=== PATIENT | male | born 1945 | race African-American/Black ===

== ENCOUNTER 2016-07-11 16:37 | Inpatient (IN) | payer OTHER, MEDICARE ==
[~2016-07-11] VITALS: Ht 177.8 cm; Wt 63.7 kg
[~2016-07-11 16:37] MED LIST: 1-ME1LIQ PO; CLON.1 PO; GLIM2TAB PO; LANTUSP SQ; METO50TA PO; PRAV20 PO
[2016-07-11 17:09] VITALS: BP 144/65; PULSE 79; RESP 18; TEMP 98.5; O2SAT 98
[2016-07-11] MEDS ORDERED: INSULIN HUMAN REGULAR 1,000 UNITS/10 ML VIAL IV PUSH ONE (17:30)
[2016-07-11] MEDS ORDERED: ONDANSETRON HCL 4 MG/2 ML VIAL IV ONE (17:30)
[2016-07-11] MEDS ORDERED: SODIUM CHLOR 0.9% 1000 ML INJ 1,000 ML IV ONE ×2 (17:30→19:00)
[2016-07-11] MEDS ORDERED: GLIM2TAB PO (17:37)
[2016-07-11] MEDS ORDERED: LISI40TA PO (17:37)
[2016-07-11] MEDS ORDERED: AMLO10TA2 PO (17:37)
[2016-07-11] MEDS ORDERED: CLON0.1T PO (17:37)
[2016-07-11] MEDS ORDERED: PRAV20TA2 PO (17:37)
[2016-07-11] MEDS ORDERED: METO50TA PO (17:37)
[2016-07-11] MEDS ORDERED: METF500T PO (17:38)
--- NOTE | 2016-07-11 17:41 | PD ---
HPI Chief Complaint: Diabetic Time Seen by Provider: 17:13 Travel History International Travel<30 days: No Contact w/Intl Traveler<30days: No Traveled to known affect area: No History of Present Illness HPI Patient had concerns of difficult to control blood sugar and some generalized weakness. He says usually sugar during the day as around 120 but today was getting around 400. He has mild nausea. No active vomiting or fever or chest pain or abdominal pain. Symptoms severity is mild to moderate. No alleviating factors. Accu-Chek here is 383. He does not use insulin. He reports compliance with his diabetic pills. Duration one day PFSH Past Medical History Arthritis: Yes Cancer: Yes (RECTAL) Cardiovascular Problems: No Chemotherapy: Yes Diabetes: Yes Patient Takes Glucophage: Yes Endocrine: Yes Gastrointestinal Disorders: Yes (RECTAL CANCER) Genitourinary: No Hepatitis: No Hiatal Hernia: No Hypertension: Yes Immune Disorder: No Implanted Vascular Access Dvce: Yes (PORT RIGHT CHEST) Medical other: No Musculoskeletal: Yes (ARTHRITIS) Neurologic: No Psychiatric: No Reproductive: No Respiratory: No Radiation Therapy: Yes Thyroid Disease: No ?: Not Past Surgical History Abdominal Surgery: Yes (BOWEL RESECTION IN 2003 TO REMOVE CANCER) AICD: No Joint Replacement: No Pacemaker: No Other Surgery: Yes (RECTAL) Social History Alcohol Use: Yes (6 BEERS WKLY) Tobacco Use: No Substance Use: No Allergies-Medications (Allergen,Severity, Reaction): Coded Allergies: No Known Allergies (Verified , 09/03/12) Reported Meds & Prescriptions Reported Meds & Active Scripts Active Reported Metformin (Metformin HCl) 500 Mg Tab 500 Mg PO BIDPC With meals Clonidine (Clonidine HCl) 0.1 Mg Tab 0.1 Mg PO DAILY Lisinopril 40 Mg Tab 40 Mg PO DAILY Amlodipine (Amlodipine Besylate) 10 Mg Tab 10 Mg PO DAILY Glimepiride 2 Mg Tab 2 Mg PO BIDAC Metoprolol Tartrate 50 Mg Tab 50 Mg PO BID Pravastatin 20 Mg Tab 20 Mg PO DAILY Review of Systems General / Constitutional: No: Fever Eyes: No: Visual changes HENT: No: Headaches Cardiovascular: No: Chest Pain or Discomfort Respiratory: No: Shortness of Breath Gastrointestinal: Positive: Nausea, No: Abdominal Pain Genitourinary: No: Dysuria Musculoskeletal: Positive: Weakness, No: Pain Skin: No Rash Neurologic: Positive: Weakness Psychiatric: No: Depression Endocrine: No: Polydipsia Hematologic/Lymphatic: No: Easy Bruising Physical Exam Narrative GENERAL: Thin elderly well-developed patient in no apparent distress. SKIN: Focused skin assessment reveals no rash and nodules. Skin is Warm and dry. HEAD: Atraumatic. Normocephalic. EYES: Pupils equal and round. No scleral icterus. No injection or drainage. ENT: No nasal bleeding or discharge. Mucous membranes pink and moist. NECK: Trachea midline. No JVD. CARDIOVASCULAR: Regular rate and rhythm. No murmur appreciated. RESPIRATORY: No accessory muscle use. Clear to auscultation. Breath sounds equal bilaterally. GASTROINTESTINAL: Abdomen soft, non-tender, nondistended. Hepatic and splenic margins not palpable. MUSCULOSKELETAL: No obvious deformities. No clubbing. No cyanosis. No edema. NEUROLOGICAL: Awake and alert. No obvious cranial nerve deficits. Motor grossly within normal limits. Normal speech. PSYCHIATRIC: Appropriate mood and affect; insight and judgment normal. Data Data Last Documented VS Vital Signs Date Time Temp Pulse Resp B/P Pulse Ox O2 Delivery O2 Flow Rate FiO2 07/11/16 17:13 86 18 97 Room Air 07/11/16 17:09 98.5 144/65 Orders Iv Access Insert/Monitor (07/11/16 17:26) Complete Blood Count With Diff (07/11/16 17:26) Basic Metabolic Panel (Bmp) (07/11/16 17:26) Insulin Human Regular Inj (Novolin R Inj (07/11/16 17:30) Sodium Chlor 0.9% 1000 Ml Inj (Ns 1000 M (07/11/16 17:30) Ondansetron Inj (Zofran Inj) (07/11/16 17:30) Urinalysis - C+S If Indicated (07/11/16 18:19) Chest, Single Ap (07/11/16 ) Labs Laboratory Tests Test 07/11/16 17:40 White Blood Count 23.9 TH/MM3 Red Blood Count 3.63 MIL/MM3 Hemoglobin 10.0 GM/DL Hematocrit 31.2 % Mean Corpuscular Volume 85.8 FL Mean Corpuscular Hemoglobin 27.5 PG Mean Corpuscular Hemoglobin 32.0 % Concent Red Cell Distribution Width 13.6 % Platelet Count 285 TH/MM3 Mean Platelet Volume 9.2 FL Neutrophils (%) (Auto) 93.1 % Lymphocytes (%) (Auto) 2.3 % Monocytes (%) (Auto) 4.4 % Eosinophils (%) (Auto) 0.0 % Basophils (%) (Auto) 0.2 % Neutrophils # (Auto) 22.3 TH/MM3 Lymphocytes # (Auto) 0.5 TH/MM3 Monocytes # (Auto) 1.1 TH/MM3 Eosinophils # (Auto) 0.0 TH/MM3 Basophils # (Auto) 0.0 TH/MM3 CBC Comment DIFF FINAL Differential Comment Sodium Level 146 MEQ/L Potassium Level 4.6 MEQ/L Chloride Level 113 MEQ/L Carbon Dioxide Level 21.4 MEQ/L Anion Gap 12 MEQ/L Blood Urea Nitrogen 69 MG/DL Creatinine 2.45 MG/DL Estimat Glomerular Filtration 32 ML/MIN Rate Random Glucose 386 MG/DL Calcium Level 9.6 MG/DL [facility] Medical Decision Making Medical Screen Exam Complete: Yes Emergency Medical Condition: Yes Medical Record Reviewed: Yes Differential Diagnosis Hyperglycemia, DKA, noncompliance Narrative Course I have reviewed the patient's electronic medical record. IV placed I gave him 1 L normal saline IV and 8 units IV regular insulin CBC shows leukocytosis of 23,000 Metabolic profile reveals some hyperglycemia and worsening of baseline renal function No clinical suspicion of DKA I gave him IV Zofran Giving him a second liter of saline Case checked out to Dr. Ferreira to assist with disposition I've added urinalysis and chest x-ray given his leukocytosis although he does not look septic or toxic Ganesh Marie MD July 11, 2016 17:41
[2016-07-11 18:00] LABS: AUTOMATED NEUTROPHIL # 22.3 TH/MM3 (1.8-7.7); BASOPHIL % 0.2 % (0.0-2.0); HEMATOCRIT 31.2 % (39.0-51.0); HEMO FLAGS DIFF FINAL; LYMPH % 2.3 % (9.0-44.0); LYMPHOCYTE # 0.5 TH/MM3 (1.0-4.8); MEAN CELL VOLUME 85.8 FL (80.0-100.0); MEAN CORPUSCULAR HEMOGLOBIN 27.5 PG (27.0-34.0); MONO % 4.4 % (0.0-8.0); NEUT % 93.1 % (16.0-70.0); PLATELET COUNT 285 TH/MM3 (150-450); RED BLOOD COUNT 3.63 MIL/MM3 (4.50-5.90); RED CELL DISTRIBUTION WIDTH 13.6 % (11.6-17.2); WHITE BLOOD COUNT 23.9 TH/MM3 (4.0-11.0)
[2016-07-11 18:30] LABS: BICARBONATE 21.4 MEQ/L (21.0-32.0)
[2016-07-11 18:32] LABS: POTASSIUM 4.6 MEQ/L (3.5-5.1)
[2016-07-11 19:02] VITALS: BP 167/74; PULSE 89; RESP 18; O2SAT 96
--- NOTE | 2016-07-11 19:06 | PD ---
Data Data Last Documented VS Vital Signs Date Time Temp Pulse Resp B/P Pulse Ox O2 Delivery O2 Flow Rate FiO2 07/11/16 21:20 82 18 148/67 100 Room Air 07/11/16 17:09 98.5 Orders Iv Access Insert/Monitor (07/11/16 17:26) Complete Blood Count With Diff (07/11/16 17:26) Basic Metabolic Panel (Bmp) (07/11/16 17:26) Insulin Human Regular Inj (Novolin R Inj (07/11/16 17:30) Sodium Chlor 0.9% 1000 Ml Inj (Ns 1000 M (07/11/16 17:30) Ondansetron Inj (Zofran Inj) (07/11/16 17:30) Urinalysis - C+S If Indicated (07/11/16 18:19) Chest, Single Ap (07/11/16 ) Sodium Chlor 0.9% 1000 Ml Inj (Ns 1000 M (07/11/16 19:00) Vancomycin Inj (Vancomycin Inj) (07/11/16 19:45) Piperacil-Tazo 3.375 Gm Premix (Zosyn 3. (07/11/16 19:45) Wound Culture And Gram Stain (07/11/16 19:39) Blood Culture (07/11/16 19:39) Lactic Acid (07/11/16 19:39) Foot, Limited (2vws) (07/11/16 ) Tibia/Fibula (Ap/Lat) (07/11/16 ) Admit Order (Ed Use Only) (07/11/16 21:39) Labs Laboratory Tests Test 07/11/16 07/11/16 07/11/16 17:40 18:50 19:57 White Blood Count 23.9 TH/MM3 Red Blood Count 3.63 MIL/MM3 Hemoglobin 10.0 GM/DL Hematocrit 31.2 % Mean Corpuscular Volume 85.8 FL Mean Corpuscular Hemoglobin 27.5 PG Mean Corpuscular Hemoglobin 32.0 % Concent Red Cell Distribution Width 13.6 % Platelet Count 285 TH/MM3 Mean Platelet Volume 9.2 FL Neutrophils (%) (Auto) 93.1 % Lymphocytes (%) (Auto) 2.3 % Monocytes (%) (Auto) 4.4 % Eosinophils (%) (Auto) 0.0 % Basophils (%) (Auto) 0.2 % Neutrophils # (Auto) 22.3 TH/MM3 Lymphocytes # (Auto) 0.5 TH/MM3 Monocytes # (Auto) 1.1 TH/MM3 Eosinophils # (Auto) 0.0 TH/MM3 Basophils # (Auto) 0.0 TH/MM3 CBC Comment DIFF FINAL Differential Comment Sodium Level 146 MEQ/L Potassium Level 4.6 MEQ/L Chloride Level 113 MEQ/L Carbon Dioxide Level 21.4 MEQ/L Anion Gap 12 MEQ/L Blood Urea Nitrogen 69 MG/DL Creatinine 2.45 MG/DL Estimat Glomerular Filtration 32 ML/MIN Rate Random Glucose 386 MG/DL Calcium Level 9.6 MG/DL Total Creatine Kinase 105 U/L Urine Color YELLOW Urine Turbidity HAZY Urine pH 5.0 Urine Specific [place] 1.011 Urine Protein 30 mg/dL Urine Glucose (UA) 1000 mg/dL Urine Ketones 10 mg/dL Urine Occult Blood SMALL Urine Nitrite NEG Urine Bilirubin NEG Urine Urobilinogen LESS THAN 2.0 MG/DL Urine Leukocyte Esterase NEG Urine RBC 1 /hpf Urine WBC 1 /hpf Urine Amorphous Sediment OCC Urine Bacteria RARE /hpf Urine Mucus FEW /lpf Microscopic Urinalysis Comment CULT NOT INDICATED Lactic Acid Level 1.7 mmol/L MDM Medical Record Reviewed: Yes Supervised Visit with CHARLY: No Narrative Course Please refer to Dr Marie's note. CBC & BMP Diagram 07/11/16 17:40 Neutrophils 93% UA: No UTI CXR: No PNA 1939: R foot infected with foul odor. Zosyn Vanco started, cultures sent, stat plain films ordered for poss necrotizing fasciitis 2026: Plain films made available and reviewed; stat call to ortho, foot xray shows necrotizing fasciitis 2042: d/w Dr Frederick for ortho who will evaluate at the bedside; d/w Dr Frederick shortly after eval; pt refused operative intervention tonight 2258: d/w Dr Garnica for FMR, continue IV abx, ortho evaluation in AM again; NPO past midnight Sepsis Criteria SIRS Criteria (2 or more): WBC > 04185, < 4000 or > 10% bands Diagnosis Primary Impression: Necrotizing fasciitis Additional Impressions: Hyperglycemia REBECCA (acute kidney injury) Diabetes Qualified Code: 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
[2016-07-11 19:15] VITALS: BP 134/66; PULSE 96; RESP 18; O2SAT 98
[2016-07-11 19:23] LABS: BACTERIA, URINE RARE /hpf; BLOOD, URINE SMALL (NEG); GLUCOSE,URINE 1000 mg/dL (NEG); KETONE, URINE 10 mg/dL (NEG); MUCUS URINE FEW /lpf (OCC); NITRITE,URINE NEG (NEG); URINE COLOR YELLOW (YELLW/STRAW)
[2016-07-11 19:24] LABS: COMMENT (UR) CULT NOT INDICATED; CULTURE IF INDICATED CULT NOT INDICATED
--- NOTE | 2016-07-11 19:38 | RADRPT ---
EXAM DATE/TIME: 07/11/2016 19:11 [facility] COMPARISON: CHEST SINGLE AP, June 15, 2015, 18:37. INDICATIONS : Weakness. MEDICAL HISTORY : Rectal cancer. SURGICAL HISTORY : [id number]. ENCOUNTER: Initial ACUITY: 2 days PAIN SCORE: 2/10 LOCATION: Bilateral chest FINDINGS: [id number] is present on the right. There is a small line across the apex of the left lung that I do not think is a pneumothorax. Heart and pulmonary vascularity are normal. Portions of the bony s keleton visualized are unremarkable. CONCLUSION: Negative chest. Noe Salcedo MD FACR on July 11, 2016 at 19:29 Board Certified Radiologist. This report was verified electronically.
[2016-07-11] MEDS ORDERED: PIPERACIL-TAZO 3.375 GM PREMIX 50 ML IV ONE (19:45)
[2016-07-11] MEDS ORDERED: VANCOMYCIN INJ 1,500 MG in SODIUM CHLORID 0.9% 500 ML INJ 500 ML IV ONE (19:45)
--- NOTE | 2016-07-11 20:30 | RADRPT ---
EXAM DATE/TIME: 07/11/2016 20:04 [facility] COMPARISON: No previous studies available for comparison. INDICATIONS : Right tibia pain and leakage. MEDICAL HISTORY : None. SURGICAL HISTORY : None. ENCOUNTER: Initial ACUITY: 1 week PAIN SCORE: 10/10 LOCATION: Right distal tibia. FINDINGS: There is subcutaneous air in the foot that extends to the ankle. Extensive digital art barbra calcifications are noted. CONCLUSION: Subcutaneous air that extends to the ankle mortise. Noe Salcedo MD FACR on July 11, 2016 at 20:24 Board Certified Radiologist. This report was verified electronically.
--- NOTE | 2016-07-11 20:34 | RADRPT ---
EXAM DATE/TIME: 07/11/2016 20:06 [facility] COMPARISON: No previous studies available for comparison. INDICATIONS : Right distal foot leakage. MEDICAL HISTORY : None. SURGICAL HISTORY : None. ENCOUNTER: Initial ACUITY: 1 week PAIN SCORE: 10/10 LOCATION: Right distal foot. FINDINGS: Extensive air is seen in the subcutaneous tissues of the foot extending to the level of the ankle mor tise consistent with necrotizing fasciitis. CONCLUSION: Subcutaneous air as described above. Noe Salcedo MD FACR on July 11, 2016 at 20:30 Board Certified Radiologist. This report was verified electronically.
[2016-07-11 21:20] VITALS: BP 148/67; PULSE 82; RESP 18; O2SAT 100
--- NOTE | 2016-07-11 22:02 | HHI.HP ---
[facility] Service Family Medicine Primary Care Physician Randy Marroquin MD Admission Diagnosis R Foot Necrotizing Fasciitis; Hyperglycemia Diagnoses: Chief Complaint: right foot pain International Travel<30 Days: No Contact w/Intl Traveler<30days: No History of Present Illness 71 y/o -[place] male with history of HTN, DM, rectal cancer presents with right foot pain. Of note, pt is a poor historian, but states he "stubbed" his foot about two months ago, since then it has been sore. Pt says the pain has waxed and waned since then. He would apply some cream on it, which would help some. States he would wash his foot as needed. Has noticed some pus and drainage, but would just wash it off. Denies any numbness/tingling in his feet. Denies any trauma, cuts, ulcers on the foot previously. No history of wounds. Has not taken any pain medicaitons. Denies any fever/chills. No chest pain, SOB , abdominal pain. Has noticed a foul smell. Denies any history of MRSA infection. Doesn't see a glass sander belt. Was seen in Dr. Marroquin's office yesterday , who recommended supportive treatment. Does state it is painful to walk, but walks around ok. History of chronic diabetes, was on insulin in the past, but not currently. Takes several oral medications. Checks his BG every morning, states it usually runs around 160. (Damon Pearson MD R1) Review of Systems ROS Limitations: Poor Historian Constitutional: DENIES: Diaphoretic episodes, Fever, Weight loss, Chills, Night Sweats Endocrine: DENIES: Polydipsia, Polyuria Eyes: COMPLAINS OF: Vision loss, DENIES: Eye pain Ears, nose, mouth, throat: DENIES: Hearing loss, Throat pain Respiratory: DENIES: Cough, Sputum production, Shortness of breath Cardiovascular: DENIES: Chest pain, Palpitations, Syncope, Lower Extremity Edema Gastrointestinal: DENIES: Abdominal pain, Black stools, Bloody stools, Constipation, Diarrhea, Nausea, Vomiting Genitourinary: DENIES: Sexual dysfunction, Urinary frequency, Urgency Musculoskeletal: DENIES: Muscle aches, Stiffness, Back pain Integumentary: DENIES: Abnormal pigmentation, Rash Hematologic/lymphatic: DENIES: Bruising, Lymphadenopathy Immunologic/allergic: DENIES: Eczema, Urticaria Neurologic: DENIES: Abnormal gait, Headache Psychiatric: DENIES: Anxiety, Confusion (Damon Pearson MD R1) Past Family Social History Past Medical History DM HTN Kidney disease Rectal cancer Past Surgical History Rectal cancer-2003 s/p bowel resection Reported Medications Reported Meds & Active Scripts Active Reported Metformin (Metformin HCl) 500 Mg Tab 500 Mg PO BIDPC With meals Clonidine (Clonidine HCl) 0.1 Mg Tab 0.1 Mg PO DAILY Lisinopril 40 Mg Tab 40 Mg PO DAILY Amlodipine (Amlodipine Besylate) 10 Mg Tab 10 Mg PO DAILY Glimepiride 2 Mg Tab 2 Mg PO BIDAC Metoprolol Tartrate 50 Mg Tab 50 Mg PO BID Pravastatin 20 Mg Tab 20 Mg PO DAILY (Damon Pearson MD R1) Allergies: Coded Allergies: No Known Allergies (Verified , 09/03/12) Active Ordered Medications Active Medications Insulin Human Regular 8 units 8 units ONCE ONCE IV PUSH Last administered on 17:30; Admin Dose 8 UNITS; Start 07/11/16 at 17:30; Stop 07/11/16 at 17: 31; Status DC Ondansetron HCl 4 mg 4 mg ONCE ONCE IV Last administered on 07/11/16 17:30; Admin Dose 4 MG; Start 07/11/16 at 17:30; Stop 07/11/16 at 17:31; Status DC Piperacillin Sod/ Tazobactam Sod (Zosyn 3.375 Gm Premix) 50 ml @ 100 mls/hr ONCE ONCE IV Last administered on 07/11/16 20:22; Admin Dose 100 MLS/HR; Start 07/11/16 at 19:45; Stop 07/11/16 at 20:14; Status DC Sodium Chloride 1,000 ml @ 2,000 mls/hr Q30M ONCE IV Last administered on 19:20; Admin Dose 2,000 MLS/HR; Start 07/11/16 at 19:00; Stop 07/11/16 at 19:29; Status DC Sodium Chloride (NS 1000 ml Inj) 1,000 ml @ 2,000 mls/hr Q30M ONCE IV Last administered on 07/11/16 17:30; Admin Dose 2,000 MLS/HR; Start 07/11/16 at 17: 30; Stop 07/11/16 at 17:59; Status DC Vancomycin HCl 1500 mg/Sodium Chloride 515 ml @ 257.5 mls/ hr ONCE ONCE IV Last administered on 07/11/16t 21:16; Admin Dose 257.5 MLS/HR; Start 07/11/16 at 19:45; Stop 07/11/16 at 21:44; Status DC Family History Mother-unknown cancer Father-smoker Siblings-healthy Social History Former tank truck operator Smoked in past, not since 1981 Denies alcohol use Denies illicit drug use Lives with at home. (Damon Pearson MD R1) Physical Exam Vital Signs Vital Signs Date Time Temp Pulse Resp B/P Pulse Ox O2 Delivery O2 Flow Rate FiO2 07/11/16 21:20 82 18 148/67 100 Room Air 07/11/16 19:15 96 18 134/66 98 Room Air 07/11/16 19:02 89 18 167/74 96 Room Air 07/11/16 17:13 86 18 97 Room Air 07/11/16 17:09 98.5 79 18 144/65 98 Physical Exam GENERAL: This is a well-nourished, well-developed patient, in no apparent distress. SKIN: Cool and dry. Infusaport in place on right upper chest. HEAD: Atraumatic. Normocephalic. Missing several front teeth. EYES: Pupils equal round and reactive. Bilateral cataracts ENT: Throat without erythema, tonsillar hypertrophy or exudate. Uvula midline. Airway patent. NECK: Trachea midline. No JVD or lymphadenopathy. Supple, nontender CARDIOVASCULAR: Regular rate and rhythm without murmurs, gallops, or rubs. RESPIRATORY: Clear to auscultation. Breath sounds equal bilaterally. No wheezes , rales, or rhonchi. GASTROINTESTINAL: Abdomen soft, non-tender, nondistended. No hepato-splenomegaly , or palpable masses. No guarding. MUSCULOSKELETAL: Right foot bandaged. Right foot swollen and crepitus appreciated. Pulses intact bilaterally. NEUROLOGICAL: Awake and alert. Motor and sensory grossly within normal limits. Normal speech. Laboratory Laboratory Tests Test 07/11/16 07/11/16 07/11/16 17:40 18:50 19:57 White Blood Count 23.9 Red Blood Count 3.63 Hemoglobin 10.0 Hematocrit 31.2 Mean Corpuscular Volume 85.8 Mean Corpuscular Hemoglobin 27.5 Mean Corpuscular Hemoglobin 32.0 Concent Red Cell Distribution Width 13.6 Platelet Count 285 Mean Platelet Volume 9.2 Neutrophils (%) (Auto) 93.1 Lymphocytes (%) (Auto) 2.3 Monocytes (%) (Auto) 4.4 Eosinophils (%) (Auto) 0.0 Basophils (%) (Auto) 0.2 Neutrophils # (Auto) 22.3 Lymphocytes # (Auto) 0.5 Monocytes # (Auto) 1.1 Eosinophils # (Auto) 0.0 Basophils # (Auto) 0.0 CBC Comment DIFF FINAL Differential Comment Sodium Level 146 Potassium Level 4.6 Chloride Level 113 Carbon Dioxide Level 21.4 Anion Gap 12 Blood Urea Nitrogen 69 Creatinine 2.45 Estimat Glomerular Filtration 32 Rate Random Glucose 386 Calcium Level 9.6 Urine Color YELLOW Urine Turbidity HAZY Urine pH 5.0 Urine Specific [place] 1.011 Urine Protein 30 Urine Glucose (UA) 1000 Urine Ketones 10 Urine Occult Blood SMALL Urine Nitrite NEG Urine Bilirubin NEG Urine Urobilinogen LESS THAN 2.0 Urine Leukocyte Esterase NEG Urine RBC 1 Urine WBC 1 Urine Amorphous Sediment OCC Urine Bacteria RARE Urine Mucus FEW Microscopic Urinalysis Comment CULT NOT INDICATED Lactic Acid Level 1.7 Date/Time Procedure Status Source Growth 07/11/16 20:00 Aerobic Blood Culture Received Blood Peripheral Pending 07/11/16 20:00 Anaerobic Blood Culture Received Blood Peripheral Pending (Damon Pearson MD R1) Result Diagram: 07/11/16 1740 07/11/16 1740 Assessment and Plan Assessment and Plan 71 y/o -[place] male with history of HTN, DM presents with left foot pain, found to have necrotizing fasciitis. Will admit for antibiotics and orthopedic consultation for management. Code Status Full Discussed Condition With Dr. Garnica (Damon Pearson MD R1) Attending Attestation THIS CASE WAS DISCUSSED WITH THE RESIDENT PHYSICIANS. I HAVE REVIEWED THE RECORD AND AGREE WITH THE ABOVE NOTE AND PLAN OF CARE WAS DISCUSSED. I HAVE AUTHORIZED THE ORDER FOR ADMISSION TO AN IN-PATIENT STATUS. (Rodrigo Fishman MD) Problem List: (1) Necrotizing fasciitis Status: Acute Plan: Pt with 2 month history of right foot pain. Unsure of inciting mechanism. Pt's history positive for diabetes, poorly controlled on admission. Xrays performed in ED, consistent with necrotizing fasciitis. Crepitus on exam. ED physician discussed case with Ortho who evaluated pt. Pt refusing operative intervention tonight. Pt will likely need amputation. WBC 23.9, 93% neutrophils; Lactic acid 1.7 Afebrile, HR and RR wnl. No hypotension Foot xray: Extensive air seen in subcutaneous tissues of the foot extending to the level of the ankle mortise consistent with necrotizing fasciitis -Orthopedic surgery consulted, appreciate recs -Continue Vancomycin for MRSA coverage; pharmacy consulted -Continue Zosyn 3.375g q6H, renally dosed -Clindamycin 600mg IV q8H for its antitoxin effects -Blood cultures pending -Wound cultures pending -NPO after midnight -Morphine PRN pain control -IV fluids (2) Diabetes Status: Chronic Plan: History of chronic diabetes. Pt states his home BG runs around 160s. Elevated to 386 on admission. Pt on metformin and glimepiride at home. May benefit from insulin upon discharge at f/u with PCP -Hold home oral meds -Accuchecks at bedside -Low-dose sliding scale insulin (3) REBECCA (acute kidney injury) Status: Chronic Plan: BUN 69, Cr 2.45 on admission; BUN/Cr 28, consistent with prerenal etiology. Previous baseline of 1.4 at last admission, after trending down from 2.38. Likely component of diabetes and HTN. Does see kidney doctor. Received 1L bolus in ED -Continue IV fluids -Daily BMPs (4) HTN (hypertension) Status: Chronic Plan: BP 144/65 on admission. On several outpatient medications. Doesn't check his BPs at home Continue home meds -Amlodipine 10mg daily -Clonidine 0.1mg daily -Metoprolol 50mg BID -Lisinopril 40mg daily (5) FEN Status: Acute Plan: Fluids: NS @ 125mls/hr Electrolytes: mildly elevated Na, Cl; continue to monitor Nutrition: NPO at midnight DVT ppx: SCDs (Damon Pearson MD R1) Physician Certification 2 Midnight Certification Type: Admission for Inpatient Services Order for Inpatient Services The services are ordered in accordance with Medicare regulations or non- Medicare payer requirements, as applicable. In the case of services not specified as inpatient-only, they are appropriately provided as inpatient services in accordance with the 2-midnight benchmark. Estimated LOS (days): 3 days is the estimated time the patient will need to remain in the hospital, assuming treatment plan goals are met and no additional complications. 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
[2016-07-11] MEDS ORDERED: ACETAMINOPHEN 325 MG TAB PO PRN (22:30)
[2016-07-11] MEDS ORDERED: ONDANSETRON HCL 4 MG/2 ML VIAL IVP PRN (22:30)
[2016-07-11] MEDS ORDERED: SODIUM CHLORIDE 0.9% FLUSH 10 ML FLUSH IV FLUSH PRN (22:30)
[2016-07-11] MEDS ORDERED: NALOXONE HCL 0.4 MG/ML AMP IV PRN ×2 (22:30→22:45)
[2016-07-11] MEDS ORDERED: GLUCAGON 1 MG/ML VIAL OTHER PRN (22:45)
[2016-07-11] MEDS ORDERED: Vancomycin Consult Pharmacy 1 EA OTHER SCH (22:45)
[2016-07-11] MEDS ORDERED: DEXTROSE 50% IN WATER 50 ML VIAL(D50) IV PRN (22:45)
[2016-07-11] MEDS ORDERED: MORPHINE SULFATE 4 MG/ML INJ IV PRN ×2 (22:45)
[2016-07-11] MEDS ORDERED: DOCUSATE SODIUM 50 MG/SENNA 8.6 MG TAB PO PRN (23:00)
[2016-07-11] MEDS ORDERED: ENALAPRILAT 1.25 MG/ML VIAL IV PRN (23:15)
[2016-07-11] MEDS: SODIUM CHLOR 0.9% 1000 ML INJ 1,000 ML IV SCH (23:33)
[2016-07-12] VITALS (7 sets, daily range): BP systolic 122–173; BP diastolic 56–80; PULSE 58–90; RESP 16–20; TEMP 95.6–100.6; O2SAT 95–98
[2016-07-12] MEDS: MORPHINE SULFATE 4 MG/ML INJ IV PRN ×2 (00:41→08:44)
[2016-07-12 00:47] LABS: APTT (PATIENT) 29.2 SEC (24.3-30.1); INTERNATIONAL NORMALIZED RATIO 1.1 RATIO; PROTHROMBIN TIME - PATIENT 12.1 SEC (9.8-11.6)
[2016-07-12] MEDS: CLINDAMYCIN INJ 600 MG in SODIUM CHLORIDE 0.9% INJ 100 ML IV SCH ×4 (00:51→23:53)
[2016-07-12] MEDS: PIPERACIL-TAZO 2.25 GM PREMIX 50 ML IV SCH ×4 (00:54→20:44)
[2016-07-12] MEDS ORDERED: PIPERACIL-TAZO 3.375 GM PREMIX 50 ML IV SCH (02:00)
[2016-07-12] MEDS: SODIUM CHLOR 0.9% 1000 ML INJ 1,000 ML IV SCH ×3 (05:44→20:45)
--- NOTE | 2016-07-12 05:48 | MB ---
cc: ONEL JAIME M.D. DATE OF CONSULTATION 07/12/2016 REASON FOR CONSULTATION Requested to evaluate right foot necrotizing fasciitis. HISTORY OF PRESENT ILLNESS Onel Quarles is a 71-year-old [id number] diabetic male who states he has had difficulty with his right foot over at least a 2-month period time and over the last 2 weeks it has gotten particularly bad and he has had significant weakness and some nausea and he presented to the ER and was found to have a white blood cell count of 23.9 purulent drainage and necrosis and foul odor from his right foot with some gas present on the dorsum of the foot, midfoot and some fluctuance but no significant tension on the plantar surface arch region of the midfoot with marked purulent drainage and necrosis of several of his toes. The patient does have a faint pulse intact and he does have a faint pulse on the other side. He has got sensation on the other foot and he has sensation at the ankle on the right side. He has good motion of his hip and his knee pain and he does not appear to be any in any distress. PAST MEDICAL HISTORY 1. Rectal cancer. 2. Diabetes. 3. He has undergone chemotherapy and had a port in his right chest wall. 4. He has prior surgical intervention for the cancer. SOCIAL HISTORY The patient does state he drinks beer. He does not use alcohol. ALLERGIES He has no known drug allergies. REGULAR MEDICATIONS 1. Metformin. 2. Clonidine. 3. Lisinopril. 4. Amlodipine. 5. Glimepiride. 6. Metoprolol. 7. Pravastatin. PHYSICAL EXAMINATION As noted above. X-RAYS X-ray examination of the foot from 07/11/2016 does show some gas on the plantar surface of the foot and some gas on the dorsum arch of the foot. He has got calcified vessels, some lytic changes of several of the bones of his toes. ASSESSMENT Gas gangrene. MEDICAL DECISION MAKING The patient's condition was discussed. Options for treatment were discussed. As well discussed with the emergency room physician the patient is indicated for below-knee amputation. The fact that he has had this process going on for several months and his vital signs look very good make me believe that this is not an emergency that has to be done tonight and that it is appropriate for the patient to mentally prepare psychologically. He wishes to talk this over with his and I think that is appropriate and I have told him that I will talk to him again on Friday. The original conversation was about 8:30 on 07/11 and I explained, if he is significantly worsening, then we would need to proceed sooner but otherwise recommendation would be amputation at a later either by me or one of my partners. The patient has a good understanding. He is not ready make a decision at this time. We will continue to follow him. All of his questions were answered. MD YOBANY White/MELANIA /12:57 AM /5:38 AM
[2016-07-12] MEDS: INSULIN ASPART SUPPLEMENTAL SCALE SQ SCH ×4 (05:51→21:30)
[2016-07-12 06:17] LABS: AUTOMATED NEUTROPHIL # 23.6 TH/MM3 (1.8-7.7); BASOPHIL % 0.1 % (0.0-2.0); HEMATOCRIT 29.1 % (39.0-51.0); HEMO FLAGS DIFF FINAL; LYMPH % 2.6 % (9.0-44.0); LYMPHOCYTE # 0.7 TH/MM3 (1.0-4.8); MEAN CELL VOLUME 85.4 FL (80.0-100.0); MEAN CORPUSCULAR HEMOGLOBIN 27.4 PG (27.0-34.0); MONO % 5.4 % (0.0-8.0); NEUT % 91.9 % (16.0-70.0); PLATELET COUNT 274 TH/MM3 (150-450); RED CELL DISTRIBUTION WIDTH 13.6 % (11.6-17.2); WHITE BLOOD COUNT 25.6 TH/MM3 (4.0-11.0)
[2016-07-12 06:27] LABS: BICARBONATE 21.3 MEQ/L (21.0-32.0); POTASSIUM 4.4 MEQ/L (3.5-5.1)
[2016-07-12] MEDS ORDERED: VANCOMYCIN INJ 1,250 MG in SODIUM CHLOR 0.9% 250 ML INJ 250 ML IV SCH (08:00)
[2016-07-12] MEDS: cloNIDine HCL 0.1 MG TAB PO SCH (08:45)
[2016-07-12] MEDS: PRAVASTATIN SOD 20 MG TAB PO SCH (08:45)
[2016-07-12] MEDS: LISINOPRIL 20 MG TAB PO SCH (08:45)
[2016-07-12] MEDS: METOPROLOL TARTRATE 50 MG TAB PO SCH ×2 (08:45→20:50)
[2016-07-12] MEDS: SODIUM CHLORIDE 0.9% FLUSH 10 ML FLUSH IV FLUSH SCH ×2 (08:49→20:44)
[2016-07-12] MEDS ORDERED: GENTAMICIN SULFATE 80 MG/2 ML VIAL ONE (09:06)
[2016-07-12] MEDS ORDERED: ACETAMINOPHEN 1000 MG/100 ML VIAL IV ONE (09:10)
[2016-07-12] MEDS ORDERED: FAMOTIDINE 20 MG/2 ML VIAL ONE (09:10)
--- NOTE | 2016-07-12 09:29 | HHI.FPPN ---
Subjective Remarks FM Attending Note: Patient seen and examined. S: Chart and all resident physician notes reviewed. In summary this is a 71 year old male who was admitted with an admission diagnosis of Rt Foot Necrotizing Fasciitis; Hyperglycemia. Patient reported minor injury to foot about 2 months prior. Had noted some pain. No fever. Found to have infection with subcutaneous emphysema; elevated WBC; probable necrotizing fasciitis. Patient underwent a right BKA amputation. Objective Vitals Vital Signs Date Time Temp Pulse Resp B/P Pulse Ox O2 Delivery O2 Flow Rate FiO2 07/12/16 08:00 95.7 76 17 142/72 98 07/12/16 04:00 96.9 66 18 151/69 96 07/12/16 00:30 100.6 90 20 173/80 95 07/11/16 23:16 21 07/11/16 21:20 82 18 148/67 100 Room Air 07/11/16 19:15 96 18 134/66 98 Room Air 07/11/16 19:02 89 18 167/74 96 Room Air 07/11/16 17:13 86 18 97 Room Air 07/11/16 17:09 98.5 79 18 144/65 98 I/O 07/11/16 07/11/16 07/11/16 07/12/16 07/12/16 07/12/16 07:00 15:00 23:00 07:00 15:00 23:00 Intake Total 0 ml Output Total 550 ml Balance -550 ml Intake Oral 0 ml Output Urine Total 550 ml # Bowel Movements 0 Result Diagram: 07/12/16 0542 07/12/16 0542 Other Results Item Value Date Time Total Creatine Kinase 105 U/L 07/11/16 1740 Urine Specific [place] 1.011 07/11/16 1850 Urine Occult Blood SMALL H 07/11/16 1850 Urine Nitrite NEG 07/11/16 1850 Urine Leukocyte Esterase NEG 07/11/16 1850 Urine RBC 1 /hpf 07/11/16 1850 Urine WBC 1 /hpf 07/11/16 1850 Imaging Last 48 hours Impressions Tibia/Fibula X-Ray 07/11/16 0000 Signed Impressions: Service Date/Time: June 20:04 - CONCLUSION: Subcutaneous air that extends to the ankle mortise. Noe Salcedo MD FACR Foot X-Ray 07/11/16 0000 Signed Impressions: Service Date/Time: June 20:06 - CONCLUSION: Subcutaneous air as described above. Noe Salcedo MD FACR Chest X-Ray 07/11/16 0000 Signed Impressions: Service Date/Time: June 19:11 - CONCLUSION: Negative chest. Noe Salcedo MD FACR Objective Remarks O. CONSTITUTIONAL/GEN: normally nourished, in NAD. EYES: conjunctiva normal, PERRLA, EOMI. LUNGS: clear A-P, respiratory effort is normal. CARDIOVASCULAR: RR GI/ABD: soft without masses, without organomegaly. NEURO: No focal deficits. SKIN: color normal, no visible rashes noted. PSYCH/MENTAL STATUS: Alert and oriented x 3. A/P Assessment and Plan 71 y/o -[place] male with history of HTN, DM presents with left foot pain, found to have necrotizing fasciitis. Will admit for antibiotics and orthopedic consultation for management. Problem List: (1) Necrotizing fasciitis Status: Acute Plan: Pt with 2 month history of right foot pain. Unsure of inciting mechanism. Pt's history positive for diabetes, poorly controlled on admission. Xrays performed in ED, consistent with necrotizing fasciitis. Crepitus on exam. ED physician discussed case with Ortho who evaluated pt. Pt refusing operative intervention tonight. Pt will likely need amputation. WBC 23.9, 93% neutrophils; Lactic acid 1.7 Afebrile, HR and RR wnl. No hypotension Foot xray: Extensive air seen in subcutaneous tissues of the foot extending to the level of the ankle mortise consistent with necrotizing fasciitis -Orthopedic surgery consulted, appreciate recs -Continue Vancomycin for MRSA coverage; pharmacy consulted -Continue Zosyn 3.375g q6H, renally dosed -Clindamycin 600mg IV q8H for its antitoxin effects -Blood cultures pending -Wound cultures pending -NPO after midnight -Morphine PRN pain control -IV fluids 07/12/17 Patient now s/p right BKA. Continue antibiotic therapy. (2) Diabetes Status: Chronic Plan: History of chronic diabetes. Pt states his home BG runs around 160s. Elevated to 386 on admission. Pt on metformin and glimepiride at home. May benefit from insulin upon discharge at f/u with PCP -Hold home oral meds -Accuchecks at bedside -Low-dose sliding scale insulin (3) REBECCA (acute kidney injury) Status: Chronic Plan: BUN 69, Cr 2.45 on admission; BUN/Cr 28, consistent with prerenal etiology. Previous baseline of 1.4 at last admission, after trending down from 2.38. Likely component of diabetes and HTN. Does see kidney doctor. Received 1L bolus in ED -Continue IV fluids -Daily BMPs (4) HTN (hypertension) Status: Chronic Plan: BP 144/65 on admission. On several outpatient medications. 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
--- NOTE | 2016-07-12 10:59 | PD.OP ---
Operative Report Preoperative Diagnosis: (1) Gangrene of toe of right foot Postoperative Diagnosis: (1) Gangrene of toe of right foot Procedure: Right Below Knee Amputation Anesthesia: General Surgeon: Jean Marie Frederick Glue Jointer Feeder(s): staff Operation and Findings: see dictation Jean Marie Frederick MD July 12, 2016 10:59
[2016-07-12] MEDS ORDERED: diphenhydrAMINE HCL 25 MG CAP PO PRN (11:00)
[2016-07-12] MEDS ORDERED: MORPHINE SULFATE 30 MG/30 ML PCA IV SCH (11:00)
[2016-07-12] MEDS ORDERED: MISCELLANEOUS PHARMACY INFORMATION XX ONE (11:00)
[2016-07-12] MEDS ORDERED: DO NOT ADM ANY ANTICOAGULANT DRUGS PRN (11:00)
[2016-07-12] MEDS ORDERED: Post-op Orders (for Pharmacy) MISC XX ONE (11:00)
[2016-07-12] MEDS ORDERED: D5-1/2 NS + KCL 20 MEQ INJ 1,000 ML IV SCH (11:00)
[2016-07-12] MEDS ORDERED: fentaNYL CITRATE 250 MCG/5 ML AMP ONE (11:15)
[2016-07-12] MEDS ORDERED: ONDANSETRON HCL 4 MG/2 ML VIAL IV PUSH ONE (13:24)
[2016-07-12] MEDS ORDERED: NEOSTIGMINE 3 MG/3 ML SYR IV ONE (13:24)
[2016-07-12] MEDS ORDERED: PROPOFOL 200 MG/20 ML AMP IV ONE (13:24)
[2016-07-12] MEDS ORDERED: ePHEDrine/NS 25 MG/5 ML SYR IV ONE (13:24)
[2016-07-12] MEDS: PCA - TOTAL MG MORPHINE DELIVERED PER SHIFT SCH ×2 (14:00→20:45)
--- NOTE | 2016-07-12 20:55 | EKG ---
Date Performed: 07/12/2016 Time Performed: 09:16:19 PTAGE: 71 years EKG: Sinus rhythm NONSPECIFIC T-WAVE ABNORMALITY BORDERLINE ECG PREVIOUS TRACING : 06/16/2015 05.50 Compared to prior tracing no significant change DOCTOR: Jayme Mcclain Interpretating Date/Time 07/12/2016 20:53:59
[2016-07-12] MEDS ORDERED: VANCOMYCIN 1,000 MG/NS 250 ML IV SCH ×2 (21:00)
[2016-07-12] MEDS ORDERED: VANCOMYCIN 1,000 MG/NS 250 ML IV ONE ×2 (21:00)
[2016-07-13] VITALS (8 sets, daily range): BP systolic 118–148; BP diastolic 58–72; PULSE 51–62; RESP 16–20; TEMP 95.3–96.1; O2SAT 97–100
[2016-07-13] MEDS: PIPERACIL-TAZO 2.25 GM PREMIX 50 ML IV SCH ×4 (02:26→21:24)
[2016-07-13 04:40] LABS: AUTOMATED NEUTROPHIL # 24.1 TH/MM3 (1.8-7.7); BASOPHIL # 0.1 TH/MM3 (0-0.2); BASOPHIL % 0.4 % (0.0-2.0); EOSINOPHIL % 0.1 % (0.0-4.0); HEMATOCRIT 28.8 % (39.0-51.0); HEMO FLAGS DIFF FINAL; LYMPH % 4.3 % (9.0-44.0); LYMPHOCYTE # 1.1 TH/MM3 (1.0-4.8); MEAN CELL VOLUME 84.4 FL (80.0-100.0); MEAN CORPUSCULAR HEMOGLOBIN 27.4 PG (27.0-34.0); MEAN CORPUSCULAR HGB CONC 32.5 % (32.0-36.0); MONO % 4.4 % (0.0-8.0); NEUT % 90.8 % (16.0-70.0); PLATELET COUNT 258 TH/MM3 (150-450); RED BLOOD COUNT 3.42 MIL/MM3 (4.50-5.90); RED CELL DISTRIBUTION WIDTH 14.2 % (11.6-17.2); WHITE BLOOD COUNT 26.5 TH/MM3 (4.0-11.0)
[2016-07-13 04:59] LABS: BICARBONATE 18.2 MEQ/L (21.0-32.0); POTASSIUM 5.1 MEQ/L (3.5-5.1)
[2016-07-13] MEDS: PCA - TOTAL MG MORPHINE DELIVERED PER SHIFT SCH ×3 (06:00→22:00)
[2016-07-13] MEDS: INSULIN ASPART SUPPLEMENTAL SCALE SQ SCH ×4 (06:25→21:00)
[2016-07-13] MEDS: SODIUM CHLOR 0.9% 1000 ML INJ 1,000 ML IV SCH ×2 (06:26→14:46)
--- NOTE | 2016-07-13 07:21 | HHI.FPPN ---
Subjective Remarks Mr. Quarles is doing well this morning. He has no complaints. He denies fever/ chills, nausea/vomiting. He states that his pain is well controlled. He has been able to ambulate to the bathroom with assistance. He did have an episode of hypothermia where his temperature went down to 95.6F at 8 PM yesterday. He said that he doesn't feel cold right now and felt better after he was given an extra blanket. (Mabel Baron MD R1) Objective Vitals Vital Signs Date Time Temp Pulse Resp B/P Pulse Ox O2 Delivery O2 Flow Rate FiO2 07/13/16 06:00 18 07/13/16 04:00 95.5 52 18 118/58 98 07/13/16 00:00 95.7 61 20 126/60 97 07/12/16 20:45 18 07/12/16 20:00 95.6 58 20 122/56 98 07/12/16 16:07 98 21 07/12/16 16:00 96.6 62 16 124/60 98 07/12/16 14:00 16 07/12/16 12:00 96.1 59 16 124/63 98 07/12/16 11:45 97.5 59 17 117/57 99 Room Air 07/12/16 11:45 15 07/12/16 11:30 62 17 123/58 98 Room Air 07/12/16 11:15 65 15 103/57 100 Room Air 07/12/16 11:08 97.4 71 15 108/59 100 Room Air 07/12/16 08:00 95.7 76 17 142/72 98 I/O 07/12/16 07/12/16 07/12/16 07/13/16 07/13/16 07/13/16 07:00 15:00 23:00 07:00 15:00 23:00 Intake Total 0 ml 1850 ml 758 ml 1220 ml Output Total 550 ml 600 ml 350 ml 600 ml Balance -550 ml 1250 ml 408 ml 620 ml Intake Oral 0 ml 0 ml 120 ml 240 ml IV Total 50 ml 638 ml 980 ml Other 1800 ml Output Urine Total 550 ml 500 ml 350 ml 600 ml Estimated Blood Loss 100 ml # Bowel Movements 0 1 0 0 (Mabel Baron MD R1) Result Diagram: 07/13/16 0252 07/13/16 0252 Objective Remarks O. CONSTITUTIONAL/GEN: normally nourished, somewhat cachectic shoulders, in NAD. EYES: conjunctiva normal, PERRLA, EOMI. LUNGS: CTAB A-P, respiratory effort is normal. CARDIOVASCULAR: RRR, NO MRG GI/ABD: soft without masses, without organomegaly. NEURO: No focal deficits. SKIN: color normal, no visible rashes noted. EXT: R BKA wrapped and elevated in bed PSYCH/MENTAL STATUS: Alert and oriented x 3. (Mabel Baron MD R1) A/P Assessment and Plan 71 y/o -[place]i male with history of HTN, DM presents with left foot pain, found to have necrotizing fasciitis. Patient was admitted for antibiotics and orthopedic consultation for management. 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 Currently on vancomycin, Zosyn, and clindamycin IV. Wound culture growing gram- negative rods. Sensitivity pending. We'll adjust antibiotic regimen accordingly. Discussed with Dr. Fishman Discharge Planning Pending orthopedic surgery recommendations. Possibly in the next 2-3 days. (Mabel Baron MD R1) Attending Attestation Case reviewed and discussed with the resident team. Agree with plan of care as discussed with me and documented in the resident note. (Rodrigo Fishman MD) Problem List: (1) Necrotizing fasciitis Status: Resolved Plan: Pt with 2 month history of right foot pain. Unsure of inciting mechanism. Pt's history positive for diabetes, poorly controlled on admission. Xrays performed in ED, consistent with necrotizing fasciitis. Crepitus on exam. Foot xray: Extensive air seen in subcutaneous tissues of the foot extending to the level of the ankle mortise consistent with necrotizing fasciitis. ED physician discussed case with Ortho who evaluated pt. right BKA was performed on 519 WBC 23.9, 93% neutrophils; Lactic acid 1.7 on admission WBC 26.5, 90.8 % neutrophils today 07/13 Hypothermic, HR and RR wnl. No hypotension -Orthopedic surgery on board -Continue Vancomycin for MRSA coverage; pharmacy consulted -Continue Zosyn 3.375g q6H, renally dosed -Continue Clindamycin 600mg IV q8H for its antitoxin effects -Blood cultures show no growth in one day -Wound cultures growing gram-negative rods, sensitivity pending -Morphine IV PRN pain control (2) S/P below knee amputation Status: Acute Plan: Right BKA performed on 07/12 PT consulted to assist with activity and post-discharge equipment needs -Case management consulted to assist with disposition needs (3) Diabetes Status: Chronic Plan: History of chronic diabetes. Pt states his home BG runs around 160s. Elevated to 386 on admission. Pt on metformin and glimepiride at home. May benefit from insulin upon discharge at f/u with PCP -Hold home oral meds -Accuchecks at bedside -Levemir 5 units twice a day -Insulin aspart 3 units 3 times a day before meals -Low-dose sliding scale insulin (4) REBECCA (acute kidney injury) Status: Resolved Plan: BUN 69, Cr 2.45 on admission; BUN/Cr 28, consistent with prerenal etiology. Previous baseline of 1.4 at last admission, after trending down from 2.38. Likely component of diabetes and HTN. Does see kidney doctor. Received 1L bolus in ED -Continue normal saline at 100 mls/hr -Daily BMPs (5) HTN (hypertension) Status: Chronic Plan: BP 144/65 on admission. On several outpatient medications. Doesn't check his BPs at home Continue home meds -Amlodipine 10mg daily -Clonidine 0.1mg daily -Metoprolol 50mg BID -Lisinopril 40mg daily -Will hold blood pressure medications based on patient's current blood pressure and heart rates monitored with every 4 vital signs (6) FEN Status: Acute Plan: Fluids: NS @ 100mls/hr due to renal insufficiency, creatinine is currently trending down but is still elevated Electrolytes: mildly elevated Na at 150, Cl elevated to 120. 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
[2016-07-13] MEDS: INSULIN ASPART 1,000 UNITS/10 ML VIAL SQ SCH ×3 (08:00→17:35)
[2016-07-13] MEDS: SODIUM CHLORIDE 0.9% FLUSH 10 ML FLUSH IV FLUSH SCH ×2 (08:12→21:00)
[2016-07-13] MEDS: cloNIDine HCL 0.1 MG TAB PO SCH (08:17)
[2016-07-13] MEDS: LISINOPRIL 20 MG TAB PO SCH (08:17)
[2016-07-13] MEDS: PRAVASTATIN SOD 20 MG TAB PO SCH (08:18)
[2016-07-13] MEDS: INSULIN DETEMIR 100 UNITS/ML VIAL SQ SCH ×2 (08:24→21:00)
[2016-07-13] MEDS: CLINDAMYCIN INJ 600 MG in SODIUM CHLORIDE 0.9% INJ 100 ML IV SCH ×2 (08:59→17:31)
--- NOTE | 2016-07-13 10:14 | PD.ORT.PN ---
Subjective Post Op Day #: 1 Subjective Remarks pain tolerable Objective Vitals Vital Signs Date Time Temp Pulse Resp B/P Pulse Ox O2 Delivery O2 Flow Rate FiO2 07/13/16 09:30 95.5 62 16 135/72 98 07/13/16 08:00 95.3 60 16 148/68 99 07/13/16 06:00 18 07/13/16 04:00 95.5 52 18 118/58 98 07/13/16 00:00 95.7 61 20 126/60 97 07/12/16 20:45 18 07/12/16 20:00 95.6 58 20 122/56 98 07/12/16 16:07 98 21 07/12/16 16:00 96.6 62 16 124/60 98 07/12/16 14:00 16 07/12/16 12:00 96.1 59 16 124/63 98 07/12/16 11:45 97.5 59 17 117/57 99 Room Air 07/12/16 11:45 15 07/12/16 11:30 62 17 123/58 98 Room Air 07/12/16 11:15 65 15 103/57 100 Room Air 07/12/16 11:08 97.4 71 15 108/59 100 Room Air I/O 07/12/16 07/12/16 07/12/16 07/13/16 07/13/16 07/13/16 07:00 15:00 23:00 07:00 15:00 23:00 Intake Total 0 ml 1850 ml 758 ml 1220 ml Output Total 550 ml 600 ml 350 ml 600 ml Balance -550 ml 1250 ml 408 ml 620 ml Intake Oral 0 ml 0 ml 120 ml 240 ml IV Total 50 ml 638 ml 980 ml Other 1800 ml Output Urine Total 550 ml 500 ml 350 ml 600 ml Estimated Blood Loss 100 ml # Bowel Movements 0 1 0 0 Result Diagram: 07/13/16 0252 07/13/16251 Objective Remarks in chair, nad, in room dressing c/c/i thigh soft Assessment & Plan Ortho Post Op Day #: 1 Problem List: Assessment and Plan s/p R BKA POD#[address] Frederick pain control drew GOMEZ med management ortho stable Herb Dixon July 13, 2016 10:14
[2016-07-13] MEDS: METOPROLOL TARTRATE 50 MG TAB PO SCH ×2 (11:00→21:26)
[2016-07-13] MEDS: HEPARIN SODIUM - SQ 10,000 UNITS/ML VIAL SQ SCH ×2 (14:44→21:28)
--- NOTE | 2016-07-13 18:26 | MP ---
cc: ONEL FREDERICK DATE OF SURGERY 07/11/16 PREOPERATIVE DIAGNOSIS Right foot gas gangrene POSTOPERATIVE DIAGNOSIS Right foot gas gangrene PROCEDURE Right below-knee amputation ANESTHESIA General SURGEON Isa Frederick MD [employer] SURGEON Staff ESTIMATED BLOOD LOSS 50 mL DRAINS None. SPECIMEN Routine. COMPLICATIONS None known. INDICATION Onel Quarles is a 71 year old diabetic male with a progressive condition of his right foot base who states over the last two weeks he has had worsening difficulty ambulating and he began having systemic symptoms and he presented to the emergency room last night with a white blood cell count approximately 24,000. He had x-rays of the foot that showed gas within the soft tissue to the level of the ankle. The patient was evaluated in the emergency room last night and I discussed with him about proceeding with amputation surgery and, at that time, he was not psychologically prepared. We discussed his condition again this morning and I believe he was feeling more symptoms in the foot. He had talked it over with his and he felt psychologically prepared and he said he wanted to proceed as soon as possible. Based on the fact that there were gas in the soft tissue it did make the most sense to proceed sooner rather than later and he was placed into the operative schedule this morning. We talked about the risk of continued infection, nerve damage, blood vessel damage. We talked about the rehabilitative process for below-knee amputation with the goal to have a prosthesis. We talked about the risk of spreading infection and possible knee breakdown and need for revision surgery, possibility of anesthetic complications, medical complications and unforeseen possible complications. All of his questions were answered. He wished to press on with surgery. Informed consent was obtained. PROCEDURE IN DETAIL The patient is brought to the operating room and was placed under general anesthetic. The right lower extremity was prepped and draped in usual sterile fashion. IV antibiotics had been ongoing since he was admitted. We did give additional Ancef the evening before the surgery. Time-out was completed. The limb was elevated and then squeezed at the level of the calf and then the tourniquet was inflated. We rolando out the planned surgical excision in large [place] type incision. I then proceeded with electrocautery at the fascial level and traversing the muscle and then coming into vascular areas and clamping this off and then exposing the bone and performing subperiosteal dissection and then using an oscillating saw to do a transverse tibial cut we made a beveled cut anteriorly. We then used rongeur to transverse the fibula and then completed the amputation posteriorly and this specimen was placed at the back table to be sent to pathology. We then let the tourniquet down and clamped any other additional bleeders and then proceeded to tie off all of our bleeders and then irrigated out with copious amounts of irrigation. Making a pursestring closure of the ostium at the distal end of the tibial amputation site and then proceeded to connect the fascial layers anterior to posterior and completed this throughout and then the subcuticular with absorbable suture and then nylon on the skin and then Xeroform was applied. Sterile dressing applied. The patient was awaken and returned to the recovery room in stable condition. MD YOBANY White/ /11:11 AM /6:05 PM
[2016-07-13 19:29] LABS: BICARBONATE 22.1 MEQ/L (21.0-32.0); POTASSIUM 3.6 MEQ/L (3.5-5.1)
[2016-07-13] MEDS ORDERED: VANCOMYCIN INJ 1,250 MG in SODIUM CHLOR 0.9% 250 ML INJ 250 ML IV ONE (21:00)
[2016-07-14] VITALS: BP 129/60; PULSE 63; RESP 17; TEMP 96; O2SAT 100
[2016-07-14] MEDS: SODIUM CHLOR 0.9% 1000 ML INJ 1,000 ML IV SCH ×3 (02:14→21:59)
[2016-07-14] MEDS: CLINDAMYCIN INJ 600 MG in SODIUM CHLORIDE 0.9% INJ 100 ML IV SCH ×3 (02:16→16:06)
[2016-07-14] MEDS: PIPERACIL-TAZO 2.25 GM PREMIX 50 ML IV SCH ×4 (04:16→20:33)
[2016-07-14 05:05] LABS: AUTOMATED NEUTROPHIL # 13.7 TH/MM3 (1.8-7.7); EOSINOPHIL # 0.1 TH/MM3 (0-0.4); EOSINOPHIL % 0.3 % (0.0-4.0); HEMATOCRIT 26.9 % (39.0-51.0); HEMO FLAGS DIFF FINAL; LYMPH % 8.9 % (9.0-44.0); LYMPHOCYTE # 1.4 TH/MM3 (1.0-4.8); MEAN CELL VOLUME 83.8 FL (80.0-100.0); MEAN CORPUSCULAR HEMOGLOBIN 27.3 PG (27.0-34.0); MEAN CORPUSCULAR HGB CONC 32.6 % (32.0-36.0); MONO % 2.6 % (0.0-8.0); NEUT % 88.2 % (16.0-70.0); PLATELET COUNT 289 TH/MM3 (150-450); RED BLOOD COUNT 3.22 MIL/MM3 (4.50-5.90); RED CELL DISTRIBUTION WIDTH 14.1 % (11.6-17.2); WHITE BLOOD COUNT 15.5 TH/MM3 (4.0-11.0)
[2016-07-14] MEDS: HEPARIN SODIUM - SQ 10,000 UNITS/ML VIAL SQ SCH ×3 (05:16→21:03)
[2016-07-14] MEDS: PCA - TOTAL MG MORPHINE DELIVERED PER SHIFT SCH ×3 (05:18→22:00)
[2016-07-14] MEDS: INSULIN ASPART SUPPLEMENTAL SCALE SQ SCH ×4 (05:19→21:00)
[2016-07-14 05:23] LABS: BICARBONATE 24.4 MEQ/L (21.0-32.0); MAGNESIUM 2.1 MG/DL (1.5-2.5); POTASSIUM 3.7 MEQ/L (3.5-5.1)
[2016-07-14 08:00] VITALS: BP 148/71; PULSE 53; RESP 17; TEMP 96.9; O2SAT 98
--- NOTE | 2016-07-14 08:25 | HHI.FPPN ---
Subjective Remarks Patient seen and examined this morning. Afebrile vital signs stable. He reports that his pain is well-controlled. He says that he is eating okay but not quite a lot. He would like to try the ensure shakes with his meals. He is wanting to get out of the hospital since he can and get his rehabilitation going. He is in good spirits at this time. Is looking forward to getting out of the hospital as soon as he can. Endorses: Mild pain in his right leg Denies: Fever, chills, nausea, vomiting, shortness of breath, chest pain, headache, abdominal pain, calf pain (Avila Torres MD R2) Objective Vitals Vital Signs Date Time Temp Pulse Resp B/P Pulse Ox O2 Delivery O2 Flow Rate FiO2 07/14/16 05:18 16 07/14/16 00:00 96.0 63 17 129/60 100 07/13/16 22:00 17 07/13/16 20:00 96.1 59 17 137/63 100 07/13/16 16:00 95.4 51 16 133/62 99 07/13/16 14:00 12 07/13/16 12:00 95.7 57 16 124/59 99 07/13/16 10:14 99 07/13/16 09:30 95.5 62 16 135/72 98 I/O 07/13/16 07/13/16 07/13/16 07/14/16 07/14/16 07/14/16 07:00 15:00 23:00 07:00 15:00 23:00 Intake Total 1220 ml 360 ml 865 ml 1229 ml Output Total 600 ml 850 ml 750 ml 1000 ml Balance 620 ml -490 ml 115 ml 229 ml Intake Oral 240 ml 360 ml 240 ml 240 ml IV Total 980 ml 625 ml 989 ml Output Urine Total 600 ml 850 ml 750 ml 1000 ml # Bowel Movements 0 0 (Avila Torres MD R2) Result Diagram: 07/14/16 0447 07/14/16446 Imaging Last Impressions Tibia/Fibula X-Ray 07/11/16 0000 Signed Impressions: Service Date/Time: June 20:04 - CONCLUSION: Subcutaneous air that extends to the ankle mortise. Noe Salcedo MD FACR Foot X-Ray 07/11/16 0000 Signed Impressions: Service Date/Time: June 20:06 - CONCLUSION: Subcutaneous air as described above. Noe Salcedo MD FACR Chest X-Ray 07/11/16 0000 Signed Impressions: Service Date/Time: June 19:11 - CONCLUSION: Negative chest. Noe Salcedo MD FACR Objective Remarks O. CONSTITUTIONAL/GEN: normally nourished, somewhat cachectic shoulders, in NAD. EYES: conjunctiva normal, PERRLA, EOMI. LUNGS: CTAB A-P, respiratory effort is normal. CARDIOVASCULAR: RRR, NO MRG GI/ABD: soft without masses, without organomegaly. NEURO: No focal deficits. SKIN: color normal, no visible rashes noted. EXT: R BKA wrapped and elevated in bed PSYCH/MENTAL STATUS: Alert and oriented x 3. Procedures Status post BKA on 07/12/16 Medications and IVs Current Medications Medications (Trade) Dose Ordered Sig/Iesha Route Start Time Stop Time Status Last Admin (NS 1000 ml Inj) 1,000 ml @ 100 mls/hr Q10H IV 07/11/16 22:24 07/14/16 02:14 (NS Flush) 2 ml UNSCH PRN IV FLUSH 07/11/16 22:30 (NS Flush) 2 ml BID IV FLUSH 07/12/16 09:00 (Tylenol) 650 mg Q4H PRN PO 07/11/16 22:30 07/12/16 00:44 (Zofran Inj) 4 mg Q6H PRN IVP 07/11/16 22:30 (D50w (Vial) Inj) 50 ml UNSCH PRN IV 07/11/16 22:45 (Glucagon Inj) 1 mg UNSCH PRN OTHER 07/11/16 22:45 (Norvasc) 10 mg DAILY PO 07/12/16 09:00 07/13/16 08:17 (Catapres) 0.1 mg DAILY PO 07/12/16 09:00 07/12/16 08:45 (Lopressor) 50 mg BID PO 07/12/16 09:00 07/13/16 21:26 (Pravachol) 20 mg DAILY PO 07/12/16 09:00 07/13/16 08:18 (Prinivil) 40 mg DAILY PO 07/12/16 09:00 07/13/16 08:17 (Morphine Inj) 2 mg Q3H PRN IV 07/11/16 22:45 (Morphine Inj) 4 mg Q3H PRN IV 07/11/16 22:45 07/12/16 08:44 (Morphine Inj) 4 mg Q3H PRN IV 07/11/16 22:45 Naloxone HCl 0.4 mg 0.4 mg UNSCH PRN IV 07/11/16 22:45 Pharmacy Profile Note 0 ml @ 0 mls/hr UNSCH OTHER 07/11/16 22:45 (Cleocin Inj/NS Inj) 104 ml @ 208 mls/hr Q8H IV 07/12/16 00:00 07/14/16 02:16 Senna/Docusate Sodium 1 tab 1 tab BID PRN PO 07/11/16 23:00 (Zosyn 2.25 Gm Premix) 50 ml @ 100 mls/hr Q6H IV 07/12/16 02:00 07/14/16 04:16 (Vasotec Inj) 1.25 mg Q6H PRN IV 07/11/16 23:15 (Benadryl) 25 mg Q6H PRN PO 07/12/16 11:00 (Morphine 1 Mg/ ml FIRST AID OFFICER) 30 mg UNSCH IV 07/12/16 11:00 07/15/16 10:59 07/12/16 11:45 FIRST AID OFFICER Dosage Infused (Pha) 1 Q8HR .XX 07/12/16 14:00 07/14/16 05:18 (Levemir Inj) 5 units BID SQ 07/13/16 09:00 07/13/16 21:00 (Heparin Inj) 5,000 units Q8HR SQ 07/13/16 14:00 07/14/16 05:16 Miscellaneous Information SPECIFIC LAB TO BE DRAWN: DATE TO... ONCE ONCE .XX 07/14/16 20:45 07/14/16 20:46 (Avila Torres MD R2) A/P Assessment and Plan 71 y/o -[place] male with history of HTN, DM presents with left foot pain, found to have necrotizing fasciitis. Patient was admitted for antibiotics and orthopedic consultation for management. 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 Currently on vancomycin, Zosyn, and clindamycin IV. Wound culture growing gram- negative rods. Sensitivity pending. We'll adjust antibiotic regimen accordingly. Discussed with Dr. Fishman Discharge Planning Plan for discharge to rehabilitation for physical therapy. Possibly in the next 1-2 days. (Avila Torres MD R2) Attending Attestation Case reviewed and discussed with the resident team. Agree with plan of care as discussed with me and documented in the resident note. (Rodrigo Fishman MD) Problem List: (1) Necrotizing fasciitis Status: Resolved Plan: Pt with 2 month history of right foot pain. Unsure of inciting mechanism. Pt's history positive for diabetes, poorly controlled on admission. Xrays performed in ED, consistent with necrotizing fasciitis. Crepitus on exam. Foot xray: Extensive air seen in subcutaneous tissues of the foot extending to the level of the ankle mortise consistent with necrotizing fasciitis. ED physician discussed case with Ortho who evaluated pt. right BKA was performed on 07/12 -Orthopedic surgery on board -Continue Vancomycin for MRSA coverage; pharmacy consulted -Continue Zosyn 3.375g q6H, renally dosed -Continue Clindamycin 600mg IV q8H for its antitoxin effects -Blood cultures show no growth in one day -Wound cultures growing gram-negative rods, sensitivity pending -Morphine pump IV PRN pain control (2) S/P below knee amputation Status: Acute Plan: Right BKA performed on 07/12 PT consulted to assist with activity and post-discharge equipment needs -Case management consulted to assist with disposition needs to rehabilitation per physical therapy (3) Diabetes Status: Chronic Plan: History of chronic diabetes. Pt states his home BG runs around 160s. Elevated to 386 on admission. Pt on metformin and glimepiride at home. May benefit from insulin upon discharge at f/u with PCP -Hold home oral meds -Accuchecks at bedside -Levemir 10 units twice a day -Low-dose sliding scale insulin (4) REBECCA (acute kidney injury) Status: Resolved Plan: BUN 69, Cr 2.45 on admission; BUN/Cr 28, consistent with prerenal etiology. Previous baseline of 1.4 at last admission, after trending down from 2.38. Likely component of diabetes and HTN. Does see kidney doctor. Received 1L bolus in ED -Continue normal saline at 100 mls/hr -Daily BMPs (5) HTN (hypertension) Status: Chronic Plan: History of hypertension Continue home meds -Amlodipine 10mg daily -Clonidine 0.1mg daily -Metoprolol 50mg BID -Lisinopril 40mg daily -Will hold blood pressure medications based on patient's current blood pressure and heart rates monitored with every 4 vital signs (6) FEN Status: Acute Plan: Fluids: NS @ 100mls/hr due to renal insufficiency, creatinine is currently trending down but is still elevated Electrolytes: mildly elevated Na at 149, Cl elevated to 119. 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
[2016-07-14] MEDS: METOPROLOL TARTRATE 50 MG TAB PO SCH ×2 (08:48→21:03)
[2016-07-14] MEDS: cloNIDine HCL 0.1 MG TAB PO SCH (08:48)
[2016-07-14] MEDS: PRAVASTATIN SOD 20 MG TAB PO SCH (08:49)
[2016-07-14] MEDS: LISINOPRIL 20 MG TAB PO SCH (08:49)
[2016-07-14] MEDS: SODIUM CHLORIDE 0.9% FLUSH 10 ML FLUSH IV FLUSH SCH ×2 (08:49→21:00)
[2016-07-14] MEDS: INSULIN DETEMIR 100 UNITS/ML VIAL SQ SCH ×2 (10:14→21:07)
--- NOTE | 2016-07-14 11:08 | PD.ORT.PN ---
Subjective Post Op Day #: 2 Subjective Remarks pain tolerable Objective Vitals Vital Signs Date Time Temp Pulse Resp B/P Pulse Ox O2 Delivery O2 Flow Rate FiO2 07/14/16 08:00 96.9 53 17 148/71 98 07/14/16 05:18 16 07/14/16 00:00 96.0 63 17 129/60 100 07/13/16 22:00 17 07/13/16 20:00 96.1 59 17 137/63 100 07/13/16 16:00 95.4 51 16 133/62 99 07/13/16 14:00 12 07/13/16 12:00 95.7 57 16 124/59 99 I/O 07/13/16 07/13/16 07/13/16 07/14/16 07/14/16 07/14/16 07:00 15:00 23:00 07:00 15:00 23:00 Intake Total 1220 ml 360 ml 865 ml 1229 ml 120 ml Output Total 600 ml 850 ml 750 ml 1000 ml Balance 620 ml -490 ml 115 ml 229 ml 120 ml Intake Oral 240 ml 360 ml 240 ml 240 ml 120 ml IV Total 980 ml 625 ml 989 ml Output Urine Total 600 ml 850 ml 750 ml 1000 ml # Bowel Movements 0 0 Result Diagram: 07/14/1644607/14/16446 Objective Remarks in bed, nad dressing c/c/i thigh soft Assessment & Plan Ortho Post Op Day #: 2 Problem List: Assessment and Plan s/p R BKA POD#[address] Frederick pain control drew GOMEZ med management ortho stable Herb Dixon July 14, 2016 11:07
[2016-07-14 12:00] VITALS: BP 151/70; PULSE 61; RESP 19; TEMP 96.9; O2SAT 98
[2016-07-14 16:00] VITALS: BP 148/74; PULSE 62; RESP 12; TEMP 96; O2SAT 100
[2016-07-14 20:00] VITALS: BP 146/67; PULSE 64; RESP 17; TEMP 95.7; O2SAT 98
[2016-07-14] MEDS ORDERED: PHARMACY ORDERED LAB ONE (20:45)
[2016-07-14] MEDS ORDERED: VANCOMYCIN 1,000 MG/NS 250 ML IV SCH ×2 (21:00)
[2016-07-15] VITALS (7 sets, daily range): BP systolic 118–153; BP diastolic 60–71; PULSE 58–64; RESP 16–17; TEMP 95.8–98.1; O2SAT 96–100
[2016-07-15] MEDS: CLINDAMYCIN INJ 600 MG in SODIUM CHLORIDE 0.9% INJ 100 ML IV SCH ×4 (00:12→23:59)
[2016-07-15] MEDS: PIPERACIL-TAZO 2.25 GM PREMIX 50 ML IV SCH ×4 (02:16→19:56)
[2016-07-15] MEDS: SODIUM CHLOR 0.9% 1000 ML INJ 1,000 ML IV SCH (05:54)
[2016-07-15] MEDS: HEPARIN SODIUM - SQ 10,000 UNITS/ML VIAL SQ SCH ×3 (05:54→22:10)
[2016-07-15 05:57] LABS: HEMATOCRIT 29.8 % (39.0-51.0); MEAN CELL VOLUME 83.4 FL (80.0-100.0); MEAN CORPUSCULAR HEMOGLOBIN 27.2 PG (27.0-34.0); MEAN CORPUSCULAR HGB CONC 32.7 % (32.0-36.0); PLATELET COUNT 290 TH/MM3 (150-450); RED BLOOD COUNT 3.57 MIL/MM3 (4.50-5.90); REVIEW FLAG FINAL; WHITE BLOOD COUNT 7.7 TH/MM3 (4.0-11.0)
[2016-07-15] MEDS: PCA - TOTAL MG MORPHINE DELIVERED PER SHIFT SCH (06:00)
[2016-07-15] MEDS: INSULIN ASPART SUPPLEMENTAL SCALE SQ SCH ×4 (06:01→20:04)
[2016-07-15 06:28] LABS: BICARBONATE 25.7 MEQ/L (21.0-32.0); POTASSIUM 3.8 MEQ/L (3.5-5.1)
--- NOTE | 2016-07-15 08:52 | HHI.FPPN ---
Subjective Remarks Patient seen and examined this morning. Temperature 97.5, pulse 60, respiratory 16, blood pressure 153/71, pulse ox 98 on room air. He reports that he is feeling well and that his pain is tolerable. He says that he is drinking his ensure shake and likes it. He wants to eat a sandwich today. He says he is willing to start transitioning off of the pain pump to by mouth medications so that he can be able to go to rehabilitation as soon as possible Endorses: Mild generalized weakness, mild pain in right BKA Denies: Fever, chills, nausea, vomiting, shortness of breath, chest pain, headache, abdominal pain, calf pain (Avila Torres MD R2) Objective Vitals Vital Signs Date Time Temp Pulse Resp B/P Pulse Ox O2 Delivery O2 Flow Rate FiO2 07/15/16 08:20 99 21 07/15/16 08:00 97.5 60 16 153/71 98 07/15/16 06:00 18 07/15/16 04:00 96.7 64 17 131/62 100 07/15/16 00:00 95.8 58 17 151/68 100 07/14/16 22:00 18 07/14/16 20:00 95.7 64 17 146/67 98 07/14/16 16:00 96.0 62 12 148/74 100 07/14/16 13:53 14 07/14/16 12:00 96.9 61 19 151/70 98 07/14/16 11:09 21 I/O 07/14/16 07/14/16 07/14/16 07/15/16 07/15/16 07/15/16 07:00 15:00 23:00 07:00 15:00 23:00 Intake Total 1229 ml 2120 ml 240 ml 240 ml Output Total 1000 ml 1100 ml 1400 ml 600 ml Balance 229 ml 1020 ml -1160 ml -360 ml Intake Oral 240 ml 2120 ml 240 ml 240 ml IV Total 989 ml Output Urine Total 1000 ml 1100 ml 1400 ml 600 ml # Bowel Movements 0 (Avila Torres MD R2) Result Diagram: 07/15/16 0536 07/15/16 0536 Imaging Last Impressions Tibia/Fibula X-Ray 07/11/16 0000 Signed Impressions: Service Date/Time: June 20:04 - CONCLUSION: Subcutaneous air that extends to the ankle mortise. Noe Salcedo MD FACR Foot X-Ray 07/11/16 0000 Signed Impressions: Service Date/Time: June 20:06 - CONCLUSION: Subcutaneous air as described above. Noe Salcedo MD FACR Chest X-Ray 07/11/16 0000 Signed Impressions: Service Date/Time: June 19:11 - CONCLUSION: Negative chest. Noe Salcedo MD FACR Objective Remarks O. CONSTITUTIONAL/GEN: normally nourished, somewhat cachectic shoulders, in NAD. EYES: conjunctiva normal, PERRLA, EOMI. LUNGS: CTAB A-P, respiratory effort is normal. CARDIOVASCULAR: RRR, NO MRG GI/ABD: soft without masses, without organomegaly. NEURO: No focal deficits. SKIN: color normal, no visible rashes noted. EXT: R BKA wrapped and elevated in bed PSYCH/MENTAL STATUS: Alert and oriented x 3. Procedures Status post BKA on 07/12/16 Medications and IVs Current Medications Medications (Trade) Dose Ordered Sig/Iesha Route Start Time Stop Time Status Last Admin (NS 1000 ml Inj) 1,000 ml @ 100 mls/hr Q10H IV 07/11/16 22:24 07/15/16 05:54 (NS Flush) 2 ml UNSCH PRN IV FLUSH 07/11/16 22:30 (NS Flush) 2 ml BID IV FLUSH 07/12/16 09:00 (Tylenol) 650 mg Q4H PRN PO 07/11/16 22:30 07/12/16 00:44 (Zofran Inj) 4 mg Q6H PRN IVP 07/11/16 22:30 (D50w (Vial) Inj) 50 ml UNSCH PRN IV 07/11/16 22:45 (Glucagon Inj) 1 mg UNSCH PRN OTHER 07/11/16 22:45 (Norvasc) 10 mg DAILY PO 07/12/16 09:00 07/14/16 08:49 (Catapres) 0.1 mg DAILY PO 07/12/16 09:00 07/12/16 08:45 (Lopressor) 50 mg BID PO 07/12/16 09:00 07/14/16 21:03 (Pravachol) 20 mg DAILY PO 07/12/16 09:00 07/14/16 08:49 (Prinivil) 40 mg DAILY PO 07/12/16 09:00 07/14/16 08:49 (Morphine Inj) 2 mg Q3H PRN IV 07/11/16 22:45 (Morphine Inj) 4 mg Q3H PRN IV 07/11/16 22:45 07/12/16 08:44 (Morphine Inj) 4 mg Q3H PRN IV 07/11/16 22:45 Naloxone HCl 0.4 mg 0.4 mg UNSCH PRN IV 07/11/16 22:45 Pharmacy Profile Note 0 ml @ 0 mls/hr UNSCH OTHER 07/11/16 22:45 (Cleocin Inj/NS Inj) 104 ml @ 208 mls/hr Q8H IV 07/12/16 00:00 07/15/16 00:12 Senna/Docusate Sodium 1 tab 1 tab BID PRN PO 07/11/16 23:00 (Zosyn 2.25 Gm Premix) 50 ml @ 100 mls/hr Q6H IV 07/12/16 02:00 07/15/16 02:16 (Vasotec Inj) 1.25 mg Q6H PRN IV 07/11/16 23:15 (Benadryl) 25 mg Q6H PRN PO 07/12/16 11:00 (Morphine 1 Mg/ ml FOURCHETTE SEWER) 30 mg UNSCH IV 07/12/16 11:00 07/15/16 10:59 07/12/16 11:45 FOURCHETTE SEWER Dosage Infused (Pha) 1 Q8HR .XX 07/12/16 14:00 07/15/16 06:00 (Heparin Inj) 5,000 units Q8HR SQ 07/13/16 14:00 07/15/16 05:54 Insulin Detemir 10 units 10 units BID SQ 07/14/16 09:00 07/14/16 21:07 (Vancomycin Inj/ NS 250 ml Inj) 250 ml @ 250 mls/hr Q24H IV 07/14/16 21:00 07/14/16 21:07 (Avila Torres MD R2) A/P Assessment and Plan 71 y/o -[place] male with history of HTN, DM presents with left foot pain, found to have necrotizing fasciitis. Patient was admitted for antibiotics and orthopedic consultation for management. 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 Currently on vancomycin, Zosyn, and clindamycin IV. Wound culture growing gram- negative rods. Sensitivity pending. We'll adjust antibiotic regimen accordingly. Discussed with Dr. Fishman Discharge Planning Plan for discharge to rehabilitation for physical therapy. Possibly in the next 2-3 days. (Avila Torres MD R2) Attending Attestation Patient seen and examined. Case reviewed and discussed with the resident team. Agree with plan of care as discussed with me and documented in the resident note. (Rodrigo Fishman MD) Problem List: (1) Necrotizing fasciitis Status: Resolved Plan: Pt with 2 month history of right foot pain. Unsure of inciting mechanism. Pt's history positive for diabetes, poorly controlled on admission. Xrays performed in ED, consistent with necrotizing fasciitis. Crepitus on exam. Foot xray: Extensive air seen in subcutaneous tissues of the foot extending to the level of the ankle mortise consistent with necrotizing fasciitis. ED physician discussed case with Ortho who evaluated pt. right BKA was performed on 07/12 -Orthopedic surgery on board -Continue Vancomycin for MRSA coverage; pharmacy consulted -Continue Zosyn 3.375g q6H, renally dosed -Continue Clindamycin 600mg IV q8H for its antitoxin effects -Blood cultures show no growth in 3 days -Wound cultures growing gram-negative rods, Staphylococcus aureus, Proteus penneri -Morphine pump IV PRN pain control, anticipate transition to PO pain control (2) S/P below knee amputation Status: Acute Plan: Right BKA performed on 07/12 PT consulted to assist with activity and post-discharge equipment needs -Case management consulted to assist with disposition needs to rehabilitation per physical therapy (3) Diabetes Status: Chronic Plan: History of chronic diabetes. Pt states his home BG runs around 160s. Elevated to 386 on admission. Pt on metformin and glimepiride at home. May benefit from insulin upon discharge at f/u with PCP. Blood glucose has been 101 , 105, 94 for most recent results. -Hold home oral meds -Accuchecks at bedside -Levemir 5 units twice a day -Low-dose sliding scale insulin (4) REBECCA (acute kidney injury) Status: Resolved Plan: Resolving current creatinine is 1.3, and GFR is 66 -Due to poor oral and food intake, starting D5-1/2 NS -Daily BMPs (5) HTN (hypertension) Status: Chronic Plan: History of hypertension Continue home meds -Amlodipine 10mg daily -Clonidine 0.1mg daily -Metoprolol 50mg BID -Lisinopril 40mg daily -Will hold blood pressure medications based on patient's current blood pressure and heart rates monitored with every 4 vital signs (6) FEN Status: Acute Plan: Fluids:Poor PO and oral hydration, starting D5-1/2 normal saline Electrolytes: mildly elevated Na at 147, Cl elevated to 115. 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
[2016-07-15] MEDS: SODIUM CHLORIDE 0.9% FLUSH 10 ML FLUSH IV FLUSH SCH ×2 (09:00→19:56)
[2016-07-15] MEDS ORDERED: ACETAMINOPHEN/HYDROcodone 325 MG/10 MG TAB PO PRN (09:30)
[2016-07-15] MEDS ORDERED: MORPHINE SULFATE 4 MG/ML INJ IV PUSH PRN (09:30)
[2016-07-15] MEDS ORDERED: ACETAMINOPHEN/HYDROcodone 325 MG/5 MG TAB PO PRN (09:30)
[2016-07-15] MEDS: LISINOPRIL 20 MG TAB PO SCH (09:54)
[2016-07-15] MEDS: cloNIDine HCL 0.1 MG TAB PO SCH (09:54)
[2016-07-15] MEDS: PRAVASTATIN SOD 20 MG TAB PO SCH (09:55)
[2016-07-15] MEDS: METOPROLOL TARTRATE 50 MG TAB PO SCH ×2 (09:55→19:56)
[2016-07-15] MEDS: DEXT 5%-NACL 0.45% 1000 ML INJ 1,000 ML IV SCH ×2 (10:21→22:10)
[2016-07-15] MEDS: INSULIN DETEMIR 100 UNITS/ML VIAL SQ SCH (20:02)
[2016-07-16 00:02] VITALS: BP 147/68; PULSE 60; RESP 18; TEMP 96.7; O2SAT 96
[2016-07-16] MEDS: PIPERACIL-TAZO 2.25 GM PREMIX 50 ML IV SCH ×2 (01:54→09:00)
[2016-07-16 04:00] VITALS: BP 151/82; PULSE 76; RESP 17; TEMP 96.2; O2SAT 97
[2016-07-16] MEDS: HEPARIN SODIUM - SQ 10,000 UNITS/ML VIAL SQ SCH ×3 (05:13→21:39)
[2016-07-16] MEDS: INSULIN ASPART SUPPLEMENTAL SCALE SQ SCH ×4 (05:18→19:43)
--- NOTE | 2016-07-16 07:50 | PD.ORT.PN ---
Subjective Post Op Day #: 4 Subjective Remarks Patient comfortable. Pain controlled. Denies fever, chills or sweat. Objective Vitals Vital Signs Date Time Temp Pulse Resp B/P Pulse Ox O2 Delivery O2 Flow Rate FiO2 07/16/16 04:00 96.2 76 17 151/82 97 07/16/16 00:02 96.7 60 18 147/68 96 07/15/16 20:00 96.3 58 17 148/66 96 07/15/16 16:00 98.0 62 16 127/70 98 07/15/16 12:00 98.1 60 16 118/60 99 07/15/16 08:20 99 21 07/15/16 08:00 97.5 60 16 153/71 98 I/O 07/15/16 07/15/16 07/15/16 07/16/16 07/16/16 07/16/16 07:00 15:00 23:00 07:00 15:00 23:00 Intake Total 240 ml 400 ml 941 ml 1335 ml Output Total 600 ml 500 ml 1200 ml Balance -360 ml 400 ml 441 ml 135 ml Intake Oral 240 ml 400 ml 480 ml 480 ml IV Total 461 ml 855 ml Output Urine Total 600 ml 500 ml 1200 ml # Bowel Movements 0 Result Diagram: 07/15/16 0536 07/15/16 0536 Objective Remarks RLE: incision well approximated sutures in place no signs of infection or drainage noted new dressing applied Assessment & Plan Ortho Post Op Day #: 4 Problem List: Assessment and Plan s/p R BKA POD#4 initiate daily dressing changes pain control aarom RLE med management orthopedically stable for discharge. will need medical clearance. F/U in [address] Frederick or BRIANA in office Chito Nichols July 16, 2016 07:50
[2016-07-16 08:00] VITALS: BP 144/68; PULSE 56; RESP 16; TEMP 96.8; O2SAT 99
[2016-07-16] MEDS: SODIUM CHLORIDE 0.9% FLUSH 10 ML FLUSH IV FLUSH SCH ×2 (09:00→19:31)
[2016-07-16] MEDS: METOPROLOL TARTRATE 50 MG TAB PO SCH ×2 (09:00→19:31)
[2016-07-16] MEDS: CLINDAMYCIN INJ 600 MG in SODIUM CHLORIDE 0.9% INJ 100 ML IV SCH ×3 (09:00→23:38)
[2016-07-16] MEDS: cloNIDine HCL 0.1 MG TAB PO SCH (09:00)
[2016-07-16] MEDS: PRAVASTATIN SOD 20 MG TAB PO SCH (09:02)
[2016-07-16] MEDS: DEXT 5%-NACL 0.45% 1000 ML INJ 1,000 ML IV SCH (09:02)
[2016-07-16] MEDS: LISINOPRIL 20 MG TAB PO SCH (09:02)
[2016-07-16] MEDS: INSULIN DETEMIR 100 UNITS/ML VIAL SQ SCH ×2 (09:04→19:42)
--- NOTE | 2016-07-16 11:14 | HHI.FPPN ---
Subjective Remarks Patient is doing well this morning. He denied any complaints including fever, chills, SOB, CP, N/V/D. Pain is well controlled. He is looking forward to starting Rehab but was wondering if he could go to [facility] instead of [facility] since it may be closer for his to get to. I spoke with the pt's on the phone and she was okay with him going to [facility]. (Mabel Baron MD R1) Objective Vitals Vital Signs Date Time Temp Pulse Resp B/P Pulse Ox O2 Delivery O2 Flow Rate FiO2 07/16/16 08:00 96.8 56 16 144/68 99 07/16/16 04:00 96.2 76 17 151/82 97 07/16/16 00:02 96.7 60 18 147/68 96 07/15/16 20:00 96.3 58 17 148/66 96 07/15/16 16:00 98.0 62 16 127/70 98 07/15/16 12:00 98.1 60 16 118/60 99 I/O 07/15/16 07/15/16 07/15/16 07/16/16 07/16/16 07/16/16 07:00 15:00 23:00 07:00 15:00 23:00 Intake Total 240 ml 400 ml 941 ml 1335 ml Output Total 600 ml 500 ml 1200 ml Balance -360 ml 400 ml 441 ml 135 ml Intake Oral 240 ml 400 ml 480 ml 480 ml IV Total 461 ml 855 ml Output Urine Total 600 ml 500 ml 1200 ml # Bowel Movements 0 (Mabel Baron MD R1) Result Diagram: 07/15/16 0536 07/15/16 0536 Objective Remarks O. CONSTITUTIONAL/GEN: normally nourished, somewhat cachectic shoulders, in NAD. EYES: conjunctiva normal, PERRLA, EOMI. LUNGS: CTAB A-P, respiratory effort is normal. CARDIOVASCULAR: RRR, NO MRG GI/ABD: soft without masses, without organomegaly. NEURO: No focal deficits. SKIN: color normal, no visible rashes noted. EXT: R BKA wrapped and elevated in bed PSYCH/MENTAL STATUS: Alert and oriented x 3. Procedures Status post BKA on 07/12/16 (Mabel Baron MD R1) A/P Assessment and Plan 71 y/o -[place] male with history of HTN, DM presented with left foot pain and was found to have necrotizing fasciitis. Patient was admitted for antibiotics and orthopedic consultation for management. 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 He was started on vancomycin, Zosyn, and clindamycin IV. Wound culture grew Proteus penneri, Staph aureus, and a non-wrapper opener species all sensitive to Bactrim. Patient did very well during his hospital stay and clinically improved. He was discharged to [place] [facility] for acute rehabilitation with a 3-day course of Bactrim DS to complete 7 days of antibiotic treatment. In addition, all oral glucose medications were discontinued and the patient was started on 10 units of long-acting Levemir insulin BID. Discussed with Dr. Fishman Discharge Planning Plan for discharge to rehabilitation for physical therapy. Possibly in the next 2-3 days. (Mabel Baron MD R1) Attending Attestation Patient seen and examined. Case reviewed and discussed with the resident team. Agree with plan of care as discussed with me and documented in the resident note. (Rodrigo Fishman MD) Problem List: (1) Necrotizing fasciitis Status: Resolved Plan: Pt with a 2 month history of right foot pain. Unsure of inciting mechanism. Pt's history positive for diabetes, poorly controlled on admission. Xrays performed in ED, consistent with necrotizing fasciitis. Crepitus on exam. Foot xray: Extensive air seen in subcutaneous tissues of the foot extending to the level of the ankle mortise consistent with necrotizing fasciitis. ED physician discussed case with Ortho who evaluated pt. right BKA was performed on 07/12 -Orthopedic surgery on board -Stop Clindamycin and zosyn today. Start oral Bactrim -Blood cultures show no growth in 3 days -Wound cultures grew Proteus penneri, Staphylococcus aureus, and non-wrapper opener species -On oral pain medication - per pt, pain is well-controlled (2) S/P below knee amputation Status: Acute Plan: Right BKA performed on 07/12 PT consulted to assist with activity and post-discharge equipment needs -Case management consulted to assist with disposition needs to rehabilitation per physical therapy (3) Diabetes Status: Chronic Plan: History of chronic diabetes. Pt states his home BG runs around 160s. Elevated to 386 on admission. Pt on metformin and glimepiride at home. May benefit from insulin upon discharge at f/u with PCP. Blood glucose has been 101 , 105, 94 for most recent results. 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
[2016-07-16] MEDS ORDERED: LEVEMIR SQ ×2 (12:05→14:08)
--- NOTE | 2016-07-16 12:06 | HHI.DCPOC ---
Discharge Care Plan Diagnosis: (1) Necrotizing fasciitis (2) Diabetes (3) HTN (hypertension) (4) REBECCA (acute kidney injury) (5) Hx of right BKA Goals to Promote Your Health * To prevent worsening of your condition and complications * To maintain your health at the optimal level Directions to Meet Your Goals Take your medications as prescribed Follow your dietary instruction Follow activity as directed Keep your appointments as scheduled Take your immunizations and boosters as scheduled If your symptoms worsen call your PCP, if no PCP go to Urgent Care Center or Emergency Room Smoking is Dangerous to Your Health. Avoid second hand smoke Call the 24-hour hour crisis hotline for domestic abuse at Mabel Baron MD R1 July 16, 2016 12:06
[2016-07-16] MEDS: PIPERACIL-TAZO 3.375 GM PREMIX 50 ML IV SCH ×2 (13:46→19:31)
[2016-07-16] MEDS ORDERED: BACT800T5 PO (14:11)
--- NOTE | 2016-07-16 15:24 | HHI.DS ---
Discharge Summary Admission Date July 11, 2016 at 21:40 Discharge Date: July 16, 2016 Admitting Diagnosis R Foot Necrotizing Fasciitis; Hyperglycemia (1) Necrotizing fasciitis Diagnosis: Principal (2) S/P below knee amputation Diagnosis: Principal (3) Diabetes Diagnosis: Principal (4) HTN (hypertension) Procedures Status post BKA on 07/12/16 Brief History 71 y/o -French male with history of HTN, DM, rectal cancer presents with right foot pain. Of note, pt is a poor historian, but states he "stubbed" his foot about two months ago, since then it has been sore. Pt says the pain has waxed and waned since then. He would apply some cream on it, which would help some. States he would wash his foot as needed. Has noticed some pus and drainage, but would just wash it off. Denies any numbness/tingling in his feet. Denies any trauma, cuts, ulcers on the foot previously. No history of wounds. Has not taken any pain medicaitons. Denies any fever/chills. No chest pain, SOB , abdominal pain. Has noticed a foul smell. Denies any history of MRSA infection. Doesn't see a wet primer powder blender. Was seen in Dr. Marroquin's office yesterday , who recommended supportive treatment. Does state it is painful to walk, but walks around ok. History of chronic diabetes, was on insulin in the past, but not currently. Takes several oral medications. Checks his BG every morning, states it usually runs around 160. CBC/BMP: 07/15/16 0536 07/15/16 0536 Significant Findings Laboratory Tests Test 07/13/16 07/14/16 07/14/16 07/15/16 18:34 04:47 20:50 05:36 Sodium Level 148 MEQ/L 149 MEQ/L 147 MEQ/L (136-145) (136-145) (136-145) Chloride Level 117 MEQ/L 119 MEQ/L 115 MEQ/L (98-107) (98-107) (98-107) Blood Urea Nitrogen 29 MG/DL (7-18) 23 MG/DL (7-18) Creatinine 1.58 MG/DL 1.42 MG/DL (0.60-1.30) (0.60-1.30) Estimat Glomerular Filtration 53 ML/MIN (>89) 59 ML/MIN (>89) 66 ML/MIN (>89) Rate Random Glucose 134 MG/DL (74-106) White Blood Count 15.5 TH/MM3 (4.0-11.0) Red Blood Count 3.22 MIL/MM3 3.57 MIL/MM3 (4.50-5.90) (4.50-5.90) Hemoglobin 8.8 GM/DL 9.7 GM/DL (13.0-17.0) (13.0-17.0) Hematocrit 26.9 % 29.8 % (39.0-51.0) (39.0-51.0) Neutrophils (%) (Auto) 88.2 % (16.0-70.0) Lymphocytes (%) (Auto) 8.9 % (9.0-44.0) Neutrophils # (Auto) 13.7 TH/MM3 (1.8-7.7) Phosphorus Level 2.1 MG/DL (2.5-4.9) Vancomycin Level Trough 13.3 MCG/ML (5.0-10.0) PE at Discharge O. CONSTITUTIONAL/GEN: normally nourished, somewhat cachectic shoulders, in NAD. EYES: conjunctiva normal, PERRLA, EOMI. LUNGS: CTAB A-P, respiratory effort is normal. CARDIOVASCULAR: RRR, NO MRG GI/ABD: soft without masses, without organomegaly. NEURO: No focal deficits. SKIN: color normal, no visible rashes noted. EXT: R BKA wrapped and elevated in bed PSYCH/MENTAL STATUS: Alert and oriented x 3. Hospital Course 71 y/o -French male with history of HTN, DM presented with left foot pain and was found to have necrotizing fasciitis. Patient was admitted for antibiotics and orthopedic consultation for management. 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 He was started on vancomycin, Zosyn, and clindamycin IV. Wound culture grew Proteus penneri, Staph aureus, and a non-deputy sheriff generalist/bailiff species all sensitive to Bactrim. Patient did very well during his hospital stay and clinically improved. He was discharged to [facility] for acute rehabilitation with a 3-day course of Bactrim DS to complete 7 days of antibiotic treatment. In addition, all oral glucose medications were discontinued and the patient was started on 10 units of long-acting Levemir insulin BID. Pt Condition on Discharge: Stable Discharge Disposition: Rehab Inpatient Discharge Instructions DIET: Follow Instructions for: Diabetic Diet Activities you can perform: Weight Bearing as Rosalina, Non Weight Bearing Follow up Referrals: Orthopedics - 4 Weeks @ [facility] with Jean Marie Frederick MD PCP Follow-up - 1 Week New Medications: Sulfamethoxazole-Trimethoprim (Bactrim DS) 800-160 Mg Tab 1 TAB PO BID Infection #6 Ref 0 TAB Insulin Detemir Inj (Levemir Inj) 1,000 unit/ 10 ML Vial 10 UNITS SQ Q12HR #10 ML Continued Medications: Amlodipine (Amlodipine) 10 Mg Tab 10 MG PO DAILY Blood Pressure Management #30 Ref 0 TAB Clonidine (Clonidine) 0.1 Mg Tab 0.1 MG PO DAILY Blood Pressure Management #60 Ref 0 TAB Lisinopril (Lisinopril) 40 Mg Tab 40 MG PO DAILY Blood Pressure Management #30 Ref 0 TAB Metoprolol Tartrate (Metoprolol Tartrate) 50 Mg Tab 50 MG PO BID #60 Ref 0 TAB Pravastatin (Pravastatin) 20 Mg Tab 20 MG PO DAILY Cholesterol Management #30 Ref 0 TAB Discontinued Medications: Glimepiride (Glimepiride) 2 Mg Tab 2 MG PO BIDAC Blood Sugar Management #60 Ref 0 TAB Metformin (Metformin) 500 Mg Tab 500 MG PO BIDPC With meals Blood Sugar Management #60 Ref 0 TAB Mabel Baron MD R1 July 16, 2016 15:24
[2016-07-16 16:00] VITALS: BP 125/74; PULSE 60; RESP 16; TEMP 97.8; O2SAT 99
[2016-07-16 20:00] VITALS: BP 155/68; PULSE 89; RESP 18; TEMP 97.8; O2SAT 98
[2016-07-17] VITALS: BP 129/62; PULSE 87; RESP 18; TEMP 97.7; O2SAT 98
[2016-07-17] MEDS: PIPERACIL-TAZO 3.375 GM PREMIX 50 ML IV SCH ×2 (02:26→09:10)
[2016-07-17] MEDS: HEPARIN SODIUM - SQ 10,000 UNITS/ML VIAL SQ SCH (05:05)
[2016-07-17] MEDS: INSULIN ASPART SUPPLEMENTAL SCALE SQ SCH ×2 (05:06→11:00)
[2016-07-17 08:00] VITALS: BP 144/68; PULSE 73; RESP 14; TEMP 98.1; O2SAT 97
[2016-07-17] MEDS: INSULIN DETEMIR 100 UNITS/ML VIAL SQ SCH (08:00)
--- NOTE | 2016-07-17 08:24 | HHI.FPPN ---
Subjective Remarks Patient seen and examined this morning. Afebrile vital signs stable. As of yet not documented but nurse reports blood pressure was low this morning. Currently holding blood pressure medications, will recheck later and provide patient with lisinopril. Plan is to discharge to [facility] today, and patient is looking forward to this. He feels that if he can get some rehabilitation strength back as well as increase his appetite. He denies any pain today. Endorses: None Denies: Fever, chills, nausea, vomiting, shortness of breath, chest pain, headache, abdominal pain, calf pain (Avila Torres MD R2) Objective Vitals Vital Signs Date Time Temp Pulse Resp B/P Pulse Ox O2 Delivery O2 Flow Rate FiO2 07/17/16 00:00 97.7 87 18 129/62 98 07/16/16 20:00 97.8 89 18 155/68 98 07/16/16 16:00 97.8 60 16 125/74 99 I/O 07/16/16 07/16/16 07/16/16 07/17/16 07/17/16 07/17/16 07:00 15:00 23:00 07:00 15:00 23:00 Intake Total 1335 ml 1178 ml 480 ml 430 ml 0 ml Output Total 1200 ml 975 ml 800 ml 800 ml Balance 135 ml 203 ml -320 ml -370 ml 0 ml Intake Oral 480 ml 720 ml 480 ml 430 ml IV Total 855 ml 458 ml 0 ml Output Urine Total 1200 ml 975 ml 800 ml 800 ml # Bowel Movements 0 0 1 (Avila Torres MD R2) Result Diagram: 07/15/1636 07/15/16 0536 Objective Remarks O. CONSTITUTIONAL/GEN: normally nourished, somewhat cachectic shoulders, in NAD. EYES: conjunctiva normal, PERRLA, EOMI. LUNGS: CTAB A-P, respiratory effort is normal. CARDIOVASCULAR: RRR, NO MRG GI/ABD: soft without masses, without organomegaly. NEURO: No focal deficits. SKIN: color normal, no visible rashes noted. EXT: R BKA wrapped and elevated in bed PSYCH/MENTAL STATUS: Alert and oriented x 3. Procedures Status post BKA on 07/12/16 (Avila Torres MD R2) A/P Assessment and Plan 71 y/o -Ugandan male with history of HTN, DM presented with left foot pain and was found to have necrotizing fasciitis. Patient was admitted for antibiotics and orthopedic consultation for management. 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 He was started on vancomycin, Zosyn, and clindamycin IV. Wound culture grew Proteus penneri, Staph aureus, and a non-global chief creative officer species all sensitive to Bactrim. Patient did very well during his hospital stay and clinically improved. He was discharged to [facility] for acute rehabilitation with a 3-day course of Bactrim DS to complete 7 days of antibiotic treatment. Discussed with Dr. Fishman Discharge Planning Plan for discharge to [facility] for physical therapy. Discharge yesterday but that was not available, anticipate discharge today. (Avila Torres MD R2) Attending Attestation Case reviewed and discussed with the resident team. Agree with plan of care as discussed with me and documented in the resident note. (Rodrigo Fishman MD) Problem List: (1) Necrotizing fasciitis Status: Resolved Plan: Pt with a 2 month history of right foot pain. Unsure of inciting mechanism. Pt's history positive for diabetes, poorly controlled on admission. Xrays performed in ED, consistent with necrotizing fasciitis. Crepitus on exam. Foot xray: Extensive air seen in subcutaneous tissues of the foot extending to the level of the ankle mortise consistent with necrotizing fasciitis. ED physician discussed case with Ortho who evaluated pt. right BKA was performed on 07/12 -Orthopedic surgery on board -Stop Clindamycin and zosyn today. Start oral Bactrim -Blood cultures show no growth in 3 days -Wound cultures grew Proteus penneri, Staphylococcus aureus, and non-global chief creative officer species -On oral pain medication - per pt, pain is well-controlled (2) S/P below knee amputation Status: Acute Plan: Right BKA performed on 07/12 PT consulted to assist with activity and post-discharge equipment needs -Case management consulted to assist with disposition needs to rehabilitation per physical therapy (3) Diabetes Status: Chronic Plan: History of chronic diabetes. Pt states his home BG runs around 160s. Elevated to 386 on admission. Pt on metformin and glimepiride at home. May benefit from insulin upon discharge at f/u with PCP. Blood glucose has been 101 , 105, 94 for most recent results. 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
[2016-07-17] MEDS: SODIUM CHLORIDE 0.9% FLUSH 10 ML FLUSH IV FLUSH SCH (09:00)
[2016-07-17] MEDS: METOPROLOL TARTRATE 50 MG TAB PO SCH (09:09)
[2016-07-17] MEDS: LISINOPRIL 20 MG TAB PO SCH (09:10)
[2016-07-17] MEDS: cloNIDine HCL 0.1 MG TAB PO SCH (09:10)
[2016-07-17] MEDS: PRAVASTATIN SOD 20 MG TAB PO SCH (09:10)
[2016-07-17] MEDS: CLINDAMYCIN INJ 600 MG in SODIUM CHLORIDE 0.9% INJ 100 ML IV SCH (09:10)
[2016-07-17 12:00] VITALS: BP 103/55; PULSE 57; RESP 14; TEMP 96.5; O2SAT 99
[2016-07-25] MEDS ORDERED: WHEEMIS3 (15:37)
[2016-07-25] MEDS ORDERED: [UNRECOGNIZED DRUG - SUPPLY] (15:37)
[2016-07-25] MEDS ORDERED: COMMODE 3-IN-11 MIS (15:37)
[2016-07-25] MEDS ORDERED: GETGO ROLLING W1 MI1 (15:37)
[2016-07-30] MEDS ORDERED: AMLO10TA2 PO (08:24)
[2016-07-30] MEDS ORDERED: PRAV20TA2 PO (08:24)
[2016-07-30] MEDS ORDERED: SENN1TAB PO (08:24)
[2016-07-30] MEDS ORDERED: CLON0.1T PO (08:24)
[2016-07-30] MEDS ORDERED: ACET1TAB86 PO (08:24)
[2016-07-30] MEDS ORDERED: LEVEMIR SQ (08:24)
[2016-07-30] MEDS ORDERED: FERR325T20 PO (08:24)
[2016-07-30] MEDS ORDERED: METO25TA3 PO (08:24)
== END 2016-07-17 12:44 | DRG 474 ==
LOC: NEPC 16:37 → NEDA 21:40 → N07B 07-12 00:22
PROVIDERS: ADMIT Family Medicine; ATTEND Family Medicine
PROC: 0Y6H0Z1 Detachment at Right Lower Leg, High, Open Approach (ICD-10-PCS; principal; 2016-07-12 09:41)
DX: M72.6 Necrotizing fasciitis (principal); A48.0 Gas gangrene; N17.9 Acute kidney failure, unspecified; E11.65 Type 2 diabetes mellitus with hyperglycemia; I10 Essential (primary) hypertension; R68.0 Hypothermia, not associated with low environmental temperature; B95.61 Methicillin susceptible Staphylococcus aureus infection as the cause of diseases classified elsewhere; B96.4 Proteus (mirabilis) (morganii) as the cause of diseases classified elsewhere; M19.90 Unspecified osteoarthritis, unspecified site; Z79.84 Long term (current) use of oral hypoglycemic drugs; Z85.048 Personal history of other malignant neoplasm of rectum, rectosigmoid junction, and anus; Z87.891 Personal history of nicotine dependence; Z90.49 Acquired absence of other specified parts of digestive tract; Z92.21 Personal history of antineoplastic chemotherapy
CPT/HCPCS: 71010; 73590; 73620; 80048; 80202; 81001; 82550; 82948; 83605; 83735; 84100; 85025; 85027; 85610; 85730; 86403; 87040; 87070; 87077; 87186; 87205; 88307; 88311; 93005; 94150; 96374; 96375; J0131; J1580; J1644; J1815; J2270; J2405; J2543; J2710; J3010; J3370; J7030; J7040; J7050

== ENCOUNTER 2016-08-28 17:23 | Inpatient (IN) | payer OTHER, MEDICARE ==
[~2016-08-28] VITALS: Ht 177.8 cm; Wt 57.1 kg
[~2016-08-28 17:23] MED LIST changes: -1-ME1LIQ PO; +ACET1TAB86 PO; +AMLO10TA2 PO; -CLON.1 PO; +CLON0.1T PO; +COMMODE 3-IN-11 MIS; +FERR325T20 PO; +GETGO ROLLING W1 MI1; -GLIM2TAB PO; -LANTUSP SQ; +LEVEMIR SQ; +METO25TA3 PO; -METO50TA PO; -PRAV20 PO; +PRAV20TA2 PO; +SENN1TAB PO; +WHEEMIS3; +[UNRECOGNIZED DRUG - SUPPLY]
[2016-08-28 17:26] VITALS: BP 183/84; PULSE 95; RESP 20; TEMP 98.6; O2SAT 97
[2016-08-28] MEDS ORDERED: METF500T PO (17:49)
[2016-08-28] MEDS ORDERED: HYDR-3516 PO (17:49)
[2016-08-28] MEDS ORDERED: LISI40TA PO (17:49)
--- NOTE | 2016-08-28 19:02 | PD ---
HPI Chief Complaint: Musculoskeletal Complaint Time Seen by Provider: 18:48 Travel History International Travel<30 days: No Contact w/Intl Traveler<30days: No Traveled to known affect area: No History of Present Illness HPI 71-year-old male with history of hypertension, diabetes, rectal cancer. This patient was admitted on July 11 for necrotizing fasciitis of the right foot. He underwent a right leg BKA. This was performed by orthopedist Dr. Frederick. He has been having wound care nurse come by his house every other day. He reports that over the past few days he's had worsening pain at the site of the amputation. He reports that the home health care nurse told him that it looked worse today and recommended coming here for further evaluation. He has had a foul smell emanating from the wound. He does report that 2 weeks ago he bumped his leg and this caused his wound dehisce. He has had no fevers or chills. Primary care physician Dr. Frederick. No other complaints. PFSH Past Medical History Arthritis: Yes Asthma: No Anxiety: No Depression: No Heart Rhythm Problems: No Cancer: Yes Cardiovascular Problems: No High Cholesterol: No Chemotherapy: Yes Chest Pain: No Congestive Heart Failure: No COPD: No Cerebrovascular Accident: No Diabetes: Yes Patient Takes Glucophage: Yes Diminished Hearing: No Endocrine: Yes Gastrointestinal Disorders: Yes (RECTAL CANCER) GERD: No Genitourinary: No Hepatitis: No Hiatal Hernia: No Hypertension: Yes Immune Disorder: No Implanted Vascular Access Dvce: Yes (PORT RIGHT CHEST) Kidney Stones: No Musculoskeletal: Yes (ARTHRITIS) Neurologic: Yes Psychiatric: No Reproductive: No Respiratory: No Migraines: No Radiation Therapy: Yes Renal Failure: No Seizures: No Sickle Cell Disease: No Sleep Apnea: No Thyroid Disease: No Ulcer: No Tetanus Vaccination: < 5 Years Influenza Vaccination: Yes Past Surgical History Abdominal Surgery: Yes (BOWEL RESECTION IN TO REMOVE CANCER) AICD: No Arteriovenous Shunt: No Cardiac Surgery: No Ear Surgery: No Endocrine Surgery: No Eye Surgery: No Genitourinary Surgery: No Gynecologic Surgery: No Insulin Pump: No Joint Replacement: No Oral Surgery: No Pacemaker: No Thoracic Surgery: No Other Surgery: Yes (RECTAL) Social History Alcohol Use: Yes (RARE) Tobacco Use: No Substance Use: No (PT DENIES) Allergies-Medications (Allergen,Severity, Reaction): Coded Allergies: No Known Allergies (Verified , 08/28/16) Reported Meds & Prescriptions Reported Meds & Active Scripts Active Levemir Inj (Insulin Detemir) 1,000 unit/ 10 ML Vial 10 Units SQ DAILY 30 Days Metoprolol Tartrate 25 Mg Tab 12.5 Mg PO BID 30 Days Ferosul (Ferrous Sulfate) 325 Mg Tablet 325 Mg PO DAILY 30 Days Clonidine (Clonidine HCl) 0.1 Mg Tab 0.1 Mg PO DAILY Pravastatin 20 Mg Tab 20 Mg PO DAILY Reported Hydrocodone-Acetaminophen 5-325 mg Tab 1 Tab PO Q6H PRN Lisinopril 40 Mg Tab 40 Mg PO DAILY Metformin (Metformin HCl) 500 Mg Tab 500 Mg PO BIDPC With meals Review of Systems Except as stated in HPI: all other systems reviewed are Neg Physical Exam Narrative GENERAL: Well-developed well-nourished male in no acute distress SKIN: Warm and dry. Examination of the right lower extremity reveals a right leg BKA. There is significant wound dehiscence. There is a foul smell emanating from the wound. The wound is somewhat erythematous and tender to palpation. Bone is visible. HEAD: Atraumatic. Normocephalic. EYES: Pupils equal and round. No scleral icterus. No injection or drainage. ENT: No nasal bleeding or discharge. Mucous membranes pink and moist. NECK: Trachea midline. No JVD. CARDIOVASCULAR: Regular rate and rhythm. No murmur appreciated. RESPIRATORY: No accessory muscle use. Clear to auscultation. Breath sounds equal bilaterally. GASTROINTESTINAL: Abdomen soft, non-tender, nondistended. Hepatic and splenic margins not palpable. MUSCULOSKELETAL: No obvious deformities. Skin as noted above. No obvious inguinal lymphadenopathy. NEUROLOGICAL: Awake and alert. No obvious cranial nerve deficits. Motor grossly within normal limits. Normal speech. PSYCHIATRIC: Appropriate mood and affect; insight and judgment normal. Data Data Last Documented VS Vital Signs Date Time Temp Pulse Resp B/P Pulse Ox O2 Delivery O2 Flow Rate FiO2 08/28/16 20:17 16 08/28/16 19:41 80 195/87 99 Room Air 08/28/16 17:26 98.6 Orders Femur (Ap & Lat/2vws) (08/28/16 ) Complete Blood Count With Diff (08/28/16 18:56) Comprehensive Metabolic Panel (08/28/16 18:56) Lactic Acid Sepsis Protocol (08/28/16 18:56) Blood Culture (08/28/16 18:56) Wound Culture And Gram Stain (08/28/16 18:56) Ecg Monitoring (08/28/16 18:56) Iv Access Insert/Monitor (08/28/16 18:56) Oximetry (08/28/16 18:56) Oxygen Administration (08/28/16 18:56) Westergren Sedimentation Rate (08/28/16 18:58) C-Reactive Protein (Crp) (08/28/16 18:58) Morphine Inj (Morphine Inj) (08/28/16 19:45) Levofloxacin 750 Mg Premix Inj (Levaquin (08/28/16 20:00) Consult Orthopedic (08/28/16 ) Vancomycin Inj (Vancomycin Inj) (08/28/16 20:30) Labs Laboratory Tests Test 08/28/16 19:13 White Blood Count 13.2 TH/MM3 Red Blood Count 4.31 MIL/MM3 Hemoglobin 12.0 GM/DL Hematocrit 36.3 % Mean Corpuscular Volume 84.3 FL Mean Corpuscular Hemoglobin 27.9 PG Mean Corpuscular Hemoglobin 33.1 % Concent Red Cell Distribution Width 15.2 % Platelet Count 209 TH/MM3 Mean Platelet Volume 9.1 FL Neutrophils (%) (Auto) 78.3 % Lymphocytes (%) (Auto) 15.6 % Monocytes (%) (Auto) 5.5 % Eosinophils (%) (Auto) 0.3 % Basophils (%) (Auto) 0.3 % Neutrophils # (Auto) 10.3 TH/MM3 Lymphocytes # (Auto) 2.1 TH/MM3 Monocytes # (Auto) 0.7 TH/MM3 Eosinophils # (Auto) 0.0 TH/MM3 Basophils # (Auto) 0.0 TH/MM3 CBC Comment DIFF FINAL Differential Comment Sodium Level 140 MEQ/L Potassium Level 4.4 MEQ/L Chloride Level 104 MEQ/L Carbon Dioxide Level 28.0 MEQ/L Anion Gap 8 MEQ/L Blood Urea Nitrogen 17 MG/DL Creatinine 1.38 MG/DL Estimat Glomerular Filtration 61 ML/MIN Rate Random Glucose 130 MG/DL Lactic Acid Level 0.8 mmol/L Calcium Level 10.0 MG/DL Total Bilirubin 0.5 MG/DL Aspartate Amino Transf 8 U/L (AST/SGOT) Alanine Aminotransferase 14 U/L (ALT/SGPT) Alkaline Phosphatase 92 U/L Total Protein 7.9 GM/DL Albumin 3.6 GM/DL [facility] Medical Decision Making Medical Screen Exam Complete: Yes Emergency Medical Condition: Yes Medical Record Reviewed: Yes Differential Diagnosis Wound dehiscence, osteomyelitis, infected wound, cellulitis, sepsis Narrative Course 71-year-old male with recent right leg BKA secondary to necrotizing fasciitis. He presents after having wound dehiscence to the surgical wound. Over the past few days he's had increased pain and a foul smell emanating from the wound. Wound care nurse sent him here for further evaluation. Examination reveals wound dehiscence, foul-smelling wound, some erythema and tenderness to palpation , bony exposure. Plan is for basic lab work, IV fluids, femur x-ray. The patient was given IV Levaquin and vancomycin. The patient's lab work and imaging studies have been reviewed. He has mild leukocytosis. I discussed with orthopedic physician male impersonator Dr. Fernandez who recommends npo after midnight with consultation to Dr. Frederick. The patient is agreeable with admission. Discussed with Dr. Ca who is agreeable with admission. Diagnosis Primary Impression: Wound dehiscence Additional Impression: Infected wound Admitting Information Admitting Physician Requests: Admit Shyam Brown Aug 28, 2016 19:01
[2016-08-28 19:41] VITALS: BP 195/87; PULSE 80; RESP 16; O2SAT 99
[2016-08-28] MEDS ORDERED: MORPHINE SULFATE 4 MG/ML INJ IV PUSH ONE (19:45)
--- NOTE | 2016-08-28 19:46 | RADRPT ---
EXAM DATE/TIME: 08/28/2016 19:23 [facility] COMPARISON: No previous studies available for comparison. INDICATIONS : Right femur amputation on 07/10/16. Patient states pain and wound not healing. MEDICAL HISTORY : Diabetes mellitus type II. Hypertension SURGICAL HISTORY : Right below knee amputation. ENCOUNTER: Initial ACUITY: 1 day PAIN SCORE: 5/10 LOCATION: Right femur. FINDINGS: There is a right-sided below the knee amputation. Extensive vascular calcifications present. No acute bony abnormality. No fracture or dislocation. CONCLUSION: 1. Right-sided below knee amputation. No acute bony abnormality. Edwin Moreno MD on August 28, 2016 at 19:42 Board Certified Radiologist. This report was verified electronically.
[2016-08-28 19:52] LABS: AUTOMATED NEUTROPHIL # 10.3 TH/MM3 (1.8-7.7); BASOPHIL % 0.3 % (0.0-2.0); EOSINOPHIL % 0.3 % (0.0-4.0); HEMATOCRIT 36.3 % (39.0-51.0); HEMO FLAGS DIFF FINAL; LYMPH % 15.6 % (9.0-44.0); LYMPHOCYTE # 2.1 TH/MM3 (1.0-4.8); MEAN CELL VOLUME 84.3 FL (80.0-100.0); MEAN CORPUSCULAR HEMOGLOBIN 27.9 PG (27.0-34.0); MEAN CORPUSCULAR HGB CONC 33.1 % (32.0-36.0); MONO % 5.5 % (0.0-8.0); NEUT % 78.3 % (16.0-70.0); PLATELET COUNT 209 TH/MM3 (150-450); RED BLOOD COUNT 4.31 MIL/MM3 (4.50-5.90); RED CELL DISTRIBUTION WIDTH 15.2 % (11.6-17.2); WHITE BLOOD COUNT 13.2 TH/MM3 (4.0-11.0)
[2016-08-28 19:55] LABS: ALT (GPT) 14 U/L (12-78); ANION GAP 8 MEQ/L (5-15); AST (GOT) 8 U/L (15-37); BLOOD UREA NITROGEN 17 MG/DL (7-18); CHLORIDE 104 MEQ/L (98-107); GLOMERULAR FILTRATION RATE 61 ML/MIN (>89); POTASSIUM 4.4 MEQ/L (3.5-5.1); SODIUM (NA) 140 MEQ/L (136-145)
[2016-08-28 19:58] LABS: ALKALINE PHOSPHATASE 92 U/L (45-117); TOTAL BILIRUBIN ADULT 0.5 MG/DL (0.2-1.0)
[2016-08-28] MEDS ORDERED: LEVOFLOXACIN 750 MG PREMIX INJ 150 ML IV ONE (20:00)
--- NOTE | 2016-08-28 20:18 | PD ---
Data Data Last Documented VS Vital Signs Date Time Temp Pulse Resp B/P Pulse Ox O2 Delivery O2 Flow Rate FiO2 08/28/16 19:41 80 16 195/87 99 Room Air 08/28/16 17:26 98.6 Orders Femur (Ap & Lat/2vws) (08/28/16 ) Complete Blood Count With Diff (08/28/16 18:56) Comprehensive Metabolic Panel (08/28/16 18:56) Lactic Acid Sepsis Protocol (08/28/16 18:56) Blood Culture (08/28/16 18:56) Wound Culture And Gram Stain (08/28/16 18:56) Ecg Monitoring (08/28/16 18:56) Iv Access Insert/Monitor (08/28/16 18:56) Oximetry (08/28/16 18:56) Oxygen Administration (08/28/16 18:56) Westergren Sedimentation Rate (08/28/16 18:58) C-Reactive Protein (Crp) (08/28/16 18:58) Morphine Inj (Morphine Inj) (08/28/16 19:45) Levofloxacin 750 Mg Premix Inj (Levaquin (08/28/16 20:00) Labs Laboratory Tests Test 08/28/16 19:13 White Blood Count 13.2 TH/MM3 Red Blood Count 4.31 MIL/MM3 Hemoglobin 12.0 GM/DL Hematocrit 36.3 % Mean Corpuscular Volume 84.3 FL Mean Corpuscular Hemoglobin 27.9 PG Mean Corpuscular Hemoglobin 33.1 % Concent Red Cell Distribution Width 15.2 % Platelet Count 209 TH/MM3 Mean Platelet Volume 9.1 FL Neutrophils (%) (Auto) 78.3 % Lymphocytes (%) (Auto) 15.6 % Monocytes (%) (Auto) 5.5 % Eosinophils (%) (Auto) 0.3 % Basophils (%) (Auto) 0.3 % Neutrophils # (Auto) 10.3 TH/MM3 Lymphocytes # (Auto) 2.1 TH/MM3 Monocytes # (Auto) 0.7 TH/MM3 Eosinophils # (Auto) 0.0 TH/MM3 Basophils # (Auto) 0.0 TH/MM3 CBC Comment DIFF FINAL Differential Comment Sodium Level 140 MEQ/L Potassium Level 4.4 MEQ/L Chloride Level 104 MEQ/L Carbon Dioxide Level 28.0 MEQ/L Anion Gap 8 MEQ/L Blood Urea Nitrogen 17 MG/DL Creatinine 1.38 MG/DL Estimat Glomerular Filtration 61 ML/MIN Rate Random Glucose 130 MG/DL Lactic Acid Level 0.8 mmol/L Calcium Level 10.0 MG/DL Total Bilirubin 0.5 MG/DL Aspartate Amino Transf 8 U/L (AST/SGOT) Alanine Aminotransferase 14 U/L (ALT/SGPT) Alkaline Phosphatase 92 U/L Total Protein 7.9 GM/DL Albumin 3.6 GM/DL [facility] Medical Record Reviewed: Yes Supervised Visit with CHARLY: Yes Differential Diagnosis Differential diagnosis right BKA status post trauma right lower extremity wound dehiscence wound infection medical noncompliance Narrative Course This is a 71-year-old type II diabetic male who is status post below the knee amputation in the past who subsequently did develop necrotizing fasciitis in the amputated limb. Later patient sustained trauma to the area of the amputation. Patient went at least 2 weeks without any medical intervention to the area. They present with a foul smelling open wound in the right leg stump. Patient is afebrile with an alert and oriented 3. White cell count 12,000, N urine cultures to be obtained and antibiotics to be given. She was admitted to the medical service for IV antibiotics and further management. Peak surgery to be consult Diagnosis Primary Impression: Wound dehiscence Additional Impression: Infected wound Admitting Information Admitting Physician Requests: Admit Condition: Stable Conrado Cohen MD Aug 28, 2016 20:18
[2016-08-28] MEDS ORDERED: VANCOMYCIN INJ 1,000 MG in SODIUM CHLOR 0.9% 250 ML INJ 250 ML IV ONE (20:30)
[2016-08-28] MEDS ORDERED: Vancomycin Consult Pharmacy 1 EA OTHER SCH (21:00)
[2016-08-28] MEDS ORDERED: NALOXONE HCL 0.4 MG/ML AMP IV PRN (21:00)
[2016-08-28 21:30] VITALS: BP 161/72; PULSE 82; RESP 16; O2SAT 97
[2016-08-28] MEDS: SODIUM CHLORIDE 0.9% FLUSH 10 ML FLUSH IV FLUSH SCH (21:50)
--- NOTE | 2016-08-28 22:10 | HHI.HP ---
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 no other symptoms Review of Systems Except as stated in HPI: all other systems reviewed are Neg Past Family Social History Past Medical History dm htn rectal cancer in 2003- s/p surgery, chemo, radiation' Past Surgical History rectal cancer sx right below knee amputation Allergies: Coded Allergies: No Known Allergies (Verified , 08/28/16) Family History mother, father, sisters, - all mother- stroke sister- obesity with knee problems father- natural cause Social History quit smoking in denies etoh abuse or drug abuse Physical Exam Vital Signs Vital Signs Date Time Temp Pulse Resp B/P Pulse Ox O2 Delivery O2 Flow Rate FiO2 08/28/16 21:30 82 16 161/72 97 Room Air 08/28/16 20:17 16 08/28/16 19:41 80 16 195/87 99 Room Air 08/28/16 17:50 18 08/28/16 17:26 98.6 95 20 183/84 97 Room Air Physical Exam GENERAL: This is a well-nourished, well-developed patient, in no apparent distress. SKIN: No rashes, ecchymoses or lesions. Cool and dry. HEAD: Atraumatic. Normocephalic. EYES: No scleral icterus. No injection or drainage. ENT: Nose without bleeding, purulent drainage or septal hematoma.. Airway patent. NECK: Trachea midline. No JVD CARDIOVASCULAR: Regular rate and rhythm without murmurs, gallops, or rubs. RESPIRATORY: Clear to auscultation. Breath sounds equal bilaterally. No wheezes , rales, or rhonchi. GASTROINTESTINAL: Abdomen soft, non-tender, nondistended. No guarding. MUSCULOSKELETAL: Extremities without clubbing, cyanosis, or edema. right bka wound dehiescence, with foul smelling drainage, exposed tibia NEUROLOGICAL: Awake and alert. . Normal speech. Laboratory Laboratory Tests Test 08/28/16 19:13 White Blood Count 13.2 Red Blood Count 4.31 Hemoglobin 12.0 Hematocrit 36.3 Mean Corpuscular Volume 84.3 Mean Corpuscular Hemoglobin 27.9 Mean Corpuscular Hemoglobin 33.1 Concent Red Cell Distribution Width 15.2 Platelet Count 209 Mean Platelet Volume 9.1 Neutrophils (%) (Auto) 78.3 Lymphocytes (%) (Auto) 15.6 Monocytes (%) (Auto) 5.5 Eosinophils (%) (Auto) 0.3 Basophils (%) (Auto) 0.3 Neutrophils # (Auto) 10.3 Lymphocytes # (Auto) 2.1 Monocytes # (Auto) 0.7 Eosinophils # (Auto) 0.0 Basophils # (Auto) 0.0 CBC Comment DIFF FINAL Differential Comment Sodium Level 140 Potassium Level 4.4 Chloride Level 104 Carbon Dioxide Level 28.0 Anion Gap 8 Blood Urea Nitrogen 17 Creatinine 1.38 Estimat Glomerular Filtration 61 Rate Random Glucose 130 Lactic Acid Level 0.8 Calcium Level 10.0 Total Bilirubin 0.5 Aspartate Amino Transf 8 (AST/SGOT) Alanine Aminotransferase 14 (ALT/SGPT) Alkaline Phosphatase 92 Total Protein 7.9 Albumin 3.6 Date/Time Procedure Status Source Growth 08/28/16 19:40 Gram Stain Received Wound Leg Pending 08/28/16 19:40 Wound Culture Received Wound Leg Pending 08/28/16 19:13 Aerobic Blood Culture Received Blood Peripheral Pending 08/28/16 19:13 Anaerobic Blood Culture Received Blood Peripheral Pending Result Diagram: 08/28/16191208/28/161912 Imaging Last 48 hours Impressions Femur X-Ray 08/28/16 0000 Signed Impressions: Service Date/Time: Sunday, August 28, 2016 19:23 - CONCLUSION: 1. Right- sided below knee amputation. No acute bony abnormality. Edwin Moreno MD Assessment and Plan Assessment and Plan Impression: right BKA wound dehiesence infected BKA stump in diabetic dm htn rectal cancer in 2003- s/p surgery, chemo, radiation' Plan: prior culture results reviewed start on vanco per crcl and levels levofloxacin per crcl pain control pt's orthopedics sx consulted npo likely will go to OR in am for debridement, cultures d5 1/2 ns at 42cc/hr resume rest of home meds except long acting insulin and oral hypoglycemics DVT prophylaxis - to start chemical prophylaxis post op Physician Certification Order for Inpatient Services The services are ordered in accordance with Medicare regulations or non- Medicare payer requirements, as applicable. In the case of services not specified as inpatient-only, they are appropriately provided as inpatient services in accordance with the 2-midnight benchmark. days is the estimated time the patient will need to remain in the hospital, assuming treatment plan goals are met and no additional complications. Ari Ca MD Aug 28, 2016 22:10
[2016-08-28] MEDS ORDERED: DEXT 5%-NACL 0.45% 1000 ML INJ 1,000 ML IV SCH (22:15)
[2016-08-28] MEDS ORDERED: GLUCAGON 1 MG/ML VIAL OTHER PRN (22:15)
[2016-08-28] MEDS ORDERED: DEXTROSE 50% IN WATER 50 ML VIAL(D50) IV PRN (22:15)
[2016-08-28 22:34] VITALS: BP 176/88; PULSE 80; RESP 20; TEMP 99.4; O2SAT 98
[2016-08-28 23:00] VITALS: PULSE 79
[2016-08-28] MEDS ORDERED: METOPROLOL TARTRATE 25 MG TAB PO ONE (23:45)
[2016-08-28] MEDS ORDERED: ENALAPRILAT 2.5 MG/2 ML VIAL IV PUSH PRN (23:45)
[2016-08-29] VITALS (9 sets, daily range): BP systolic 129–208; BP diastolic 62–90; PULSE 64–84; RESP 16–20; TEMP 98.7–100.6; O2SAT 96–100
[2016-08-29] MEDS: SODIUM CHLORIDE 0.9% FLUSH 10 ML FLUSH IV FLUSH PRN (00:20)
[2016-08-29] MEDS: MORPHINE SULFATE 4 MG/ML INJ IV PUSH PRN ×2 (00:20→15:41)
[2016-08-29 07:11] LABS: BICARBONATE 27.8 MEQ/L (21.0-32.0); POTASSIUM 4.1 MEQ/L (3.5-5.1)
[2016-08-29 07:14] LABS: AUTOMATED NEUTROPHIL # 10.4 TH/MM3 (1.8-7.7); BASOPHIL % 0.3 % (0.0-2.0); EOSINOPHIL # 0.1 TH/MM3 (0-0.4); EOSINOPHIL % 0.5 % (0.0-4.0); HEMATOCRIT 34.9 % (39.0-51.0); HEMO FLAGS DIFF FINAL; LYMPH % 10.5 % (9.0-44.0); LYMPHOCYTE # 1.3 TH/MM3 (1.0-4.8); MEAN CELL VOLUME 84.4 FL (80.0-100.0); MEAN CORPUSCULAR HGB CONC 33.1 % (32.0-36.0); MONO % 7.2 % (0.0-8.0); NEUT % 81.5 % (16.0-70.0); PLATELET COUNT 190 TH/MM3 (150-450); RED BLOOD COUNT 4.14 MIL/MM3 (4.50-5.90); RED CELL DISTRIBUTION WIDTH 15.3 % (11.6-17.2); WHITE BLOOD COUNT 12.8 TH/MM3 (4.0-11.0)
[2016-08-29] MEDS: PRAVASTATIN SOD 20 MG TAB PO SCH (08:23)
[2016-08-29] MEDS: METOPROLOL TARTRATE 25 MG TAB PO SCH ×2 (08:23→21:52)
[2016-08-29] MEDS: SODIUM CHLORIDE 0.9% FLUSH 10 ML FLUSH IV FLUSH SCH ×2 (08:24→21:53)
[2016-08-29] MEDS: LISINOPRIL 20 MG TAB PO SCH (08:24)
[2016-08-29] MEDS: cloNIDine HCL 0.1 MG TAB PO SCH (08:24)
--- NOTE | 2016-08-29 11:28 | HHI.PR ---
Subjective Remarks Follow-up infected BKA stump/wound dehiscence 08/29/16-patient seen and examined, currently afebrile and denies any significant pain at right BKA stump. Objective Vitals Vital Signs Date Time Temp Pulse Resp B/P Pulse Ox O2 Delivery O2 Flow Rate FiO2 08/29/16 09:52 74 129/62 08/29/16 08:00 98.7 79 19 208/90 98 08/29/16 04:00 99.1 68 20 161/71 97 08/29/16 03:56 Room Air 08/29/16 00:00 99.1 84 20 178/84 100 08/28/16 23:00 79 08/28/16 22:34 99.4 80 20 176/88 98 08/28/16 21:30 82 16 161/72 97 Room Air 08/28/16 20:17 16 08/28/16 19:41 80 16 195/87 99 Room Air 08/28/16 17:50 18 08/28/16 17:26 98.6 95 20 183/84 97 Room Air I/O 08/28/16 08/28/16 08/28/16 08/29/16 08/29/16 08/29/16 07:00 15:00 23:00 07:00 15:00 23:00 Intake Total 500 ml Output Total 350 ml Balance 150 ml Intake Oral 0 ml IV Total 500 ml Output Urine Total 350 ml Result Diagram: 08/29/16 0549 08/29/16 0549 Imaging Last Impressions Femur X-Ray 08/28/16 0000 Signed Impressions: Service Date/Time: Sunday, August 28, 2016 19:23 - CONCLUSION: 1. Right- sided below knee amputation. No acute bony abnormality. Edwin Moreno MD Objective Remarks GENERAL: NAD SKIN: Warm and dry. HEAD: Normocephalic. EYES: No scleral icterus. No injection or drainage. NECK: Supple, trachea midline. No JVD or lymphadenopathy. CARDIOVASCULAR: Regular rate and rhythm without murmurs, gallops, or rubs. RESPIRATORY: Breath sounds equal bilaterally. No accessory muscle use. GASTROINTESTINAL: Abdomen soft, non-tender, nondistended. MUSCULOSKELETAL: No cyanosis, or edema. Right BKA stump covered by dressing BACK: Nontender without obvious deformity. No CVA tenderness. A/P Problem List: (1) Wound dehiscence ICD Code: T81.30XA Status: Acute (2) Infection of below knee amputation stump ICD Code: T87.40 Status: Acute Assessment and Plan 71-year-old man with Infection of below knee amputation stump Wound dehiscence right BKA stump Appreciate input from orthopedic surgery Podiatry consultation pending for evaluation for possible wound VAC placement Case discussed with wound care nurse Continue with current antibiotics including Levaquin and vancomycin Pain management accordingly Hypertension Normotensive on Lopressor 12.5 mg twice a day, Prinivil 40 mg daily, clonidine 0.1 mg daily Diabetes type 2 Continue with insulin sliding scale with fingerstick blood glucose monitoring Resume basal insulin and continue to hold oral hypoglycemic agent Hyperlipidemia Resume statin Rahul Malik MD Aug 29, 2016 11:28
[2016-08-29] MEDS ORDERED: GLUCAGON 1 MG/ML VIAL OTHER PRN (11:30)
[2016-08-29] MEDS ORDERED: DEXTROSE 50% IN WATER 50 ML VIAL(D50) IV PRN (11:30)
--- NOTE | 2016-08-29 13:29 | PD.WCN.NOT ---
Wound Consult Communicated with: JOSE ALFREDO schulte, and Doctor Malik Recommendation: Normal saline Wet to dry dressing until seen by podiatry. Additional Information: Received consult for wound VAC placement on R stump. Also noted a consult for podiatry for same area. Podiatry has not seen yet. Spoke with Doctor Malik regarding holding of wound VAC placement until seen, and OK with podiatry. Doctor Malik is in agreement with this. [facility] Aug 29, 2016 13:29
[2016-08-29] MEDS: INSULIN ASPART SUPPLEMENTAL SCALE SQ SCH ×2 (15:40→21:57)
--- NOTE | 2016-08-29 20:29 | PD.CONS ---
HPI Service Orthopedic Surgeons Consult Requested By Primary Care Physician Randy Marroquin MD Admission Diagnosis wound dehiscence, infected wound Diagnoses: (1) Wound dehiscence (2) Infection of below knee amputation stump Chief Complaint: Right Below Knee Amputation wound dehiscence and infection. 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 He sustained an injury approximately 6 weeks later when his stump hit against the corner of the coffee table and dehisced his wound. He came to the office for evaluation and initiate wound vac therapy. Today he sent by his home health nurse to [facility] for further evaluation due to possible wound infection. He was admitted to the hospital. Orthopedic consultation was obtained. Past Family Social History Past Medical History dm htn rectal cancer in 2003- s/p surgery, chemo, radiation' Past Surgical History rectal cancer sx right below knee amputation Allergies: Coded Allergies: No Known Allergies (Verified , 08/28/16) Active Ordered Medications Current Medications Medications (Trade) Dose Ordered Sig/Iesha Route Start Time Stop Time Status Last Admin (NS Flush) 2 ml UNSCH PRN IV FLUSH 08/28/16 21:00 08/29/16 00:20 (NS Flush) 2 ml BID IV FLUSH 08/28/16 21:00 08/29/16 08:24 Naloxone HCl 0.4 mg 0.4 mg UNSCH PRN IV 08/28/16 21:00 Pharmacy Profile Note 0 ml @ 0 mls/hr UNSCH OTHER 08/28/16 21:00 (Levaquin 750 Mg Premix Inj) 150 ml @ 100 mls/hr Q24H IV 08/29/16 20:00 (Morphine Inj) 2 mg Q3H PRN IV PUSH 08/28/16 21:00 08/29/16 15:41 (D50w (Vial) Inj) 50 ml UNSCH PRN IV 08/28/16 22:15 (Glucagon Inj) 1 mg UNSCH PRN OTHER 08/28/16 22:15 (Catapres) 0.1 mg DAILY PO 08/29/16 09:00 08/29/16 08:24 (Lopressor) 12.5 mg BID PO 08/29/16 09:00 08/29/16 08:23 (Pravachol) 20 mg DAILY PO 08/29/16 09:00 08/29/16 08:23 (Prinivil) 40 mg DAILY PO 08/29/16 09:00 08/29/16 08:24 Enalaprilat 2.5 mg 2.5 mg Q6H PRN IV PUSH 08/28/16 23:45 08/29/16 15:37 (Vancomycin Inj/ NS 250 ml Inj) 250 ml @ 250 mls/hr Q24H IV 08/29/16 22:00 Miscellaneous Information SPECIFIC LAB TO BE ... ONCE ONCE .XX 08/30/16 21:45 08/30/16 21:46 (Levemir Inj) 10 units DAILY SQ 08/30/16 09:00 Reported Meds & Active Scripts Active Levemir Inj (Insulin Detemir) 1,000 unit/ 10 ML Vial 10 Units SQ DAILY 30 Days Metoprolol Tartrate 25 Mg Tab 12.5 Mg PO BID 30 Days Ferosul (Ferrous Sulfate) 325 Mg Tablet 325 Mg PO DAILY 30 Days Clonidine (Clonidine HCl) 0.1 Mg Tab 0.1 Mg PO DAILY Pravastatin 20 Mg Tab 20 Mg PO DAILY Reported Hydrocodone-Acetaminophen 5-325 mg Tab 1 Tab PO Q6H PRN Lisinopril 40 Mg Tab 40 Mg PO DAILY Metformin (Metformin HCl) 500 Mg Tab 500 Mg PO BIDPC With meals Family History mother, father, sisters, - all mother- stroke sister- obesity with knee problems father- natural cause Social History quit smoking in 1980s denies etoh abuse or drug abuse Physical Exam Vital Signs Vital Signs Date Time Temp Pulse Resp B/P Pulse Ox O2 Delivery O2 Flow Rate FiO2 08/29/16 16:00 100.6 69 19 181/79 98 08/29/16 12:00 99.0 64 19 176/80 96 08/29/16 09:52 74 129/62 08/29/16 08:15 79 08/29/16 08:00 Room Air 08/29/16 08:00 98.7 79 19 208/90 98 08/29/16 04:00 99.1 68 20 161/71 97 08/29/16 03:56 Room Air 08/29/16 00:00 99.1 84 20 178/84 100 08/28/16 23:00 79 08/28/16 22:34 99.4 80 20 176/88 98 08/28/16 21:30 82 16 161/72 97 Room Air 08/28/16 20:17 16 Physical Exam Right stump dehisced wound yellow-green slough through incision no purulent drainage or tunneling noted granulated tissue noted around the edges debridement was done at bedside. patient tolerated well. bone exposure was noted applied wet-to-dry dressing Laboratory Laboratory Tests Test 08/29/16 05:49 White Blood Count 12.8 Red Blood Count 4.14 Hemoglobin 11.6 Hematocrit 34.9 Mean Corpuscular Volume 84.4 Mean Corpuscular Hemoglobin 28.0 Mean Corpuscular Hemoglobin 33.1 Concent Red Cell Distribution Width 15.3 Platelet Count 190 Mean Platelet Volume 9.1 Neutrophils (%) (Auto) 81.5 Lymphocytes (%) (Auto) 10.5 Monocytes (%) (Auto) 7.2 Eosinophils (%) (Auto) 0.5 Basophils (%) (Auto) 0.3 Neutrophils # (Auto) 10.4 Lymphocytes # (Auto) 1.3 Monocytes # (Auto) 0.9 Eosinophils # (Auto) 0.1 Basophils # (Auto) 0.0 CBC Comment DIFF FINAL Differential Comment Sodium Level 140 Potassium Level 4.1 Chloride Level 106 Carbon Dioxide Level 27.8 Anion Gap 6 Blood Urea Nitrogen 14 Creatinine 1.29 Estimat Glomerular Filtration 66 Rate Random Glucose 168 Calcium Level 9.3 Date/Time Procedure Status Source Growth 08/28/16 19:40 Gram Stain - Final Resulted Wound Leg 08/28/16 19:40 Wound Culture - Preliminary Resulted S. Aureus Mrsa Gram Negative [place] 08/28/16 19:13 Aerobic Blood Culture - Preliminary Resulted Blood Peripheral NO GROWTH IN 1 DAY 08/28/16 19:13 Anaerobic Blood Culture - Preliminary Resulted Blood Peripheral NO GROWTH IN 1 DAY Result Diagram: 08/29/16 0549 08/29/16 0549 Assessment & Plan Problem List: (1) Wound dehiscence (2) Infection of below knee amputation stump Assessment and Plan Patient's condition was discussed, his options of treatment was discussed. Debridement was performed at bedside. Patient tolerate well. Recommend surgical intervention at this time. Procedure for surgery was explained in detail. Patient is in agreement. Anticipating surgery tomorrow (Friday) evening. NPO after midnight Continue daily wet-to-dry dressing Continue with IV abx therapy. Patient's case was discussed with Dr. Frederick. Patient asked appropriate questions. All questions answered. Chito Nichols Aug 29, 2016 20:29
[2016-08-29] MEDS: LEVOFLOXACIN 750 MG PREMIX INJ 150 ML IV SCH (21:52)
[2016-08-29] MEDS: VANCOMYCIN 1,000 MG/NS 250 ML IV SCH ×2 (21:52)
[2016-08-30] VITALS (9 sets, daily range): BP systolic 107–166; BP diastolic 54–76; PULSE 57–80; RESP 18; TEMP 97.9–99.9; O2SAT 94–100
[2016-08-30] MEDS: INSULIN ASPART SUPPLEMENTAL SCALE SQ SCH ×4 (05:59→21:00)
[2016-08-30 07:16] LABS: AUTOMATED NEUTROPHIL # 11.3 TH/MM3 (1.8-7.7); BASOPHIL % 0.2 % (0.0-2.0); EOSINOPHIL # 0.1 TH/MM3 (0-0.4); EOSINOPHIL % 0.4 % (0.0-4.0); HEMATOCRIT 34.3 % (39.0-51.0); HEMO FLAGS DIFF FINAL; LYMPH % 12.1 % (9.0-44.0); LYMPHOCYTE # 1.7 TH/MM3 (1.0-4.8); MEAN CELL VOLUME 84.6 FL (80.0-100.0); MEAN CORPUSCULAR HEMOGLOBIN 27.3 PG (27.0-34.0); MEAN CORPUSCULAR HGB CONC 32.3 % (32.0-36.0); MONO % 8.9 % (0.0-8.0); NEUT % 78.4 % (16.0-70.0); PLATELET COUNT 172 TH/MM3 (150-450); RED BLOOD COUNT 4.05 MIL/MM3 (4.50-5.90); RED CELL DISTRIBUTION WIDTH 15.1 % (11.6-17.2); WHITE BLOOD COUNT 14.4 TH/MM3 (4.0-11.0)
[2016-08-30 07:20] LABS: BICARBONATE 27.5 MEQ/L (21.0-32.0); POTASSIUM 3.7 MEQ/L (3.5-5.1)
[2016-08-30] MEDS: MORPHINE SULFATE 4 MG/ML INJ IV PUSH PRN ×2 (08:34→16:43)
[2016-08-30] MEDS: SODIUM CHLORIDE 0.9% FLUSH 10 ML FLUSH IV FLUSH SCH ×2 (08:35→22:00)
[2016-08-30] MEDS: PRAVASTATIN SOD 20 MG TAB PO SCH (08:35)
[2016-08-30] MEDS: METOPROLOL TARTRATE 25 MG TAB PO SCH ×2 (08:37→22:00)
[2016-08-30] MEDS: cloNIDine HCL 0.1 MG TAB PO SCH (08:38)
[2016-08-30] MEDS: LISINOPRIL 20 MG TAB PO SCH (08:38)
[2016-08-30] MEDS: INSULIN DETEMIR 100 UNITS/ML VIAL SQ SCH (08:43)
--- NOTE | 2016-08-30 09:40 | HHI.PR ---
Subjective Remarks Follow-up infected BKA stump/wound dehiscence 08/29/16-patient seen and examined, currently afebrile and denies any significant pain at right BKA stump. 08/30/16-patient seen and examined, Tmax 99.9 however currently afebrile. Patient is nothing by mouth pending trip to allow for debridement and possible wound VAC placement. wound culture positive for MRSA Objective Vitals Vital Signs Date Time Temp Pulse Resp B/P Pulse Ox O2 Delivery O2 Flow Rate FiO2 08/30/16 08:00 99.4 80 18 131/61 98 08/30/16 04:00 Room Air 08/30/16 04:00 99.5 72 18 135/61 98 08/30/16 00:00 Room Air 08/30/16 00:00 99.9 71 18 138/67 97 08/29/16 20:00 99.8 70 16 172/78 98 08/29/16 20:00 Room Air 08/29/16 19:37 77 08/29/16 16:00 100.6 69 19 181/79 98 08/29/16 12:00 99.0 64 19 176/80 96 08/29/16 09:52 74 129/62 I/O 08/29/16 08/29/16 08/29/16 08/30/16 08/30/16 08/30/16 07:00 15:00 23:00 07:00 15:00 23:00 Intake Total 500 ml 520 ml 100 ml Output Total 350 ml 850 ml 350 ml Balance 150 ml -330 ml -250 ml Intake Oral 0 ml 120 ml IV Total 500 ml 400 ml 100 ml Output Urine Total 350 ml 850 ml 350 ml # Voids 3 # Bowel Movements 2 2 1 Result Diagram: 08/30/16 0627 08/30/16 0624 Imaging Last Impressions Femur X-Ray 08/28/16 0000 Signed Impressions: Service Date/Time: Sunday, August 28, 2016 19:23 - CONCLUSION: 1. Right- sided below knee amputation. No acute bony abnormality. Edwin Moreno MD Objective Remarks GENERAL: NAD SKIN: Warm and dry. HEAD: Normocephalic. EYES: No scleral icterus. No injection or drainage. NECK: Supple, trachea midline. No JVD or lymphadenopathy. CARDIOVASCULAR: Regular rate and rhythm without murmurs, gallops, or rubs. RESPIRATORY: Breath sounds equal bilaterally. No accessory muscle use. GASTROINTESTINAL: Abdomen soft, non-tender, nondistended. MUSCULOSKELETAL: No cyanosis, or edema. Right BKA stump covered by dressing BACK: Nontender without obvious deformity. No CVA tenderness. A/P Problem List: (1) Wound dehiscence ICD Code: T81.30XA Status: Acute (2) Infection of below knee amputation stump ICD Code: T87.40 Status: Acute Assessment and Plan 71-year-old man with Infection of below knee amputation stump Wound dehiscence right BKA stump Appreciate input from orthopedic surgery and plan for possible I&D and wound VAC placement in the OR today 08/30/16 Continue with current antibiotics including Levaquin and vancomycin as warm culture positive for MRSA Pain management accordingly Hypertension Normotensive on Lopressor 12.5 mg twice a day, Prinivil 40 mg daily, clonidine 0.1 mg daily Diabetes type 2 Continue with insulin sliding scale with fingerstick blood glucose monitoring Continue basal insulin and continue to hold oral hypoglycemic agent Hyperlipidemia Continue statin Rahul Malik MD Aug 30, 2016 09:40
[2016-08-30] MEDS ORDERED: PROPOFOL 200 MG/20 ML AMP IV ONE (12:00)
[2016-08-30] MEDS ORDERED: ePHEDrine/NS 25 MG/5 ML SYR IV ONE (12:00)
[2016-08-30] MEDS ORDERED: ONDANSETRON HCL 4 MG/2 ML VIAL IV PUSH ONE (12:00)
[2016-08-30] MEDS ORDERED: GENTAMICIN SULFATE 80 MG/2 ML VIAL ONE (16:54)
[2016-08-30] MEDS ORDERED: SENNOSIDES 8.6 MG TAB PO PRN (17:45)
[2016-08-30] MEDS ORDERED: Post-op Orders (for Pharmacy) MISC XX ONE (17:45)
[2016-08-30] MEDS ORDERED: BISACODYL 10 MG SUPP RECTAL PRN (17:45)
[2016-08-30] MEDS ORDERED: MAGNESIUM HYDROXIDE SUSP 30 ML CUP PO PRN (17:45)
[2016-08-30] MEDS ORDERED: LACTULOSE SYRUP 20 GM/30 ML CUP PO PRN (17:45)
[2016-08-30] MEDS ORDERED: ceFAZolin INJ 1,000 MG VIAL IV ONE (17:56)
[2016-08-30] MEDS ORDERED: NEOMYCIN/POLYMYXIN 1 ML G.U. IRRIGANT TOPICAL ONE (18:00)
--- NOTE | 2016-08-30 18:54 | PD.OP ---
Operative Report Preoperative Diagnosis: (1) Infection of below knee amputation stump Postoperative Diagnosis: (1) S/P below knee amputation Procedure: Revision Right Below Knee Amputation Anesthesia: General Surgeon: Jean Marie Frederick MD Fashion Coordinator(s): staff Operation and Findings: see dictation Jean Marie Frederick MD Aug 30, 2016 18:54
[2016-08-30] MEDS ORDERED: DO NOT ADM ANY ANTICOAGULANT DRUGS PRN (18:55)
[2016-08-30] MEDS ORDERED: fentaNYL CITRATE 250 MCG/5 ML AMP ONE (19:09)
[2016-08-30] MEDS ORDERED: PHARMACY ORDERED LAB ONE (21:45)
[2016-08-30] MEDS: PCA - TOTAL MG DILAUDID DELIVERED PER SHIFT OTHER SCH (22:00)
[2016-08-30] MEDS ORDERED: PCA - TOTAL MG DILAUDID DELIVERED PER SHIFT OTHER SCH (22:00)
[2016-08-30] MEDS: LACTATED RINGER'S 1000 ML INJ 1,000 ML IV SCH (22:00)
[2016-08-30] MEDS: LEVOFLOXACIN 750 MG PREMIX INJ 150 ML IV SCH (22:00)
[2016-08-30] MEDS: DOCUSATE SODIUM 50 MG/SENNA 8.6 MG TAB PO SCH (22:00)
[2016-08-30] MEDS: VANCOMYCIN 1,000 MG/NS 250 ML IV SCH ×2 (23:38)
[2016-08-31] VITALS (7 sets, daily range): BP systolic 124–149; BP diastolic 58–67; PULSE 63–68; RESP 16–18; TEMP 98–99.1; O2SAT 95–100
[2016-08-31] MEDS: INSULIN ASPART SUPPLEMENTAL SCALE SQ SCH ×4 (05:50→20:57)
[2016-08-31] MEDS: PCA - TOTAL MG DILAUDID DELIVERED PER SHIFT OTHER SCH ×3 (05:50→21:02)
[2016-08-31 07:47] LABS: AUTOMATED NEUTROPHIL # 7.9 TH/MM3 (1.8-7.7); BASOPHIL % 0.3 % (0.0-2.0); EOSINOPHIL # 0.2 TH/MM3 (0-0.4); EOSINOPHIL % 1.7 % (0.0-4.0); HEMO FLAGS DIFF FINAL; LYMPH % 13.4 % (9.0-44.0); LYMPHOCYTE # 1.4 TH/MM3 (1.0-4.8); MEAN CELL VOLUME 84.4 FL (80.0-100.0); MEAN CORPUSCULAR HEMOGLOBIN 28.2 PG (27.0-34.0); MEAN CORPUSCULAR HGB CONC 33.5 % (32.0-36.0); MONO % 7.2 % (0.0-8.0); NEUT % 77.4 % (16.0-70.0); PLATELET COUNT 154 TH/MM3 (150-450); RED BLOOD COUNT 3.44 MIL/MM3 (4.50-5.90); RED CELL DISTRIBUTION WIDTH 15.2 % (11.6-17.2); WHITE BLOOD COUNT 10.2 TH/MM3 (4.0-11.0)
[2016-08-31] MEDS: SODIUM CHLORIDE 0.9% FLUSH 10 ML FLUSH IV FLUSH SCH ×2 (09:00→20:54)
[2016-08-31] MEDS: METOPROLOL TARTRATE 25 MG TAB PO SCH ×2 (09:20→20:57)
[2016-08-31] MEDS: LISINOPRIL 20 MG TAB PO SCH (09:21)
[2016-08-31] MEDS: cloNIDine HCL 0.1 MG TAB PO SCH (09:21)
[2016-08-31] MEDS: PRAVASTATIN SOD 20 MG TAB PO SCH (09:21)
[2016-08-31] MEDS: DOCUSATE SODIUM 50 MG/SENNA 8.6 MG TAB PO SCH ×2 (09:21→20:57)
[2016-08-31] MEDS: LACTATED RINGER'S 1000 ML INJ 1,000 ML IV SCH ×2 (09:22→22:04)
--- NOTE | 2016-08-31 09:23 | PD.ORT.PN ---
Subjective Subjective Remarks No complaints. Sitting in bed comfortably Objective Vitals Vital Signs Date Time Temp Pulse Resp B/P Pulse Ox O2 Delivery O2 Flow Rate FiO2 08/31/16 08:00 98.7 65 18 148/65 100 08/31/16 05:50 16 08/31/16 04:00 98.8 66 18 131/62 100 08/31/16 00:00 98.0 63 16 124/58 100 08/30/16 22:00 16 08/30/16 20:08 57 08/30/16 20:00 Nasal Cannula 2.00 08/30/16 20:00 97.9 71 18 166/76 100 08/30/16 19:45 74 12 164/68 100 Nasal Cannula 3 08/30/16 19:43 100 Nasal Cannula 3.00 08/30/16 19:30 77 11 166/72 100 Nasal Cannula 3 08/30/16 19:15 74 12 167/75 100 Nasal Cannula 3 08/30/16 19:00 97.6 88 12 159/70 100 Nasal Cannula 3 08/30/16 16:00 98.6 62 18 141/64 100 08/30/16 12:00 98.9 63 18 107/54 94 08/30/16 10:30 70 I/O 08/30/16 08/30/16 08/30/16 08/31/16 08/31/16 08/31/16 07:00 15:00 23:00 07:00 15:00 23:00 Intake Total 100 ml 480 ml 1237 ml 1109 ml Output Total 350 ml 250 ml 150 ml 800 ml Balance -250 ml 230 ml 1087 ml 309 ml Intake Oral 480 ml 480 ml 360 ml IV Total 100 ml 0 ml 157 ml 749 ml Other 600 ml Output Urine Total 350 ml 250 ml 100 ml 800 ml Drainage Total 0 ml 0 ml Estimated Blood Loss 50 ml # Voids 1 # Bowel Movements 1 1 0 0 Result Diagram: 08/31/16 0609 08/30/16 0624 Objective Remarks Dressing dry. No drainage Assessment & Plan Ortho Post Op Day #: 1 Problem List: (1) Wound dehiscence (2) Infection of below knee amputation stump Assessment and Plan Status post BKA. Revision BKA: POD #1 PLAN: Dressing changes per Dr. Frederick IV antibiotics Stable orthopedically Isaiah Tapia MD Aug 31, 2016 09:23
[2016-08-31] MEDS: INSULIN DETEMIR 100 UNITS/ML VIAL SQ SCH (09:28)
--- NOTE | 2016-08-31 10:28 | HHI.PR ---
Subjective Remarks Follow-up infected BKA stump/wound dehiscence 08/29/16-patient seen and examined, currently afebrile and denies any significant pain at right BKA stump. 08/30/16-patient seen and examined, Tmax 99.9 however currently afebrile. Patient is nothing by mouth pending trip to allow for debridement and possible wound VAC placement. wound culture positive for MRSA 08/31/16-patient seen and examined, he status post revision right BKA ,denies any right stump pain. Currently afebrile Objective Vitals Vital Signs Date Time Temp Pulse Resp B/P Pulse Ox O2 Delivery O2 Flow Rate FiO2 08/31/16 09:30 100 Nasal Cannula 2.00 08/31/16 09:00 64 08/31/16 08:00 98.7 65 18 148/65 100 08/31/16 05:50 16 08/31/16 04:00 98.8 66 18 131/62 100 08/31/16 00:00 98.0 63 16 124/58 100 08/30/16 22:00 16 08/30/16 20:08 57 08/30/16 20:00 Nasal Cannula 2.00 08/30/16 20:00 97.9 71 18 166/76 100 08/30/16 19:45 74 12 164/68 100 Nasal Cannula 3 08/30/16 19:43 100 Nasal Cannula 3.00 08/30/16 19:30 77 11 166/72 100 Nasal Cannula 3 08/30/16 19:15 74 12 167/75 100 Nasal Cannula 3 08/30/16 19:00 97.6 88 12 159/70 100 Nasal Cannula 3 08/30/16 16:00 98.6 62 18 141/64 100 08/30/16 12:00 98.9 63 18 107/54 94 08/30/16 10:30 70 I/O 08/30/16 08/30/16 08/30/16 08/31/16 08/31/16 08/31/16 07:00 15:00 23:00 07:00 15:00 23:00 Intake Total 100 ml 480 ml 1237 ml 1109 ml Output Total 350 ml 250 ml 150 ml 800 ml Balance -250 ml 230 ml 1087 ml 309 ml Intake Oral 480 ml 480 ml 360 ml IV Total 100 ml 0 ml 157 ml 749 ml Other 600 ml Output Urine Total 350 ml 250 ml 100 ml 800 ml Drainage Total 0 ml 0 ml Estimated Blood Loss 50 ml # Voids 1 # Bowel Movements 1 1 0 0 Result Diagram: 08/31/16 0609 08/30/16623 Objective Remarks GENERAL: NAD SKIN: Warm and dry. HEAD: Normocephalic. EYES: No scleral icterus. No injection or drainage. NECK: Supple, trachea midline. No JVD or lymphadenopathy. CARDIOVASCULAR: Regular rate and rhythm without murmurs, gallops, or rubs. RESPIRATORY: Breath sounds equal bilaterally. No accessory muscle use. GASTROINTESTINAL: Abdomen soft, non-tender, nondistended. MUSCULOSKELETAL: No cyanosis, or edema. Right BKA stump with wound VAC in place BACK: Nontender without obvious deformity. No CVA tenderness. Procedures Revision right BKA stump wound VAC placement 08/30/16 A/P Problem List: (1) Wound dehiscence ICD Code: T81.30XA Status: Acute (2) Infection of below knee amputation stump ICD Code: T87.40 Status: Acute Assessment and Plan 71-year-old man with Infection of below knee amputation stump Wound dehiscence right BKA stump Appreciate input from orthopedic surgery and status post revision right BKA with wound VAC placement 08/30/16 Continue with current antibiotics including Levaquin and vancomycin ; wound culture positive for MRSA Consult infectious disease specialist Pain management accordingly Hypertension Normotensive on Lopressor 12.5 mg twice a day, Prinivil 40 mg daily, clonidine 0.1 mg daily Diabetes type 2 Continue with insulin sliding scale with fingerstick blood glucose monitoring Continue basal insulin and continue to hold oral hypoglycemic agent Hyperlipidemia Continue statin Rahul Malik MD Aug 31, 2016 10:28
--- NOTE | 2016-08-31 15:49 | MB ---
cc: CHELSIE QUIJANO MD DATE OF CONSULTATION: 08/31/2016. REASON FOR CONSULTATION: Patient with a history of diabetes and infected right below-knee amputation stump. Evaluate and advise on therapy. REQUESTING PHYSICIAN: Dr. Malik. HISTORY OF PRESENT ILLNESS: This is a 71-year-old black male who has had ysukv-maq-yvua amputation because of gangrene of his right lower extremity. The patient presented to the emergency department with a dehisced open stump wound with exposed bone. Culture taken on admission showed several MRSA and Klebsiella. The patient was evaluated by orthopedic surgery and was taken to surgery and had revision of the below-knee amputation stump. Culture was taken and the results are pending from that culture. The patient has a wound VAC at the right foot stump. He had a temperature of 100 degrees on 08/29 and his white count had climbed to 14.4 yesterday. Currently he tells me that he feels well. He has no complaints. He is comfortable laying in bed. He is awake and alert and oriented. PAST MEDICAL HISTORY: 1. Diabetes mellitus. 2. Hypertension. 3. Rectal cancer in 2003 treated with chemotherapy, radiation and surgery. 4. 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 ALLERGIES: NO KNOWN DRUG ALLERGIES. MEDICATIONS: 1. Vancomycin. 2. Levaquin. 3. Morphine sulfate via FRUIT OR NUT GROWER. 4. Prinivil. 5. Vasotec. 6. Pravachol. 7. Lopressor. 8. Catapres. 9. Insulin. 10. Teresa-Colace. SOCIAL HISTORY: The patient denies tobacco, alcohol or illicit drugs. FAMILY HISTORY: Noncontributory. REVIEW OF SYSTEMS: Negative on a ten-point review. PHYSICAL EXAMINATION: GENERAL: This is a slender male who is in no acute distress. He is awake and alert and oriented. VITAL SIGNS: Include temperature of 98.6, blood pressure 126/58, respirations 18, pulse 68. HEAD, EYES, EARS, NOSE, THROAT: Head is atraumatic. Extraocular movements grossly intact, pupils reactive to light. No icterus. Oropharynx no visible lesions. NECK: The neck is supple without adenopathy. LUNGS: Clear breath sounds. HEART: Regular S1-S2. ABDOMEN: Bowel sounds present, soft, nontender. RECTAL: Not performed. EXTREMITIES: Right stump [id number] has a wound VAC in place and it has serous drainage in the tubing. Very little drainage coming out currently. The left lower extremity has no clubbing or cyanosis or edema. SKIN: No rash. NEUROLOGIC: Alert and oriented. No gross focal findings. PSYCHIATRIC: The patient is calm and cooperative. LABORATORY DATA: WBC 10.2, platelets 154,000, 77% neutrophils. Creatinine 1.46, BUN 16, sodium 140, estimated GFR 58. Liver function tests normal. IMPRESSION: 1. Infected right below-knee amputation stump wound with culture showing MRSA and Klebsiella. 2. Diabetes mellitus. RECOMMENDATIONS: 1. Continue vancomycin. 2. Continue Levaquin. 3. Follow wound healing. I recommend that the patient be given the intravenous vancomycin for a week while following the wound healing. Thank you for this consultation. I will monitor the patient's progress with you and make further recommendations on followup. Chelsie Quijano MD FD/MARIA TERESA /12:42 PM /3:40 PM
[2016-08-31] MEDS: HYDROmorphone HCL PCA 6 MG/30 ML IV SCH (20:51)
[2016-08-31] MEDS: LEVOFLOXACIN 750 MG PREMIX INJ 150 ML IV SCH (20:54)
[2016-08-31] MEDS: VANCOMYCIN 1,000 MG/NS 250 ML IV SCH ×2 (22:05)
--- NOTE | 2016-08-31 22:33 | MP ---
cc: ONEL FREDERICK M.D. 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 PROCEDURE Revision right [id number]-phkt amputation. ANESTHESIA General. SURGEON Onel Frederick MD ESTIMATED BLOOD LOSS 100 cc. DRAINS Vacuum-assisted closure device. SPECIMENS Deep culture sent, routine. COMPLICATIONS None known. INDICATION Onel Little is a 71-year-old diabetic male who underwent right below knee amputation ____ two months ago. He has had problems with wound breakdown which we have attempted to manage with home health care on outpatient basis. He had further progression of infectious process and was admitted 2 days ago. He had a significant amount of necrotic tissue within the base of the wound and bedside debridement of necrotic tissue revealed a prominent bone which was essentially at the level of the superior flap. The options of treatment were discussed and it was recommended that he undergo revision surgery. Risks, benefits were thoroughly discussed with the patient including the risk of infection, further wound breakdown, anesthetic complications, medical complications and unforeseen possible complications. All of his questions were answered. He wished to press on with the revision surgery. Detailed informed consent was obtained. PROCEDURE The patient was brought the operating room directly and then placed under general anesthetic. The right lower extremity residual limb was prepped and draped in the usual sterile fashion. A proximal tourniquet was in place. We proceeded with the time-out. We proceeded with debridement of obvious necrotic tissue and did have some bleeding and we decided to put the tourniquet up and then proceeded to split the superior flap and inferior flap to gain more exposure of the bone and then performed subperiosteal dissection and then exposed approximately 2 inches of bone, the very distal end of the bone did appear to be dysvascular but at this level appeared to be vascular. This was our amputation level, approximately 1 inch higher than original level. A transverse cut was made with an oscillating saw. This was approximately at the level of the fibula cut but the fibula was not identified, ____ that portion of the wound had already healed in. At this point we beveled the superior edge. Then we used a file to smooth the edge of the bone and then again we used antibiotic irrigation pulse lavage and we used a total of 3000 cc. We then developed muscular flap and we performed a pursestring closure on the end of the bone and we further developed our flaps and revised our skin and then used large vertical mattress #1 PDS suture to close the skin loosely and then overlying this we did a vacuum-assisted closure device. It should be noted that we had already let the tourniquet down after the bone cut was made and we had very good hemostasis and we thoroughly irrigated out and overall hemostasis was good. We had a cosmetic closure but used the vacuum-assisted closure device over the wound to be suctioned out through the small ___ to account for drainage. We then proceeded to wrap with Sof-Rol and Zafar wrap and then placed in a knee immobilizer and then the patient was awoken and returned to the recovery room in stable condition. MD YOBANY White/UZMA /7:07 PM /10:13 PM
[2016-09-01 00:27] VITALS: BP 156/68; PULSE 71; RESP 18; TEMP 98.2; O2SAT 95
[2016-09-01 05:24] VITALS: BP 168/73; PULSE 72; RESP 18; TEMP 98.6; O2SAT 96
[2016-09-01] MEDS: PCA - TOTAL MG DILAUDID DELIVERED PER SHIFT OTHER SCH ×3 (06:00→21:56)
[2016-09-01] MEDS: INSULIN ASPART SUPPLEMENTAL SCALE SQ SCH ×4 (06:05→21:00)
[2016-09-01 08:00] VITALS: BP 170/75; PULSE 72; RESP 18; TEMP 98.7; O2SAT 97
--- NOTE | 2016-09-01 09:06 | PD.ORT.PN ---
Subjective Subjective Remarks Comfortable. Some stump pain but no other complaints. No interval changes overnight. NO new CP, abd pain or SOB . Objective Vitals Vital Signs Date Time Temp Pulse Resp B/P Pulse Ox O2 Delivery O2 Flow Rate FiO2 09/01/16 08:00 98.7 72 18 170/75 97 09/01/16 06:00 16 09/01/16 05:24 98.6 72 18 168/73 96 09/01/16 04:00 Room Air 09/01/16 00:27 98.2 71 18 156/68 95 09/01/16 00:00 Room Air 08/31/16 21:02 16 08/31/16 20:51 16 08/31/16 20:00 Room Air 08/31/16 20:00 99.1 67 18 149/67 95 08/31/16 16:00 98.3 65 18 135/64 98 08/31/16 14:00 18 08/31/16 12:00 98.6 68 18 126/58 97 08/31/16 10:45 97 Room Air 08/31/16 09:30 100 Nasal Cannula 2.00 I/O 08/31/16 08/31/16 08/31/16 09/01/16 09/01/16 09/01/16 07:00 15:00 23:00 07:00 15:00 23:00 Intake Total 1109 ml 1444 ml 686 ml 686 ml Output Total 800 ml 0 ml 150 ml 100 ml Balance 309 ml 1444 ml 536 ml 586 ml Intake Oral 360 ml 720 ml IV Total 749 ml 724 ml 686 ml 686 ml Output Urine Total 800 ml 150 ml 100 ml Drainage Total 0 ml 0 ml # Voids 2 # Bowel Movements 0 0 1 Result Diagram: 08/31/16 0609 08/30/16 0624 Objective Remarks Sitting up in bed Just ordered breakfast NAD VSS RLE Dressing/VAC intact, no saturation, SS drainage in VAC, thigh supple, +cap refill soft tissues, +motor hip flexion Assessment & Plan Ortho Post Op Day #: 2 Problem List: (1) Wound dehiscence (2) Infection of below knee amputation stump Assessment and Plan Status post BKA. Revision BKA: POD #2 PLAN: Dressing / VAC changes per Dr. Frederick IV antibiotics Stable orthopedically Vandana Stubbs Sep 01, 2016 09:06
[2016-09-01] MEDS: INSULIN DETEMIR 100 UNITS/ML VIAL SQ SCH (09:41)
--- NOTE | 2016-09-01 09:44 | HHI.PR ---
Subjective Remarks Follow-up infected BKA stump/wound dehiscence 08/29/16-patient seen and examined, currently afebrile and denies any significant pain at right BKA stump. 08/30/16-patient seen and examined, Tmax 99.9 however currently afebrile. Patient is nothing by mouth pending trip to allow for debridement and possible wound VAC placement. wound culture positive for MRSA 08/31/16-patient seen and examined, he status post revision right BKA ,denies any right stump pain. Currently afebrile 09/01/16-patient seen and examined; reports some stump pain overnight otherwise stable, afebrile. Currently tolerating by mouth without any competition nausea and vomiting. Objective Vitals Vital Signs Date Time Temp Pulse Resp B/P Pulse Ox O2 Delivery O2 Flow Rate FiO2 09/01/16 08:00 98.7 72 18 170/75 97 09/01/16 06:00 16 09/01/16 05:24 98.6 72 18 168/73 96 09/01/16 04:00 Room Air 09/01/16 00:27 98.2 71 18 156/68 95 09/01/16 00:00 Room Air 08/31/16 21:02 16 08/31/16 20:51 16 08/31/16 20:00 Room Air 08/31/16 20:00 99.1 67 18 149/67 95 08/31/16 16:00 98.3 65 18 135/64 98 08/31/16 14:00 18 08/31/16 12:00 98.6 68 18 126/58 97 08/31/16 10:45 97 Room Air I/O 08/31/16 08/31/16 08/31/16 09/01/16 09/01/16 09/01/16 07:00 15:00 23:00 07:00 15:00 23:00 Intake Total 1109 ml 1444 ml 686 ml 686 ml Output Total 800 ml 0 ml 150 ml 100 ml Balance 309 ml 1444 ml 536 ml 586 ml Intake Oral 360 ml 720 ml IV Total 749 ml 724 ml 686 ml 686 ml Output Urine Total 800 ml 150 ml 100 ml Drainage Total 0 ml 0 ml # Voids 2 # Bowel Movements 0 0 1 Result Diagram: 08/31/1660808/30/16623 Objective Remarks GENERAL: NAD SKIN: Warm and dry. HEAD: Normocephalic. EYES: No scleral icterus. No injection or drainage. NECK: Supple, trachea midline. No JVD or lymphadenopathy. CARDIOVASCULAR: Regular rate and rhythm without murmurs, gallops, or rubs. RESPIRATORY: Breath sounds equal bilaterally. No accessory muscle use. GASTROINTESTINAL: Abdomen soft, non-tender, nondistended. MUSCULOSKELETAL: No cyanosis, or edema. Right BKA stump with wound VAC in place BACK: Nontender without obvious deformity. No CVA tenderness. Procedures Revision right BKA stump wound VAC placement 08/30/16 A/P Problem List: (1) Wound dehiscence ICD Code: T81.30XA Status: Acute (2) Infection of below knee amputation stump ICD Code: T87.40 Status: Acute Assessment and Plan 71-year-old man with Infection of below knee amputation stump Wound dehiscence right BKA stump Appreciate input from orthopedic surgery and status post revision right BKA with wound VAC placement 08/30/16. Wound VAC management per orthopedic surgery Continue with current antibiotics including Levaquin and vancomycin ; wound culture positive for MRSA Patient to complete at least a 7 days course of IV vancomycin (end date 09/04) Appreciate input from infectious disease specialist Pain management accordingly Hypertension Normotensive on Lopressor 12.5 mg twice a day, Prinivil 40 mg daily, clonidine 0.1 mg daily Diabetes type 2 Continue with insulin sliding scale with fingerstick blood glucose monitoring Continue basal insulin and continue to hold oral hypoglycemic agent Hyperlipidemia Continue statin Rahul Malik MD Sep 01, 2016 09:44
[2016-09-01] MEDS: DOCUSATE SODIUM 50 MG/SENNA 8.6 MG TAB PO SCH ×2 (09:48→20:49)
[2016-09-01] MEDS: PRAVASTATIN SOD 20 MG TAB PO SCH (09:48)
[2016-09-01] MEDS: SODIUM CHLORIDE 0.9% FLUSH 10 ML FLUSH IV FLUSH SCH ×2 (09:48→20:48)
[2016-09-01] MEDS: cloNIDine HCL 0.1 MG TAB PO SCH (09:48)
[2016-09-01] MEDS: LISINOPRIL 20 MG TAB PO SCH (09:49)
[2016-09-01] MEDS: METOPROLOL TARTRATE 25 MG TAB PO SCH ×2 (09:49→20:49)
[2016-09-01] MEDS: LACTATED RINGER'S 1000 ML INJ 1,000 ML IV SCH ×2 (11:52→21:48)
[2016-09-01 12:00] VITALS: BP 173/78; PULSE 60; RESP 18; TEMP 99.5; O2SAT 97
[2016-09-01 16:00] VITALS: BP 187/78; PULSE 76; RESP 18; TEMP 99.3; O2SAT 94
[2016-09-01] MEDS ORDERED: ACETAMINOPHEN 325 MG TAB PO PRN (19:30)
[2016-09-01] MEDS: LEVOFLOXACIN 750 MG PREMIX INJ 150 ML IV SCH (20:49)
[2016-09-01 21:02] VITALS: BP 155/70; PULSE 79; RESP 18; TEMP 102.7; O2SAT 95
[2016-09-01] MEDS: VANCOMYCIN 1,000 MG/NS 250 ML IV SCH ×2 (21:48)
[2016-09-02 00:47] VITALS: BP 147/64; PULSE 68; RESP 20; TEMP 98.2; O2SAT 96
[2016-09-02 05:23] VITALS: BP 161/73; PULSE 75; RESP 18; TEMP 99.7; O2SAT 95
[2016-09-02] MEDS: PCA - TOTAL MG DILAUDID DELIVERED PER SHIFT OTHER SCH ×3 (05:30→22:00)
[2016-09-02] MEDS: INSULIN ASPART SUPPLEMENTAL SCALE SQ SCH ×4 (06:00→20:48)
--- NOTE | 2016-09-02 07:52 | PD.ORT.PN ---
Subjective Subjective Remarks Patient comfortable Objective Vitals Vital Signs Date Time Temp Pulse Resp B/P Pulse Ox O2 Delivery O2 Flow Rate FiO2 09/02/16 05:30 16 09/02/16 05:23 99.7 75 18 161/73 95 09/02/16 04:00 Room Air 09/02/16 00:47 98.2 68 20 147/64 96 09/02/16 00:00 Room Air 09/01/16 21:02 102.7 79 18 155/70 95 09/01/16 20:00 Room Air 09/01/16 16:00 99.3 76 18 187/78 94 09/01/16 12:00 99.5 60 18 173/78 97 09/01/16 09:45 Room Air 09/01/16 08:00 98.7 72 18 170/75 97 I/O 09/01/16 09/01/16 09/01/16 09/02/16 09/02/16 09/02/16 07:00 15:00 23:00 07:00 15:00 23:00 Intake Total 686 ml 720 ml 1448 ml 973 ml Output Total 100 ml 700 ml 300 ml Balance 586 ml 20 ml 1448 ml 673 ml Intake Oral 720 ml 200 ml IV Total 686 ml 1448 ml 773 ml Output Urine Total 100 ml 700 ml 300 ml # Bowel Movements 1 Result Diagram: 08/31/16 0609 08/30/16 0624 Other Results Cultures positive for MRSA Objective Remarks Sitting up in bed NAD VSS Dressing/VAC intact with litlle drainage thigh soft NVI Assessment & Plan Problem List: (1) Wound dehiscence (2) Infection of below knee amputation stump Assessment and Plan Status post BKA. Revision BKA: POD #3 Culture positive for MRSA PLAN: Maintain VAC for 1-2 more days IV antibiotics Stable orthopedically Jean Marie Frederick MD Sep 02, 2016 07:51
[2016-09-02] MEDS: HYDROmorphone HCL PCA 6 MG/30 ML IV SCH (08:00)
[2016-09-02 08:04] VITALS: BP 159/71; PULSE 77; RESP 16; TEMP 98; O2SAT 97
[2016-09-02] MEDS: SODIUM CHLORIDE 0.9% FLUSH 10 ML FLUSH IV FLUSH SCH ×2 (09:00→20:47)
[2016-09-02] MEDS: DOCUSATE SODIUM 50 MG/SENNA 8.6 MG TAB PO SCH ×2 (09:00→20:46)
[2016-09-02] MEDS: PRAVASTATIN SOD 20 MG TAB PO SCH (09:14)
[2016-09-02] MEDS: METOPROLOL TARTRATE 25 MG TAB PO SCH ×2 (09:14→20:47)
[2016-09-02] MEDS: LISINOPRIL 20 MG TAB PO SCH (09:14)
[2016-09-02] MEDS: cloNIDine HCL 0.1 MG TAB PO SCH (09:14)
[2016-09-02] MEDS: INSULIN DETEMIR 100 UNITS/ML VIAL SQ SCH (09:19)
[2016-09-02 12:04] VITALS: BP 141/63; PULSE 75; RESP 16; TEMP 99.3; O2SAT 95
--- NOTE | 2016-09-02 12:19 | HHI.PR ---
Subjective Remarks Follow-up infected BKA stump/wound dehiscence 08/29/16-patient seen and examined, currently afebrile and denies any significant pain at right BKA stump. 08/30/16-patient seen and examined, Tmax 99.9 however currently afebrile. Patient is nothing by mouth pending trip to allow for debridement and possible wound VAC placement. wound culture positive for MRSA 08/31/16-patient seen and examined, he status post revision right BKA ,denies any right stump pain. Currently afebrile 09/01/16-patient seen and examined; reports some stump pain overnight otherwise stable, afebrile. Currently tolerating by mouth without any competition nausea and vomiting. 09/02/16-patient seen and examined, still continued to complain of right stump throbbing. No other issues Objective Vitals Vital Signs Date Time Temp Pulse Resp B/P Pulse Ox O2 Delivery O2 Flow Rate FiO2 09/02/16 09:00 Room Air 09/02/16 08:30 18 09/02/16 08:04 98.0 77 16 159/71 97 09/02/16 08:00 16 09/02/16 05:30 16 09/02/16 05:23 99.7 75 18 161/73 95 09/02/16 04:00 Room Air 09/02/16 00:47 98.2 68 20 147/64 96 09/02/16 00:00 Room Air 09/01/16 21:02 102.7 79 18 155/70 95 09/01/16 20:00 Room Air 09/01/16 16:00 99.3 76 18 187/78 94 I/O 09/01/16 09/01/16 09/01/16 09/02/16 09/02/16 09/02/16 07:00 15:00 23:00 07:00 15:00 23:00 Intake Total 686 ml 720 ml 1448 ml 973 ml Output Total 100 ml 700 ml 300 ml Balance 586 ml 20 ml 1448 ml 673 ml Intake Oral 720 ml 200 ml IV Total 686 ml 1448 ml 773 ml Output Urine Total 100 ml 700 ml 300 ml # Bowel Movements 1 Result Diagram: 08/31/16 0609 09/02/16 0739 Objective Remarks GENERAL: NAD SKIN: Warm and dry. HEAD: Normocephalic. EYES: No scleral icterus. No injection or drainage. NECK: Supple, trachea midline. No JVD or lymphadenopathy. CARDIOVASCULAR: Regular rate and rhythm without murmurs, gallops, or rubs. RESPIRATORY: Breath sounds equal bilaterally. No accessory muscle use. GASTROINTESTINAL: Abdomen soft, non-tender, nondistended. MUSCULOSKELETAL: No cyanosis, or edema. Right BKA stump with wound VAC in place BACK: Nontender without obvious deformity. No CVA tenderness. Procedures Revision right BKA stump wound VAC placement 08/30/16 A/P Problem List: (1) Wound dehiscence ICD Code: T81.30XA Status: Acute (2) Infection of below knee amputation stump ICD Code: T87.40 Status: Acute Assessment and Plan 71-year-old man with Infection of below knee amputation stump Wound dehiscence right BKA stump Appreciate input from orthopedic surgery and status post revision right BKA with wound VAC placement 08/30/16. Wound VAC management per orthopedic surgery Orthopedic surgery to consider possible removing wound VAC tomorrow 09/03/16 Continue with current antibiotics including Levaquin and vancomycin ; wound culture positive for MRSA Patient to complete at least a 7 days course of IV vancomycin (end date 09/04) Appreciate input from infectious disease specialist Pain management accordingly Hypertension Normotensive on Lopressor 12.5 mg twice a day, Prinivil 40 mg daily, clonidine 0.1 mg daily Diabetes type 2 Continue with insulin sliding scale with fingerstick blood glucose monitoring Continue basal insulin and continue to hold oral hypoglycemic agent Hyperlipidemia Continue statin DVT prophylaxis SCD to only left lower extremity Rahul Malik MD Sep 02, 2016 12:18
[2016-09-02 16:04] VITALS: BP 140/65; PULSE 71; RESP 16; TEMP 99.2; O2SAT 96
[2016-09-02 20:00] VITALS: BP 156/70; PULSE 80; RESP 18; TEMP 98.5; O2SAT 97
[2016-09-02] MEDS: LEVOFLOXACIN 750 MG PREMIX INJ 150 ML IV SCH (20:00)
[2016-09-02] MEDS ORDERED: PHARMACY ORDERED LAB ONE (21:45)
[2016-09-02] MEDS: VANCOMYCIN 1,000 MG/NS 250 ML IV SCH ×2 (22:01)
[2016-09-03] VITALS: BP 154/66; PULSE 69; RESP 18; TEMP 98.9; O2SAT 98
[2016-09-03 04:00] VITALS: BP 156/70; PULSE 77; RESP 18; TEMP 98.9; O2SAT 98
[2016-09-03] MEDS: PCA - TOTAL MG DILAUDID DELIVERED PER SHIFT OTHER SCH ×3 (06:00→21:34)
[2016-09-03] MEDS: INSULIN ASPART SUPPLEMENTAL SCALE SQ SCH ×4 (06:06→21:00)
[2016-09-03 08:00] VITALS: BP 164/74; PULSE 75; RESP 20; TEMP 98.5; O2SAT 98
--- NOTE | 2016-09-03 08:08 | PD.ORT.PN ---
Subjective Subjective Remarks Patient comfortable. Pain controlled. Objective Vitals Vital Signs Date Time Temp Pulse Resp B/P Pulse Ox O2 Delivery O2 Flow Rate FiO2 09/03/16 06:00 16 09/03/16 04:00 Room Air 09/03/16 04:00 98.9 77 18 156/70 98 09/03/16 00:00 Room Air 09/03/16 00:00 98.9 69 18 154/66 98 09/02/16 22:00 14 09/02/16 20:00 98.5 80 18 156/70 97 09/02/16 20:00 Room Air 09/02/16 16:04 99.2 71 16 140/65 96 09/02/16 16:00 Room Air 09/02/16 14:00 18 09/02/16 12:04 99.3 75 16 141/63 95 09/02/16 12:00 Room Air 09/02/16 09:00 Room Air 09/02/16 08:30 18 09/02/16 08:04 98.0 77 16 159/71 97 I/O 09/02/16 09/02/16 09/02/16 09/03/16 09/03/16 09/03/16 07:00 15:00 23:00 07:00 15:00 23:00 Intake Total 973 ml 550 ml 400 ml Output Total 300 ml 1200 ml 150 ml 100 ml Balance 673 ml -650 ml 250 ml -100 ml Intake Oral 200 ml IV Total 773 ml 550 ml 400 ml Output Urine Total 300 ml 1200 ml 150 ml 100 ml # Bowel Movements 0 Result Diagram: 08/31/16 0609 09/02/16 0739 Objective Remarks VSS wound vac removed today incision well approximated sutures intact no signs of infection or drainage noted thigh soft NVI Assessment & Plan Problem List: (1) Wound dehiscence (2) Infection of below knee amputation stump Assessment and Plan Revision BKA: POD #4 Culture positive for MRSA PLAN: Initiate daily dressing changes. Clean with chlorohexidine, apply xeroform, 4x4s, kerlix and santy wrap. IV antibiotics Stable orthopedically -Monitor Chito Nichols Sep 03, 2016 08:08
[2016-09-03] MEDS: DOCUSATE SODIUM 50 MG/SENNA 8.6 MG TAB PO SCH ×2 (08:47→21:28)
[2016-09-03] MEDS: METOPROLOL TARTRATE 25 MG TAB PO SCH ×2 (08:48→21:28)
[2016-09-03] MEDS: cloNIDine HCL 0.1 MG TAB PO SCH (08:49)
[2016-09-03] MEDS: SODIUM CHLORIDE 0.9% FLUSH 10 ML FLUSH IV FLUSH SCH ×2 (08:49→21:28)
[2016-09-03] MEDS: LISINOPRIL 20 MG TAB PO SCH (08:49)
[2016-09-03] MEDS: PRAVASTATIN SOD 20 MG TAB PO SCH (08:49)
[2016-09-03] MEDS: INSULIN DETEMIR 100 UNITS/ML VIAL SQ SCH (08:52)
--- NOTE | 2016-09-03 10:42 | HHI.PR ---
Subjective Remarks Follow-up infected BKA stump/wound dehiscence 08/29/16-patient seen and examined, currently afebrile and denies any significant pain at right BKA stump. 08/30/16-patient seen and examined, Tmax 99.9 however currently afebrile. Patient is nothing by mouth pending trip to allow for debridement and possible wound VAC placement. wound culture positive for MRSA 08/31/16-patient seen and examined, he status post revision right BKA ,denies any right stump pain. Currently afebrile 09/01/16-patient seen and examined; reports some stump pain overnight otherwise stable, afebrile. Currently tolerating by mouth without any competition nausea and vomiting. 09/02/16-patient seen and examined, still continued to complain of right stump throbbing. No other issues 09/03/16-patient seen and examined, wound VAC was removed this morning. Patient stable and afebrile. Objective Vitals Vital Signs Date Time Temp Pulse Resp B/P Pulse Ox O2 Delivery O2 Flow Rate FiO2 09/03/16 08:30 Room Air 09/03/16 08:00 98.5 75 20 164/74 98 09/03/16 06:00 16 09/03/16 04:00 Room Air 09/03/16 04:00 98.9 77 18 156/70 98 09/03/16 00:00 Room Air 09/03/16 00:00 98.9 69 18 154/66 98 09/02/16 22:00 14 09/02/16 20:00 98.5 80 18 156/70 97 09/02/16 20:00 Room Air 09/02/16 16:04 99.2 71 16 140/65 96 09/02/16 16:00 Room Air 09/02/16 14:00 18 09/02/16 12:04 99.3 75 16 141/63 95 09/02/16 12:00 Room Air I/O 09/02/16 09/02/16 09/02/16 09/03/16 09/03/16 09/03/16 07:00 15:00 23:00 07:00 15:00 23:00 Intake Total 973 ml 550 ml 400 ml Output Total 300 ml 1200 ml 150 ml 100 ml Balance 673 ml -650 ml 250 ml -100 ml Intake Oral 200 ml IV Total 773 ml 550 ml 400 ml Output Urine Total 300 ml 1200 ml 150 ml 100 ml # Bowel Movements 0 Result Diagram: 08/31/16 0609 09/02/16 0739 Objective Remarks GENERAL: NAD SKIN: Warm and dry. HEAD: Normocephalic. EYES: No scleral icterus. No injection or drainage. NECK: Supple, trachea midline. No JVD or lymphadenopathy. CARDIOVASCULAR: Regular rate and rhythm without murmurs, gallops, or rubs. RESPIRATORY: Breath sounds equal bilaterally. No accessory muscle use. GASTROINTESTINAL: Abdomen soft, non-tender, nondistended. MUSCULOSKELETAL: No cyanosis, or edema. Dressing over Right BKA stump BACK: Nontender without obvious deformity. No CVA tenderness. Procedures Revision right BKA stump wound VAC placement 08/30/16 A/P Problem List: (1) Wound dehiscence ICD Code: T81.30XA Status: Acute (2) Infection of below knee amputation stump ICD Code: T87.40 Status: Acute Assessment and Plan 71-year-old man with Infection of below knee amputation stump Wound dehiscence right BKA stump Appreciate input from orthopedic surgery and status post revision right BKA with wound VAC placement 08/30/16. Wound VAC removed this a.m. Continue with current antibiotics including Levaquin and vancomycin ; wound culture positive for MRSA Patient to complete at least a 7 days course of IV vancomycin (end date 09/04) Appreciate input from infectious disease specialist Pain management accordingly Hypertension Normotensive on Lopressor 12.5 mg twice a day, Prinivil 40 mg daily, clonidine 0.1 mg daily Diabetes type 2 Continue with insulin sliding scale with fingerstick blood glucose monitoring Continue basal insulin and continue to hold oral hypoglycemic agent Hyperlipidemia Continue statin DVT prophylaxis SCD to only left lower extremity Rahul Malik MD Sep 03, 2016 10:42
[2016-09-03 12:00] VITALS: BP 144/67; PULSE 65; RESP 20; TEMP 98.9; O2SAT 96
[2016-09-03 16:00] VITALS: BP 136/66; PULSE 65; RESP 20; TEMP 98.4; O2SAT 99
[2016-09-03] MEDS: SODIUM CHLORIDE 0.9% FLUSH 10 ML FLUSH IV FLUSH PRN (16:45)
[2016-09-03] MEDS: VANCOMYCIN 1,000 MG/NS 250 ML IV SCH ×2 (16:45)
[2016-09-03 20:00] VITALS: BP 123/58; PULSE 68; RESP 16; TEMP 98.3; O2SAT 98
[2016-09-03] MEDS: LEVOFLOXACIN 750 MG PREMIX INJ 150 ML IV SCH (21:29)
[2016-09-04] VITALS: BP 133/60; PULSE 58; RESP 16; TEMP 98.1; O2SAT 96
[2016-09-04 04:00] VITALS: BP 133/58; PULSE 56; RESP 18; TEMP 98.2; O2SAT 96
[2016-09-04] MEDS: PCA - TOTAL MG DILAUDID DELIVERED PER SHIFT OTHER SCH (05:24)
[2016-09-04] MEDS: INSULIN ASPART SUPPLEMENTAL SCALE SQ SCH ×4 (06:21→20:58)
[2016-09-04 08:05] VITALS: BP 146/68; PULSE 59; RESP 18; TEMP 98; O2SAT 98
[2016-09-04] MEDS: PRAVASTATIN SOD 20 MG TAB PO SCH (09:46)
[2016-09-04] MEDS: LISINOPRIL 20 MG TAB PO SCH (09:46)
[2016-09-04] MEDS: METOPROLOL TARTRATE 25 MG TAB PO SCH ×2 (09:47→20:59)
[2016-09-04] MEDS: DOCUSATE SODIUM 50 MG/SENNA 8.6 MG TAB PO SCH ×2 (09:47→20:59)
[2016-09-04] MEDS: cloNIDine HCL 0.1 MG TAB PO SCH (09:47)
[2016-09-04] MEDS: VANCOMYCIN 1,000 MG/NS 250 ML IV SCH ×2 (09:47)
[2016-09-04] MEDS: SODIUM CHLORIDE 0.9% FLUSH 10 ML FLUSH IV FLUSH SCH ×2 (09:48→21:00)
[2016-09-04] MEDS: INSULIN DETEMIR 100 UNITS/ML VIAL SQ SCH (09:55)
[2016-09-04 12:38] VITALS: BP 137/64; PULSE 57; RESP 18; TEMP 98.3; O2SAT 100
--- NOTE | 2016-09-04 12:43 | HHI.PR ---
Subjective Remarks Follow-up infected BKA stump/wound dehiscence 08/29/16-patient seen and examined, currently afebrile and denies any significant pain at right BKA stump. 08/30/16-patient seen and examined, Tmax 99.9 however currently afebrile. Patient is nothing by mouth pending trip to allow for debridement and possible wound VAC placement. wound culture positive for MRSA 08/31/16-patient seen and examined, he status post revision right BKA ,denies any right stump pain. Currently afebrile 09/01/16-patient seen and examined; reports some stump pain overnight otherwise stable, afebrile. Currently tolerating by mouth without any competition nausea and vomiting. 09/02/16-patient seen and examined, still continued to complain of right stump throbbing. No other issues 09/03/16-patient seen and examined, wound VAC was removed this morning. Patient stable and afebrile. 09/04/16-patient seen and examined, stable and no complaint. Currently afebrile. Would like to be discharged home. Objective Vitals Vital Signs Date Time Temp Pulse Resp B/P Pulse Ox O2 Delivery O2 Flow Rate FiO2 09/04/16 12:38 98.3 57 18 137/64 100 09/04/16 08:05 98.0 59 18 146/68 98 09/04/16 05:24 14 09/04/16 04:00 98.2 56 18 133/58 96 09/04/16 00:00 98.1 58 16 133/60 96 09/03/16 21:34 14 09/03/16 20:00 98.3 68 16 123/58 98 09/03/16 19:45 Room Air 09/03/16 16:00 Room Air 09/03/16 16:00 98.4 65 20 136/66 99 09/03/16 14:01 18 I/O 09/03/16 09/03/16 09/03/16 09/04/16 09/04/16 09/04/16 07:00 15:00 23:00 07:00 15:00 23:00 Intake Total 242 ml 120 ml Output Total 100 ml 100 ml Balance -100 ml 142 ml 120 ml Intake Oral 240 ml 120 ml IV Total 2 ml Output Urine Total 100 ml 100 ml # Voids 2 1 # Bowel Movements 2 1 Result Diagram: 08/31/16 0609 09/04/16 0648 Objective Remarks GENERAL: NAD SKIN: Warm and dry. HEAD: Normocephalic. EYES: No scleral icterus. No injection or drainage. NECK: Supple, trachea midline. No JVD or lymphadenopathy. CARDIOVASCULAR: Regular rate and rhythm without murmurs, gallops, or rubs. RESPIRATORY: Breath sounds equal bilaterally. No accessory muscle use. GASTROINTESTINAL: Abdomen soft, non-tender, nondistended. MUSCULOSKELETAL: No cyanosis, or edema. Dressing over Right BKA stump BACK: Nontender without obvious deformity. No CVA tenderness. Procedures Revision right BKA stump wound VAC placement 08/30/16 A/P Problem List: (1) Wound dehiscence ICD Code: T81.30XA Status: Acute (2) Infection of below knee amputation stump ICD Code: T87.40 Status: Acute Assessment and Plan 71-year-old man with Infection of below knee amputation stump Wound dehiscence right BKA stump Appreciate input from orthopedic surgery and status post revision right BKA with wound VAC placement 08/30/16. Wound VAC was removed 09/03/16. Continue current dressing change Continue with current antibiotics including Levaquin and vancomycin ; wound culture positive for MRSA Patient to complete at least a 7 days course of IV vancomycin (end date today 09/04/16) Appreciate input from infectious disease specialist Pain management accordingly Hypertension Normotensive on Lopressor 12.5 mg twice a day, Prinivil 40 mg daily, clonidine 0.1 mg daily Diabetes type 2 Continue with insulin sliding scale with fingerstick blood glucose monitoring Continue basal insulin and continue to hold oral hypoglycemic agent Hyperlipidemia Continue statin DVT prophylaxis SCD to only left lower extremity Rahul Malik MD Sep 04, 2016 12:43
[2016-09-04] MEDS ORDERED: oxyCODONE/ACETAMINOPHEN 7.5 MG/325 MG TAB PO PRN (13:00)
--- NOTE | 2016-09-04 13:03 | HHI.FF ---
Face to Face Verification Diagnosis: (1) Wound dehiscence (2) Infection of below knee amputation stump Physical Therapy Order: Evaluate and Treat Home Health Nursing Order: Wound care and dressing changes I have seen patient Jean Marie EganJr elia on 09/04/16. My clinical findings support the need for the requested home health care services because: Deconditioned w/ increased weakness I certify that my clinical findings support that this patient is homebound because: Poor cardiac reserve Rahul Malik MD Sep 04, 2016 13:02
--- NOTE | 2016-09-04 14:43 | HHI.IDPN ---
Note Infectious Disease Note Patient lc lopez. No complaints. Afebrile. Post revision of R. below-knee amputation stump. PAST MEDICAL HISTORY: 1. Diabetes mellitus. 2. Hypertension. 3. Rectal cancer in 2004 treated with chemotherapy, radiation and surgery. 4. 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 ALLERGIES: NO KNOWN DRUG ALLERGIES. ANTIBIOTICS: 1. Vancomycin. 2. Levaquin. SOCIAL HISTORY: The patient denies tobacco, alcohol or illicit drugs. FAMILY HISTORY: Noncontributory. OBJECTIVE: Vital Signs Date Time Temp Pulse Resp B/P Pulse Ox O2 Delivery O2 Flow Rate FiO2 09/04/16 12:38 98.3 57 18 137/64 100 09/04/16 08:05 98.0 59 18 146/68 98 09/04/16 08:00 Room Air 09/04/16 05:24 14 09/04/16 04:00 98.2 56 18 133/58 96 09/04/16 00:00 98.1 58 16 133/60 96 09/03/16 21:34 14 09/03/16 20:00 98.3 68 16 123/58 98 09/03/16 19:45 Room Air 09/03/16 16:00 Room Air 09/03/16 16:00 98.4 65 20 136/66 99 Laboratory Tests Test 09/04/16 06:48 Creatinine 1.18 MG/DL Estimat Glomerular Filtration 74 ML/MIN Rate PHYSICAL EXAMINATION: GENERAL: No acute distress. Awake and alert and oriented. HEAD, EYES, EARS, NOSE, THROAT: No icterus. Oropharynx no visible lesions. NECK: The neck is supple without adenopathy. LUNGS: Clear breath sounds. HEART: Regular S1-S2. EXTREMITIES: Right stump wound clean. No drainage. SKIN: No rash. NEUROLOGIC: Alert and oriented. No gross focal findings. PSYCHIATRIC: Calm, pleasant and cooperative. IMPRESSION: 1. Infected right below-knee amputation stump wound with culture showing MRSA and Klebsiella. Post stump revision. Wound looks good. No evidence of ongoing infection. 2. Diabetes mellitus. RECOMMENDATIONS: 1. Stop vancomycin. 2. Stop Levaquin. 3. No need for continued antibiotic treatment. Okay to discharge from ID standpoint. Above communicated with supervisor case loading. Doug Castellano MD Sep 04, 2016 14:43
[2016-09-04 16:05] VITALS: BP 141/65; PULSE 55; RESP 18; TEMP 98.2; O2SAT 99
[2016-09-04] MEDS: oxyCODONE/ACETAMINOPHEN 5 MG/325 MG TAB PO PRN ×2 (16:54→21:00)
[2016-09-04 20:00] VITALS: BP 157/71; PULSE 53; RESP 18; TEMP 98; O2SAT 99
[2016-09-05] VITALS: BP 159/72; PULSE 52; RESP 18; TEMP 97.8; O2SAT 99
[2016-09-05] MEDS ORDERED: PHARMACY ORDERED LAB ONE (03:45)
[2016-09-05 04:45] VITALS: BP 171/78; PULSE 56; RESP 18; TEMP 97.8; O2SAT 99
[2016-09-05] MEDS: INSULIN ASPART SUPPLEMENTAL SCALE SQ SCH ×2 (06:16→11:00)
--- NOTE | 2016-09-05 07:16 | PD.ORT.PN ---
Subjective Subjective Remarks Patient comfortable Objective Vitals Vital Signs Date Time Temp Pulse Resp B/P Pulse Ox O2 Delivery O2 Flow Rate FiO2 09/05/16 04:45 97.8 56 18 171/78 99 09/05/16 00:00 97.8 52 18 159/72 99 09/04/16 20:00 98.0 53 18 157/71 99 09/04/16 19:45 Room Air 09/04/16 16:05 98.2 55 18 141/65 99 09/04/16 12:38 98.3 57 18 137/64 100 09/04/16 08:05 98.0 59 18 146/68 98 09/04/16 08:00 Room Air I/O 09/04/16 09/04/16 09/04/16 09/05/16 09/05/16 09/05/16 07:00 15:00 23:00 07:00 15:00 23:00 Intake Total 120 ml 730 ml 120 ml Balance 120 ml 730 ml 120 ml Intake Oral 120 ml 480 ml 120 ml IV Total 250 ml # Voids 1 2 # Bowel Movements 1 1 Result Diagram: 09/04/16 0648 Objective Remarks incision well approximated sutures intact mild serous drainage centrally thigh soft NVI Assessment & Plan Problem List: (1) Wound dehiscence (2) Infection of below knee amputation stump Assessment and Plan Revision BKA: POD #6 Culture positive for MRSA Clinically the infection appears under control following surgery PLAN: daily dressing changes. Clean with chlorohexidine, apply xeroform, 4x4s, kerlix and santy wrap. Stable orthopedically -Ok to D/C home -Patient must maintain diabetes under control at home -Follow up in office in 4 weeks Jean Marie Frederick MD Sep 05, 2016 07:16
[2016-09-05 08:34] VITALS: BP 169/73; PULSE 55; RESP 20; TEMP 98.4; O2SAT 99
--- NOTE | 2016-09-05 08:44 | HHI.PR ---
Subjective Remarks Follow-up infected BKA stump/wound dehiscence 08/29/16-patient seen and examined, currently afebrile and denies any significant pain at right BKA stump. 08/30/16-patient seen and examined, Tmax 99.9 however currently afebrile. Patient is nothing by mouth pending trip to allow for debridement and possible wound VAC placement. wound culture positive for MRSA 08/31/16-patient seen and examined, he status post revision right BKA ,denies any right stump pain. Currently afebrile 09/01/16-patient seen and examined; reports some stump pain overnight otherwise stable, afebrile. Currently tolerating by mouth without any competition nausea and vomiting. 09/02/16-patient seen and examined, still continued to complain of right stump throbbing. No other issues 09/03/16-patient seen and examined, wound VAC was removed this morning. Patient stable and afebrile. 09/04/16-patient seen and examined, stable and no complaint. Currently afebrile. Would like to be discharged home. 09/05/16-patient seen and examined, afebrile, no longer on antibiotics. Clear for discharge by orthopedic surgery this morning. Objective Vitals Vital Signs Date Time Temp Pulse Resp B/P Pulse Ox O2 Delivery O2 Flow Rate FiO2 09/05/16 08:34 98.4 55 20 169/73 99 09/05/16 04:45 97.8 56 18 171/78 99 09/05/16 00:00 97.8 52 18 159/72 99 09/04/16 20:00 98.0 53 18 157/71 99 09/04/16 19:45 Room Air 09/04/16 16:05 98.2 55 18 141/65 99 09/04/16 12:38 98.3 57 18 137/64 100 I/O 09/04/16 09/04/16 09/04/16 09/05/16 09/05/16 09/05/16 07:00 15:00 23:00 07:00 15:00 23:00 Intake Total 120 ml 730 ml 120 ml Balance 120 ml 730 ml 120 ml Intake Oral 120 ml 480 ml 120 ml IV Total 250 ml # Voids 1 2 1 # Bowel Movements 1 1 1 Result Diagram: 09/04/16 0648 Imaging Last Impressions Femur X-Ray 08/28/16 0000 Signed Impressions: Service Date/Time: Sunday, August 28, 2016 19:23 - CONCLUSION: 1. Right- sided below knee amputation. No acute bony abnormality. Edwin Moreno MD Objective Remarks GENERAL: NAD SKIN: Warm and dry. HEAD: Normocephalic. EYES: No scleral icterus. No injection or drainage. NECK: Supple, trachea midline. No JVD or lymphadenopathy. CARDIOVASCULAR: Regular rate and rhythm without murmurs, gallops, or rubs. RESPIRATORY: Breath sounds equal bilaterally. No accessory muscle use. GASTROINTESTINAL: Abdomen soft, non-tender, nondistended. MUSCULOSKELETAL: No cyanosis, or edema. Dressing over Right BKA stump BACK: Nontender without obvious deformity. No CVA tenderness. Procedures Revision right BKA stump wound VAC placement 08/30/16 A/P Problem List: (1) Wound dehiscence ICD Code: T81.30XA Status: Acute (2) Infection of below knee amputation stump ICD Code: T87.40 Status: Acute Assessment and Plan 71-year-old man with Infection of below knee amputation stump Wound dehiscence right BKA stump Appreciate input from orthopedic surgery and status post revision right BKA with wound VAC placement 08/30/16. Wound VAC was removed 09/03/16. Continue current dressing change Completed antimicrobial therapy including Levaquin and vancomycin 09/04/16 ; wound culture positive for MRSA Appreciate input from infectious disease specialist Pain management accordingly Hypertension Normotensive on Lopressor 12.5 mg twice a day, Prinivil 40 mg daily, clonidine 0.1 mg daily Diabetes type 2 Continue with insulin sliding scale with fingerstick blood glucose monitoring Continue basal insulin and continue to hold oral hypoglycemic agent Hyperlipidemia Continue statin DVT prophylaxis SCD to only left lower extremity Rahul Malik MD Sep 05, 2016 08:44
[2016-09-05] MEDS ORDERED: PERI8.6T PO (08:46)
[2016-09-05] MEDS ORDERED: HYDR-3288 PO (08:46)
--- NOTE | 2016-09-05 08:49 | HHI.DS ---
Discharge Summary Admission Date Aug 28, 2016 at 20:53 Discharge Date: Sep 05, 2016 Admitting Diagnosis wound dehiscence, infected wound (1) Wound dehiscence ICD Code: T81.30XA (2) Infection of below knee amputation stump ICD Code: T87.40 Procedures Revision right BKA stump wound VAC placement 08/30/16 Brief History - From Admission [facility] 3 x a week m, w, f did not come friday another jeffry did and he thought it was ok but today she tought it was open, drain, bone exposed was with wound vac treatment no fever no falls or trauma diabetic have not smoked since 1981 amputation due to diabetic wound no other symptoms CBC/BMP: 09/04/16 0648 Significant Findings Laboratory Tests Test 09/02/16 09/04/16 22:00 06:48 Vancomycin Level Trough 10.9 MCG/ML (5.0-10.0) Estimat Glomerular Filtration 74 ML/MIN (>89) Rate Imaging Last Impressions Femur X-Ray 08/28/16 0000 Signed Impressions: Service Date/Time: Sunday, August 28, 2016 19:23 - CONCLUSION: 1. Right- sided below knee amputation. No acute bony abnormality. Edwin Moreno MD PE at Discharge GENERAL: NAD SKIN: Warm and dry. HEAD: Normocephalic. EYES: No scleral icterus. No injection or drainage. NECK: Supple, trachea midline. No JVD or lymphadenopathy. CARDIOVASCULAR: Regular rate and rhythm without murmurs, gallops, or rubs. RESPIRATORY: Breath sounds equal bilaterally. No accessory muscle use. GASTROINTESTINAL: Abdomen soft, non-tender, nondistended. MUSCULOSKELETAL: No cyanosis, or edema. Dressing over Right BKA stump BACK: Nontender without obvious deformity. No CVA tenderness. Hospital Course Patient admitted secondary to Infection of below knee amputation stump and Wound dehiscence right BKA stump for which orthopedic surgery was consulted and patient underwent revision right BKA with wound VAC placement 08/30/16 which was subsequently removed 09/03/16. Infectious disease in second was consulted and patient started on antibiotics including vancomycin and Levaquin, which were completed on 09/04/16. He was continued on his treatment for hypertensions , and place on sliding scale insulin. Pain management was provided accordingly. Vitals were monitored and prior to discharge, patient conditions improved. Pt Condition on Discharge: Stable Discharge Disposition: Disch w/ Home Health Serv Discharge Time: > 30 minutes Discharge Instructions DIET: Follow Instructions for: Diabetic Diet Activities you can perform: Regular-No Restrictions Follow up Referrals: Orthopedics - 4 Weeks with Jean Marie Frederick MD PCP Follow-up - 1 Week New Medications: Hydrocodone-Acetaminophen ([place]) 7.5-325 mg Tab 1 TAB PO Q6H PRN PAIN #30 Ref 0 TAB Sennosides-Docusate Sodium (Teresa-Colace) 8.6-50 Mg Tab 1 TAB PO BID PRN Constipation #60 Ref 0 TAB Continued Medications: Clonidine (Clonidine) 0.1 Mg Tab 0.1 MG PO DAILY Blood Pressure Management #60 Ref 1 TAB Ferrous Sulfate (Ferosul) 325 Mg Tablet 325 MG PO DAILY Nutritional Supplement Days 30 Ref 1 Insulin Detemir Inj (Levemir Inj) 1,000 unit/ 10 ML Vial 10 UNITS SQ DAILY Blood Sugar Management Days 30 Ref 1 INJECTION Lisinopril (Lisinopril) 40 Mg Tab 40 MG PO DAILY Blood Pressure Management #30 Ref 0 TAB Metformin (Metformin) 500 Mg Tab 500 MG PO BIDPC With meals Blood Sugar Management #60 Ref 0 TAB Metoprolol Tartrate (Metoprolol Tartrate) 25 Mg Tab 12.5 MG PO BID Blood Pressure Management Days 30 Ref 1 TAB Pravastatin (Pravastatin) 20 Mg Tab 20 MG PO DAILY Cholesterol Management #30 Ref 1 TAB Discontinued Medications: Hydrocodone-Acetaminophen (Hydrocodone-Acetaminophen) 5-325 mg Tab 1 TAB PO Q6H PRN PAIN Ref 0 TAB Rahul Malik MD Sep 05, 2016 08:49
[2016-09-05] MEDS: DOCUSATE SODIUM 50 MG/SENNA 8.6 MG TAB PO SCH (09:00)
[2016-09-05] MEDS: SODIUM CHLORIDE 0.9% FLUSH 10 ML FLUSH IV FLUSH SCH (09:00)
[2016-09-05] MEDS: PRAVASTATIN SOD 20 MG TAB PO SCH (09:08)
[2016-09-05] MEDS: METOPROLOL TARTRATE 25 MG TAB PO SCH (09:08)
[2016-09-05] MEDS: cloNIDine HCL 0.1 MG TAB PO SCH (09:08)
[2016-09-05] MEDS: LISINOPRIL 20 MG TAB PO SCH (09:08)
[2016-09-05] MEDS: INSULIN DETEMIR 100 UNITS/ML VIAL SQ SCH (09:21)
== END 2016-09-05 11:30 | disposition home health service (06) | DRG 476 ==
LOC: NEPC 17:23 → NEDA 20:53 → N04A 22:32
PROVIDERS: ADMIT Hospitalist; ATTEND Hospitalist
PROC: 0Y6H0Z3 Detachment at Right Lower Leg, Low, Open Approach (ICD-10-PCS; principal; 2016-08-30 18:00)
DX: T87.43 Infection of amputation stump, right lower extremity (principal); E11.9 Type 2 diabetes mellitus without complications; B96.1 Klebsiella pneumoniae [K. pneumoniae] as the cause of diseases classified elsewhere; B95.62 Methicillin resistant Staphylococcus aureus infection as the cause of diseases classified elsewhere; I10 Essential (primary) hypertension; E78.5 Hyperlipidemia, unspecified; T87.81 Dehiscence of amputation stump; M19.90 Unspecified osteoarthritis, unspecified site; Z79.84 Long term (current) use of oral hypoglycemic drugs; Z85.048 Personal history of other malignant neoplasm of rectum, rectosigmoid junction, and anus; Z92.21 Personal history of antineoplastic chemotherapy; Z92.3 Personal history of irradiation; Y83.5 Amputation of limb(s) as the cause of abnormal reaction of the patient, or of later complication, without mention of misadventure at the time of the procedure; Z87.891 Personal history of nicotine dependence
CPT/HCPCS: 73552; 80048; 80053; 80202; 82565; 82948; 83605; 85025; 85652; 86140; 86403; 87015; 87040; 87070; 87077; 87102; 87116; 87147; 87186; 87205; 87206; 94150; 96365; 96375; J0690; J1170; J1580; J1815; J1956; J2270; J2405; J3010; J3370; J7050; J7120